=== PATIENT | female | born 1945 | race Caucasian/White ===

== ENCOUNTER → 2018-02-06 09:02 | Outpatient (CLI) | payer MEDICARE, MEDICAID, SELFPAY ==
--- NOTE | 2018-02-06 09:05 | XR_ITS ---
XR DEXA axial skeleton HISTORY: ITS.REASON: OSTEOPAROSIS ORDERING PHYSICIAN: Lona Mc PATIENT AGE: 72 years COMPARISON: None FINDINGS: The BMD measured at the Total Left femoral neck is 0.551 g/cm squared with a T score of -3.6. This is considered Osteoporotic according to the World Health Organization criteria. Fracture risk is High. Treatment is advised. IMPRESSION: Osteoporosis with high fracture risk. Treatment is advised. Suggest follow-up exam January 2019.
== END ==
PROVIDERS: PCP Nurse Practitioner Family; Visit Provider Nurse Practitioner Family
DX: M81.0 Age-related osteoporosis without current pathological fracture (principal)
CPT/HCPCS: 77080

== ENCOUNTER → 2021-03-16 09:14 | Outpatient (CLI) | payer MEDICARE, MEDICAID, SELFPAY ==
--- NOTE | 2021-03-16 09:19 | XR_ITS ---
PROCEDURE: XR DEXA AXIAL SKELETON CLINICAL HISTORY: OSTEOPOROSIS COMPARISON: CR DEXAAX XR DEXA axial skeleton from 02/06/2018 FINDINGS: The right hip BMD is 0.509 with a T-score of -3.6. The left hip BMD is 0.514 with a T-score of -3.5. The lumbar spine BMD is 0.773 with a T-score of -2.5. Previously the lowest density was in the left femur with a T-score of -3.6 IMPRESSION: This patient is considered osteoporotic according to the World Health Organization criteria. Fracture risk is high. Treatment is advised. Based on these results a follow-up exam is recommended in 1 year. Dictated by: Colton Fernandez MD 03/16/2021 14:05 Colton Fernandez MD in [place] 03/16/2021 14:05
== END ==
PROVIDERS: PCP Nurse Practitioner Family; Visit Provider Nurse Practitioner Family
DX: M81.0 Age-related osteoporosis without current pathological fracture (principal)
CPT/HCPCS: 77080

== ENCOUNTER → 2022-04-06 11:28 | Outpatient (CLI) | payer MEDICARE, MEDICAID, SELFPAY | PROVIDERS: PCP Student in an Organized Health Care Education/Training Program; Visit Provider Student in an Organized Health Care Education/Training Program | DX: N39.0 Urinary tract infection, site not specified (principal); B96.1 Klebsiella pneumoniae [K. pneumoniae] as the cause of diseases classified elsewhere | CPT/HCPCS: 87086; 87088; 87186 ==

== ENCOUNTER 2022-04-13 11:18 | Observation (INO) | payer MEDICARE, MEDICAID, SELFPAY ==
[2022-04-13] VITALS (12 sets, daily range): BP systolic 125–176; BP diastolic 54–98; PULSE 86–101; RESP 18–26; TEMP 36.8–37.1; O2SAT 87–100; BMI 16.2; BMI 16.0
--- NOTE | 2022-04-13 11:43 | XR_ITS ---
FINAL REPORT CLINICAL HISTORY: cough FINDINGS: CHEST TWO-VIEW Extensive bilateral airspace opacity most suspicious for pneumonia. Underlying emphysema. Trace bilateral pleural effusions. The mediastinum as a normal appearance. The cardiac silhouette is unremarkable. IMPRESSION: Extensive airspace opacity most suspicious for bilateral pneumonia. Reviewed, Interpreted and Dictated by Malena Pang MD Transcribed by Killian Ramirez Authenticated and . [facility]
--- NOTE | 2022-04-13 11:51 | PC.NURSE ---
pt ambulatory to radiology with creative technologist
--- NOTE | 2022-04-13 11:58 | PC.NURSE ---
pt back from radiology via w/c
[2022-04-13 12:04] LABS: Basophils # 0.1 K/mm3 (0-0.2); Basophils % 0.6 % (0.1-2.0); Eosinophils # 0.1 K/mm3 (0.0-0.4); Eosinophils % 0.7 % (0.1-12.0); Hematocrit 40.4 % (37.0-47.0); Hemoglobin 13.7 g/dL (12.2-16.2); Lymphocytes # 1.3 K/mm3 (0.7-4.5); Mean Corpuscular HGB Conc 33.8 g/dL (31.8-35.4); Mean Corpuscular Hemoglobin 31.6 pg (27.0-31.2); Mean Corpuscular Volume 93.3 fl (81-99); Mean Platelet Volume 8.2 fl (7.4-10.4); Monocytes # 0.7 K/mm3 (0.1-1.0); Monocytes % 4.7 % (1.7-9.3); Neutrophils # 12.5 K/mm3 (1.8-7.8); Platelet Count 501 K/mm3 (142-424); Red Blood Count 4.33 M/mm3 (4.20-5.40); Red Cell Distribution Width 12.8 % (11.5-17.5); White Blood Count 14.7 K/mm3 (4.8-10.8)
--- NOTE | 2022-04-13 12:09 | HMH.EDGENADL ---
Discharge Plan Disposition Patient Disposition: Admitted As Inpatient Condition: Fair Clinical Impressions Clinical Impression: Bilateral pneumonia, Hyponatremia Discharge ED Provider: Seamus Ahumada General Adult HPI General Chief complaint: Recheck/Abnormal Lab/Rx Stated complaint: possible infection, sent by Brandi Mc Time Seen by Provider: 04/13/22 11:25 Mode of Arrival: Ambulatory Source of Information: Patient Limitations: No Limitations Description of Symptoms (Recalled from ER Triage Doc. by RN): pt to ed via pov. pt states she was sent by pcp (brandi mc) for either a high or low wbc count and she states she was told she had some sort of infection. pt states she seen her pcp for generalized weakness and acough x2 weeks. pt states prior to that visit she was being treated for a uti dx earlier this month. spoke with pcp who states pt had labs drawn yesterday and her wbc came back at 17 with some electrolyte imbalances they wanted her to seek treatment for. History of Present Illness HPI narrative: Patient is a 76-year-old female with a past medical history of smoking, hypertension, COPD who presents with concern for abnormal lab. She states that she went to her PCPs office recently and had labs drawn. She says that she was told to come to the ED today because they were concerned that her white blood cell count was either high or low. She does not remember which one it was. We did call her PCP here and they report that her white blood cell count was 17. She says that during that time she said no fever or chills. She says that she has been having a productive cough with green sputum which is abnormal for her. She does not wear oxygen at home. She denies any abdominal pain. Does endorse some shortness of breath but this is baseline for her. Denies any urinary symptoms at this time. Related Data Home Medications Medication Instructions Recorded Confirmed buspirone 10 mg tablet 10 mg PO BID Anxiety 09/21/17 04/13/22 omeprazole 20 mg capsule,delayed 20 mg PO DAILY GERD 09/21/17 04/13/22 release tiotropium bromide 18 mcg capsule 1 puff inhalation DAILY Breathing 09/21/17 04/13/22 with inhalation device (Spiriva problems with HandiHaler) albuterol sulfate 2.5 mg/3 mL 2.5 mg inhalation Q4HP PRN Wheezing 04/13/22 04/13/22 (0.083 %) solution for nebulization alendronate 70 mg tablet 70 mg PO WEEKLY Osteoporosis 04/13/22 04/13/22 cefdinir 300 mg capsule 300 mg PO BID Infection 04/13/22 04/13/22 dextromethorphan-guaifenesin 30 1 tab PO Q12H Cough 04/13/22 04/13/22 mg-600 mg tablet extended [id number] hr lisinopril 20 1 tab PO DAILY Hypertension 04/13/22 04/13/22 mg-hydrochlorothiazide 25 mg tablet Allergies Allergy/AdvReac Type Severity Reaction Status Date / Time No Known Allergies Allergy Verified 04/06/22 11:07 [facility] Disclaimer: The information contained in this section may have been updated after the patient was seen, as this information can be updated by other users. Social History Smoking Status: Current every day smoker tobacco type: cigarettes alcohol intake: never current occupational status: retired Travel in the last 8 weeks: None household members: family housing: house ROS Obtained: Yes All systems reviewed & no additional complaints except as documented A 14 point review of system was obtained and otherwise negative except per HPI Physical Exam General General appearance: alert and in no apparent distress Head Head exam: atraumatic, normocephalic and normal inspection Eye Eye exam: Present normal appearance, PERRL and EOMI ENT ENT exam: Present normal exam, normal oropharynx, mucous membranes moist and normal external ear exam Neck Neck exam: Present normal inspection, full ROM and trachea midline; Absent meningismus or lymphadenopathy Chest Chest inspection: Present normal inspecti
[2022-04-13 12:11] LABS: Lactic Acid 0.8 mmol/L (0.7-2.1)
[2022-04-13 12:15] LABS: MANUAL DIFFERENTIAL MANUAL DIFFERENTIAL (MANUAL DIFF)
[2022-04-13 12:28] LABS: Alanine Aminotransferase 25 U/L (12-78); Albumin Level 3.6 g/dl (3.5-5.0); Albumin/Globulin Ratio 0.8 (1.1-1.8); Alkaline Phosphatase 138 U/L (38-126); Anion Gap 13.8 mEq/L (5-15); Aspartate Amino Transferase 47 U/L (14-36); Bilirubin,Total 0.8 mg/dl (0.2-1.3); Blood Urea Nitrogen 4 mg/dl (7-17); Calcium 8.7 mg/dl (8.4-10.2); Carbon Dioxide 32 mmol/L (22.0-30.0); Chloride 76 mmol/L (98-107); Creatinine Clearance Estimated 34 mL/min (50-200); Estimated Glomerular Filt Rate 121 ml/min (>60); GFR (African American) 146 ML/MIN (>60); Globulin 4.3 g/dL (1.3-3.2); Glucose 97 mg/dl (74-100); Potassium 3.8 mmoL/L (3.5-5.1); Sodium 118 mmol/L (136-145); Total Protein,Serum 7.9 g/dl (6.3-8.2)
[2022-04-13 12:29] LABS: Procalcitonin 0.075 ng/mL (0.0-2.0)
[2022-04-13 12:33] LABS: C-Reactive Protein 81.3 mg/L (0-4)
[2022-04-13 12:35] LABS: Microscopic, Urine URINE MICROSCOPIC (MICROSCOPIC)
[2022-04-13 12:39] LABS: Appearance,Urine CLEAR (Clear); Bilirubin,Urine Negative (Negative); Blood, Urine Negative (Negative); Color,Urine YELLOW (Yellow); Glucose,Urine (UA) Negative (Negative); Ketones,Urine 1+ (Negative); Leukocyte Esterase,Urine Negative (Negative); Nitrate,Urine Negative (Negative); Protein,Urine Negative (Negative)
[2022-04-13 12:39] LABS: NT Pro Brain Natriuretic Pep. 686 pg/mL (0-125)
[2022-04-13 12:58] LABS: Bacteria,Urine Trace /lpf
[2022-04-13 13:03] LABS: Lymphocytes % 13 % (10-50); Monocytes % 8 % (2-9); Neutrophils % 79 % (42-76); Platelet Estimate Slight Increase; RBC Morphology Normal; Total Cells Counted 100
[2022-04-13 13:23] LABS: Coronavirus 19, PCR Not Detected (NotDetected); Influenza A, PCR Not Detected (NotDetected); Influenza B, PCR Not Detected (NotDetected)
--- NOTE | 2022-04-13 13:34 | PC.NURSE ---
[id number] DR GOYAL SPEAKING WITH DR RIVERA FOR ADMISSION
--- NOTE | 2022-04-13 13:36 | PC.NURSE ---
DR GOYAL AT BEDSIDE TO DISCUSS ADMISSION WITH PT
--- NOTE | 2022-04-13 13:36 | PC.NURSE ---
CARE MANAGEMENT NOTIFIED OF ADMISSION
--- NOTE | 2022-04-13 13:41 | HMH.PHAINT1 ---
Pharmacy Intervention Comments: MEDICATION RECONCILIATION COMPLETED ON PATIENT USING EXTERNAL FILL HISTORY FROM PHARMACY. -JOE ALFRED, FARHAND
--- NOTE | 2022-04-13 14:22 | EXP.HP ---
History of Present Illness *Admission Date: 04/13/22 *Reason for visit:: Cough, poor appetite, abnormal labs with PCP. *History of present illness: Ms. Llamas is a pleasant 76-year-old female who presented to the ER at the request of her primary care physician due to abnormal labs obtained yesterday. She states that she has been sick for the past week or more with mildly productive cough. Had fever last week T-max 102. Saw her primary care doctor yesterday and was started on cefdinir (has taken 2 doses). Feels marginally better this morning but was called by her PCP after labs returned showing low sodium and elevated white count. On arrival to the ER, patient is ill-appearing but not toxic. Vitals with tachycardia and intermittent hypoxia. Started on 2 L nasal cannula. Work-up initiated including chest x-ray, CBC, CMP. Sodium of 118, white cell count of 14,000. Chest imaging showing bilateral airspace disease/infiltrates. Medicine consulted for admission for hyponatremia and pneumonia. Patient started on azithromycin and ceftriaxone. Requiring 2 L nasal cannula oxygen by the time she arrived to the floor. On my evaluation, she has her sister and grandson at bedside. They assist with providing history. Patient denies any confusion, chest pain, nausea, vomiting, diarrhea. No falls. Does complain of being weak and having lack of appetite for the past week. Still making urine but less than usual. Is feeling somewhat better since having initiation of IV fluids and supplemental oxygen. [facility] Disclaimer: The information contained in this section may have been updated after the patient was seen, as this information can be updated by other users. Medical History Anxiety Cataract GERD (gastroesophageal reflux disease) Osteoporosis Surgical History H/O right wrist surgery Family History Hyperlipidemia Heart attack Hypertension Social History Smoking Status: Current every day smoker tobacco type: cigarettes alcohol intake: never current occupational status: retired Travel in the last 8 weeks: None household members: family housing: house Review of Systems Review of Systems Review of systems (narrative): 14 point review of systems performed, pertinent positives and negatives as per [facility] Meds Home Medications and Allergies Home Medications Medication Instructions Recorded Confirmed Type buspirone 10 mg tablet 10 mg PO BID Anxiety 09/21/17 04/13/22 History omeprazole 20 mg capsule,delayed 20 mg PO DAILY GERD 09/21/17 04/13/22 History release tiotropium bromide 18 mcg capsule 1 puff inhalation DAILY Breathing 09/21/17 04/13/22 History with inhalation device (Spiriva problems with HandiHaler) albuterol sulfate 2.5 mg/3 mL 2.5 mg inhalation Q4HP PRN Wheezing 04/13/22 04/13/22 History (0.083 %) solution for nebulization alendronate 70 mg tablet 70 mg PO WEEKLY Osteoporosis 04/13/22 04/13/22 History cefdinir 300 mg capsule 300 mg PO BID Infection 04/13/22 04/13/22 History dextromethorphan-guaifenesin 30 1 tab PO Q12H Cough 04/13/22 04/13/22 History mg-600 mg tablet extended [id number] hr lisinopril 20 1 tab PO DAILY Hypertension 04/13/22 04/13/22 History mg-hydrochlorothiazide 25 mg tablet New Prescriptions to Start Prescriptions: Allergies Allergy/AdvReac Type Severity Reaction Status Date / Time No Known Allergies Allergy Verified 04/06/22 11:07 Exam Data for Last 24 hours Vital signs and Labs for Last 24 Hours: Temp Pulse Resp BP Pulse Ox 98.8 F 89 20 153/80 H 91 L 04/13/22 11:34 04/13/22 13:00 04/13/22 11:34 04/13/22 13:00 04/13/22 13:00 Laboratory Results - last 24 hr 04/13/22 11:25: WBC 14.7 H, RBC 4.33, Hgb 13.7, Hct 40.4, MCV 93.3, MCH 31.6
--- NOTE | 2022-04-13 14:33 | PC.NURSE ---
called report to anum montez
--- NOTE | 2022-04-13 14:48 | PC.NURSE ---
Pt arrived to the floor at this time
[2022-04-13 16:27] LABS: Creatinine,Urine Random 22 mg/dL (Not Estab.)
[2022-04-13 19:28] LABS: Chloride 84 mmol/L (98-107); Sodium 121 mmol/L (136-145)
[2022-04-13 19:29] LABS: Potassium 3.7 mmoL/L (3.5-5.1)
[2022-04-13 19:31] LABS: Blood Urea Nitrogen 4 mg/dl (7-17); Creatinine Clearance Estimated 33 mL/min (50-200); Estimated Glomerular Filt Rate 98 ml/min (>60); GFR (African American) 118 ML/MIN (>60)
[2022-04-13 19:32] LABS: Anion Gap 8.7 mEq/L (5-15); Calcium 7.6 mg/dl (8.4-10.2); Carbon Dioxide 32 mmol/L (22.0-30.0); Glucose 200 mg/dl (74-100)
[2022-04-14] VITALS (10 sets, daily range): BP systolic 121–144; BP diastolic 58–84; PULSE 70–104; RESP 17–22; TEMP 36.6–37.1; O2SAT 87–98; BMI 16.2
[2022-04-14 00:19] LABS: Chloride 86 mmol/L (98-107); Potassium 3.7 mmoL/L (3.5-5.1); Sodium 124 mmol/L (136-145)
[2022-04-14 00:22] LABS: Anion Gap 8.7 mEq/L (5-15); Blood Urea Nitrogen 3 mg/dl (7-17); Calcium 7.5 mg/dl (8.4-10.2); Carbon Dioxide 33 mmol/L (22.0-30.0); Creatinine Clearance Estimated 33 mL/min (50-200); Estimated Glomerular Filt Rate 121 ml/min (>60); GFR (African American) 146 ML/MIN (>60); Glucose 156 mg/dl (74-100)
--- NOTE | 2022-04-14 01:59 | PC.NURSE ---
Pt laying in bed resting at this time, Lungs have been Diminished, resp even and non labored. Pt has had a non productive cough. Was given cough medication one time. Pt has been encouraged to deep breath.Pt has been educated on medications and Plan of care, encouraged to report any needs. Bed locked in low position, side rails up x 2, call light in reach.
[2022-04-14 04:24] LABS: Basophils # 0.1 K/mm3 (0-0.2); Basophils % 0.5 % (0.1-2.0); Eosinophils # 0.1 K/mm3 (0.0-0.4); Eosinophils % 0.5 % (0.1-12.0); Hematocrit 34.8 % (37.0-47.0); Lymphocytes # 0.6 K/mm3 (0.7-4.5); Lymphocytes % 4.8 % (10-50); Mean Corpuscular HGB Conc 34.6 g/dL (31.8-35.4); Mean Corpuscular Hemoglobin 32.4 pg (27.0-31.2); Mean Corpuscular Volume 93.6 fl (81-99); Mean Platelet Volume 7.7 fl (7.4-10.4); Monocytes # 0.1 K/mm3 (0.1-1.0); Monocytes % 0.8 % (1.7-9.3); Neutrophils # 11.7 K/mm3 (1.8-7.8); Neutrophils % 93.4 % (37.0-80.0); Platelet Count 447 K/mm3 (142-424); Red Blood Count 3.72 M/mm3 (4.20-5.40); Red Cell Distribution Width 12.8 % (11.5-17.5); White Blood Count 12.6 K/mm3 (4.8-10.8)
[2022-04-14 04:28] LABS: Chloride 87 mmol/L (98-107)
[2022-04-14 04:29] LABS: Sodium 125 mmol/L (136-145)
[2022-04-14 04:31] LABS: Alanine Aminotransferase 19 U/L (12-78); Aspartate Amino Transferase 35 U/L (14-36); Bilirubin,Total 0.3 mg/dl (0.2-1.3); Blood Urea Nitrogen 3 mg/dl (7-17); Creatinine Clearance Estimated 34 mL/min (50-200); Estimated Glomerular Filt Rate 121 ml/min (>60); GFR (African American) 146 ML/MIN (>60)
[2022-04-14 04:32] LABS: Albumin Level 2.8 g/dl (3.5-5.0); Albumin/Globulin Ratio 0.8 (1.1-1.8); Alkaline Phosphatase 100 U/L (38-126); Calcium 7.6 mg/dl (8.4-10.2); Carbon Dioxide 35 mmol/L (22.0-30.0); Globulin 3.6 g/dL (1.3-3.2); Glucose 132 mg/dl (74-100); Magnesium 1.5 mg/dl (1.6-2.3); Total Protein,Serum 6.4 g/dl (6.3-8.2)
[2022-04-14 04:41] LABS: Hemoglobin 12.2 g/dL (12.2-16.2); MANUAL DIFFERENTIAL MANUAL DIFFERENTIAL (MANUAL DIFF)
[2022-04-14 05:15] LABS: Lymphocytes % 6 % (10-50); Monocytes % 1 % (2-9); Neutrophils % 93 % (42-76); Platelet Estimate Slight Increase; RBC Morphology Normal; Total Cells Counted 100
--- NOTE | 2022-04-14 07:06 | EXP.ACUTE.PN ---
Subjective *Date: 04/14/22 *Time: 12:17 Interval history: Ms. Llamas states she feels a little bit better today. Tolerating good p.o. intake. Improved appetite. Stable on 2 L nasal cannula oxygen. Blood pressure stable. Family at bedside and updated of plan. Denies any confusion, chest pain, nausea, vomiting. Medical Exam Vital signs and Labs for Last 24 Hours: Vital Signs Temp Pulse Pulse Resp BP BP Pulse Ox 04/14/22 06:12 74 04/14/22 06:12 70 04/14/22 06:12 94 L 04/14/22 04:00 97.8 F 93 H 20 144/84 H 98 04/13/22 23:53 98.6 F 95 H 18 125/54 L 100 04/13/22 23:09 86 04/13/22 23:09 86 04/13/22 20:00 98.4 F 98 H 26 H 129/63 92 L 04/13/22 18:26 99 H 04/13/22 18:26 99 H 04/13/22 18:26 94 L 04/13/22 15:05 94 L 04/13/22 15:02 98.2 F 94 H 20 151/80 H 87 L 04/13/22 14:48 98.8 F 94 H 20 151/80 H 04/13/22 13:00 89 153/80 H 91 L 04/13/22 12:30 90 168/90 H 92 L 04/13/22 12:28 95 H 176/89 H 91 L 04/13/22 12:00 94 H 166/95 H 96 04/13/22 11:34 98.8 F 101 H 20 172/98 H 93 L Intake and Output 04/13/22 04/13/22 04/14/22 15:59 23:59 07:59 Intake Total 240 / 240 968 / 968 Output Total 0 / 400 400 / 400 0 / 0 Balance 0 / -160 -160 / -160 968 / 968 Intake: Intake, Oral Amount 240 / 240 Intake, Total IV Amount 968 / 968 0.9 % Sodium Chloride 1,000 ml 968 / 968 @ 50 mls/hr IV .Q20H [facility] Rx#: [id number] Output: Output, Urine Amount 0 / 400 400 / 400 0 / 0 Other: Number of Voids 1 1 Number of Unmeasured Voids 1 1 1 Weight 42.383 kg 43.318 kg Patient Weight 04/14/22 23:59 Weight 43.318 kg Laboratory Results - last 24 hr 04/13/22 11:25: WBC 14.7 H, RBC 4.33, Hgb 13.7, Hct 40.4, MCV 93.3, MCH 31.6 H, MCHC 33.8, RDW 12.8, Plt Count 501 H, MPV 8.2, Neut % (Auto) 85.0 H, Lymph % (Auto) 9.0 L, [place] % (Auto) 4.7, Eos % (Auto) 0.7, Baso % (Auto) 0.6, Neut # (Auto) 12.5 H, Lymph # (Auto) 1.3, [place] # (Auto) 0.7, Eos # (Auto) 0.1, Baso # (Auto) 0.1, Total Counted 100, Neutrophils % (Manual) 79 H, Lymphocytes % (Manual) 13, Monocytes % (Manual) 8, Platelet Estimate Slight increase, RBC Morphology Normal 04/13/22 11:25: Sodium 118 L, Potassium 3.8, Chloride 76 L, Carbon Dioxide 32 H, Anion Gap 13.8, BUN 4 L, Creatinine 0.50 L, Estimated Creat Clear 34, Estimated GFR 121, Est GFR ( Amer) 146, Glucose 97, Calcium 8.7, Total Bilirubin 0.8, AST 47 H, ALT 25, Alkaline Phosphatase 138 H, C-Reactive Protein 81.3 H, NT-Pro-B Natriuret Pep 686 H, Total Protein 7.9, Albumin 3.6, Globulin 4.3 H, Albumin/Globulin Ratio 0.8 L 04/13/22 11:25: Lactate 0.8 04/13/22 11:25: Procalcitonin 0.075 04/13/22 12:17: Urine Color Yellow, Urine Appearance Clear, Urine pH 7.0, Ur Specific [place] 1.010, Urine Protein Negative, Urine Glucose (UA) Negative, Urine Ketones 1+, Urine Blood Negative, Urine Nitrate Negative, Urine Bilirubin Negative, Urine Urobilinogen 1.0, Ur Leukocyte Esterase Negative, Urine RBC None, Urine WBC None, Ur Squamous Epith Cells 3-5, Urine Bacteria Trace 04/13/22 12:17: Urine Creatinine 22 04/13/22 13:18: SARS-CoV-2 (PCR) Not detected, Influenza A Untype (PCR) Not detected, Influenza Type B (PCR) Not detected 04/13/22 19:06: Sodium 121 L, Potassium 3.7, Chloride 84 L, Carbon Dioxide 32 H, Anion Gap 8.7, BUN 4 L, Creatinine 0.60, Estimated Creat Clear 33, Estimated GFR 98, Est GFR ( Amer) 118, Glucose 200 H D, Calcium 7.6 L 04/14/22 00:08: Sodium 124 L, Potassium 3.7, Chloride 86 L, Carbon Dioxide 33 H, Anion Gap 8.7, BUN 3 L, Creatinine 0.50 L, Estimated Creat Clear 33, Estimated GFR 121, Est GFR ( Amer) 146 D, Glucose 156 H D, Calcium 7.5 L 04/14/22 04:15: WBC 12.6 H, RBC 3.72 L, Hgb 12.2 D, Hct 34.8 L, MCV 93.6, MCH 32.4 H, MCHC 34.6, RDW 12.8, Plt Count 447 H, MPV 7.7, Neut % (Auto) 93.4 H, Lymph % (Auto) 4.8 L, [place] % (Auto) 0.8 L, Eos % (Auto) 0.5, Baso
--- NOTE | 2022-04-14 12:24 | EXP.DC.SUM ---
General Admission date:: 04/13/22 Discharge date: 04/16/22 HPI HPI HPI: Ms. Llamas is a pleasant 76-year-old female who presented to the ER at the request of her primary care physician due to abnormal labs obtained yesterday. She states that she has been sick for the past week or more with mildly productive cough. Had fever last week T-max 102. Saw her primary care doctor yesterday and was started on cefdinir (has taken 2 doses). Feels marginally better this morning but was called by her PCP after labs returned showing low sodium and elevated white count. On arrival to the ER, patient is ill-appearing but not toxic. Vitals with tachycardia and intermittent hypoxia. Started on 2 L nasal cannula. Work-up initiated including chest x-ray, CBC, CMP. Sodium of 118, white cell count of 14,000. Chest imaging showing bilateral airspace disease/infiltrates. Medicine consulted for admission for hyponatremia and pneumonia. Patient started on azithromycin and ceftriaxone. Requiring 2 L nasal cannula oxygen by the time she arrived to the floor. On my evaluation, she has her sister and grandson at bedside. They assist with providing history. Patient denies any confusion, chest pain, nausea, vomiting, diarrhea. No falls. Does complain of being weak and having lack of appetite for the past week. Still making urine but less than usual. Is feeling somewhat better since having initiation of IV fluids and supplemental oxygen. Hospital Course Hospital Course Hospital Course: Ms. Llamas is a 76-year-old female with extensive smoking history who presents with 1 week of productive cough, decreased appetite, fatigue.? Found to have new oxygen requirement, imaging with bilateral pneumonia, and significant hyponatremia.? Admitted to medicine for further management.? Problems addressed as follows: Acute hypoxemic respiratory failure Bilateral pneumonia COPD -Patient admitted for pneumonia with positive findings on chest imaging, elevated white cell count, and new oxygen requirement. Tolerated oxygen with weaning to 1 L on day of discharge. Sent home with supplemental oxygen to continue at home until symptoms completely resolve from pneumonia and able to wean off over the next few weeks. Treated with Spiriva and DuoNebs during hospitalization. Started on azithromycin and ceftriaxone for community-acquired pneumonia. Transitioned to cefdinir at discharge to complete empiric course, completed azithromycin course during hospitalization. Additionally will complete 2 more days of steroids for 5 days total of steroids for COPD component. Patient overall has done well and is feeling significantly better per her report. Clinically exam has improved. Because of worsening dyspnea with volume resuscitation for hyponatremia below, was diuresed x1 with Lasix. Had impressive response. Is +1 L for duration of hospitalization after diuresis. Hyponatremia -Patient symptomatic with weakness, improved with fluids and treatment of pneumonia. Sodium improved from 118 on admission to 127 on day of discharge. Had initial improvement with normal saline but plateaued thereafter necessitating treatment with 8 hours of 3% hypertonic saline at 25 cc an hour. Given clinical improvement, had shared decision-making conversation with patient and family. At this time I feel that her hyponatremia is multifactorial from her dehydration and a marginal component of SIADH from her underlying lung infection. She is drinking adequate fluids, tolerating good p.o. intake. Encourage drinking fluids with electrolytes such as Gatorade or Pedialyte. We will also initiate salt tablet once daily with repeat labs in 2 days after discharge. I will personally follow these up and if sodium still not within normal range, will increase salt tablet to twice daily until she follows with her PCP. No concern for seizure risk at this time. Patient states she feels back to her normal self. At this point I feel she is
--- NOTE | 2022-04-14 13:46 | PC.NURSE ---
Addendum entered by Danielle Tong RN 04/14/22 16:51: pt has done well this shift. no c/o n/v/p or diarrhea. pt stated this morning she feels much better and had a good nights rest. pt has been up to chair majority of day. o2 2l with sats around 93%. family currently at bedside. cb within reach no concerns voiced at this time. Original Note: on RA pts o2 dropped to 85% when ambulating. while at rest o2 at 87%
[2022-04-14 18:27] LABS: Chloride 89 mmol/L (98-107); Sodium 126 mmol/L (136-145)
[2022-04-14 18:28] LABS: Potassium 4.2 mmoL/L (3.5-5.1)
[2022-04-14 18:30] LABS: Anion Gap 13.2 mEq/L (5-15); Blood Urea Nitrogen 7 mg/dl (7-17); Carbon Dioxide 28 mmol/L (22.0-30.0); Creatinine Clearance Estimated 34 mL/min (50-200); Estimated Glomerular Filt Rate 98 ml/min (>60); GFR (African American) 118 ML/MIN (>60)
[2022-04-14 18:31] LABS: Glucose 224 mg/dl (74-100)
[2022-04-15] VITALS (11 sets, daily range): BP systolic 127–164; BP diastolic 64–84; PULSE 92–118; RESP 17–20; TEMP 36.5–36.9; O2SAT 88–97; BMI 16.2
--- NOTE | 2022-04-15 05:52 | PC.NURSE ---
Pt has rested well through the night. A&Ox4. 2L NC. Pts plan is to be going home on O2. Receiving IV fluids. No complaints of pain through the night. VSS.
[2022-04-15 06:37] LABS: Basophils % 0.1 % (0.1-2.0); Eosinophils # 0.2 K/mm3 (0.0-0.4); Eosinophils % 1.1 % (0.1-12.0); Hematocrit 31.9 % (37.0-47.0); Hemoglobin 10.5 g/dL (12.2-16.2); Lymphocytes # 1.3 K/mm3 (0.7-4.5); Lymphocytes % 6.9 % (10-50); Mean Corpuscular HGB Conc 32.9 g/dL (31.8-35.4); Mean Corpuscular Hemoglobin 32.1 pg (27.0-31.2); Mean Corpuscular Volume 97.8 fl (81-99); Mean Platelet Volume 8.2 fl (7.4-10.4); Monocytes # 0.7 K/mm3 (0.1-1.0); Monocytes % 3.6 % (1.7-9.3); Neutrophils % 88.2 % (37.0-80.0); Platelet Count 482 K/mm3 (142-424); Red Blood Count 3.27 M/mm3 (4.20-5.40); Red Cell Distribution Width 12.9 % (11.5-17.5); White Blood Count 19.3 K/mm3 (4.8-10.8)
[2022-04-15 06:48] LABS: MANUAL DIFFERENTIAL MANUAL DIFFERENTIAL (MANUAL DIFF)
[2022-04-15 06:58] LABS: Anion Gap 2.9 mEq/L (5-15); Blood Urea Nitrogen 7 mg/dl (7-17); Calcium 7.2 mg/dl (8.4-10.2); Carbon Dioxide 32 mmol/L (22.0-30.0); Chloride 94 mmol/L (98-107); Creatinine Clearance Estimated 34 mL/min (50-200); Estimated Glomerular Filt Rate 156 ml/min (>60); GFR (African American) 189 ML/MIN (>60); Glucose 100 mg/dl (74-100); Magnesium 1.9 mg/dl (1.6-2.3); Potassium 3.9 mmoL/L (3.5-5.1); Sodium 125 mmol/L (136-145)
--- NOTE | 2022-04-15 08:08 | PC.NURSE ---
I'S & O'S INCLUDE PREVIOUS SHIFT
[2022-04-15 08:30] LABS: Eosinophils % 1 % (0-3); Lymphocytes % 10 % (10-50); Monocytes % 4 % (2-9); Neutrophils % 85 % (42-76); Total Cells Counted 100
[2022-04-15 08:31] LABS: Platelet Estimate Slight Increase; RBC Morphology Normal
[2022-04-15 10:20] LABS: Sodium, Urine 43 mmol/L (Not Estab.)
[2022-04-15 15:36] LABS: Chloride 93 mmol/L (98-107); Sodium 126 mmol/L (136-145)
[2022-04-15 15:39] LABS: Blood Urea Nitrogen 7 mg/dl (7-17); Carbon Dioxide 28 mmol/L (22.0-30.0); Creatinine Clearance Estimated 34 mL/min (50-200); Estimated Glomerular Filt Rate 121 ml/min (>60); GFR (African American) 146 ML/MIN (>60)
[2022-04-15 15:45] LABS: Calcium 7.7 mg/dl (8.4-10.2); Glucose 224 mg/dl (74-100)
--- NOTE | 2022-04-15 16:54 | EXP.ACUTE.PN ---
Subjective *Date: 04/15/22 *Time: 17:28 Interval history: Patient remained dynamically stable. Able to wean to 1 L oxygen today. Initially anticipated possible discharge if sodium improved however sodium has plateaued at 126. Tolerating p.o. intake, denies any nausea, chest pain, vomiting, diarrhea. Ambulating to bathroom independently. No confusion. Weakness improved. Mild tachypnea, given fluid balance of +4 L, will diurese x1 this afternoon. Medical Exam Vital signs and Labs for Last 24 Hours: Vital Signs Temp Pulse Pulse Resp BP Pulse Ox 04/15/22 14:53 97.9 F 110 H 20 141/73 H 92 L 04/15/22 11:20 95 H 04/15/22 11:20 93 H 04/15/22 11:20 93 L 04/15/22 11:18 98.2 F 95 H 17 127/67 93 L 04/15/22 08:27 88 L 04/15/22 07:19 98.4 F 105 H 19 148/84 H 90 L 04/15/22 06:33 92 H 04/15/22 06:33 96 H 04/15/22 06:33 96 04/15/22 03:44 98.4 F 94 H 20 131/64 93 L 04/14/22 23:44 98.3 F 94 H 20 121/58 L 95 04/14/22 19:57 98.5 F 104 H 22 131/66 96 04/14/22 18:50 91 H 04/14/22 18:50 96 H 04/14/22 18:50 98 Intake and Output 04/15/22 04/15/22 04/15/22 07:59 15:59 23:59 Intake Total 240 / 2622 238 / 2622 Output Total 0 / 0 0 / 0 Balance 240 / 2622 238 / 2622 Intake: Intake, Oral Amount 240 / 600 360 / 600 Intake, Total IV Amount 2021 0.9 % Sodium Chloride 1,000 ml 167 / 1672 @ 100 mls/hr IV .Q10H [facility] Rx#: [id number] Azithromycin 500 mg In 0.9 % 250 / 250 Sodium Chloride 250 ml @ 250 mls/hr IV Q24H [facility] Rx#:[id number] Ceftriaxone Sodium 2 gm In 0.9 100 / 100 % Sodium Chloride 100 ml @ 200 mls/hr IV Q24H [facility] Rx#:[id number] Output: Output, Urine Amount 0 / 0 0 / 0 Other: Number of Unmeasured Voids 1 1 Weight 43.3 kg Patient Weight 04/15/22 23:59 Weight 43.3 kg Laboratory Results - last 24 hr 04/13/22 12:17: Urine Sodium 43 04/14/22 18:12: Sodium 126 L, Potassium 4.2, Chloride 89 L, Carbon Dioxide 28, Anion Gap 13.2, BUN 7 D, Creatinine 0.60, Estimated Creat Clear 34, Estimated GFR 98, Est GFR ( Amer) 118, Glucose 224 H D, Calcium 8.0 L 04/15/22 06:21: WBC 19.3 H D, RBC 3.27 L, Hgb 10.5 L, Hct 31.9 L, MCV 97.8, MCH 32.1 H, MCHC 32.9, RDW 12.9, Plt Count 482 H, MPV 8.2, Neut % (Auto) 88.2 H, Lymph % (Auto) 6.9 L, [place] % (Auto) 3.6, Eos % (Auto) 1.1, Baso % (Auto) 0.1, Neut # (Auto) 17.0 H, Lymph # (Auto) 1.3, [place] # (Auto) 0.7, Eos # (Auto) 0.2, Baso # (Auto) 0.0, Total Counted 100, Neutrophils % (Manual) 85 H, Lymphocytes % (Manual) 10, Monocytes % (Manual) 4, Eosinophils % (Manual) 1, Platelet Estimate Slight increase, RBC Morphology Normal 04/15/22 06:21: Sodium 125 L, Potassium 3.9, Chloride 94 L, Carbon Dioxide 32 H, Anion Gap 2.9 L, BUN 7, Creatinine 0.40 L D, Estimated Creat Clear 34, Estimated GFR 156, Est GFR ( Amer) 189 D, Glucose 100 D, Calcium 7.2 L, Magnesium 1.9 D 04/15/22 15:09: Sodium 126 L, Potassium 4.0, Chloride 93 L, Carbon Dioxide 28, Anion Gap 9.0, BUN 7, Creatinine 0.50 L D, Estimated Creat Clear 34, Estimated GFR 121, Est GFR ( Amer) 146 D, Glucose 224 H D, Calcium 7.7 L I & O for Labs for Last 24 Hours: Intake & Output 04/12/22 04/13/22 04/14/22 04/15/22 23:59 23:59 23:59 23:59 Intake Total 240 / 240 2850 / 2850 2622 / 2622 Output Total 400 / 400 1000 / 1000 0 / 0 Balance -160 / -160 1850 / 1850 2622 / 2622 Weight 42.383 kg 43.31 kg 43.3 kg Microbiology Reports for the Last 24 Hours: Microbiology 04/13/22 11:25 Blood Blood Culture - Preliminary NO GROWTH AFTER 48 HOURS 04/13/22 11:25 Blood Blood Culture - Preliminary NO GROWTH AFTER 48 HOURS 04/13/22 18:52 Sputum - Expectorated Sputum Gram Stain - Final 04/13/22 18:52 Sputum - Expectorated Sputum Sputum Culture - Preliminary Constitutional: Present n
--- NOTE | 2022-04-15 17:16 | PC.NURSE ---
Pt is alert and oriented x4. She's been weaned to 1L NC with O2 sats measuring >90%. She was 88% on RA at rest. She was up to the chair for a approx 2 hours this am and tolerated well. She's ambulated to the bathroom with standby assist. She's been drinking gatorade and pepsi t/o the shift. Appetite has been OK. No requests or complaints at this time. Bed is locked and in the lowest position, call light is within reach.
[2022-04-16] VITALS (7 sets, daily range): BP systolic 134–154; BP diastolic 68–81; PULSE 93–110; RESP 18–20; TEMP 36.6–37; O2SAT 87–95; BMI 17.9
--- NOTE | 2022-04-16 05:30 | PC.NURSE ---
Pt is alert and oriented x4. She's been weaned to 1L NC with O2 sats measuring >90%. She was 88% on RA at rest. She has gotten up several times tonight to use the restroom. Her goal is for her sodium to be at least 130 to be discharged home.
[2022-04-16 06:09] LABS: Basophils # 0.1 K/mm3 (0-0.2); Basophils % 0.4 % (0.1-2.0); Eosinophils # 0.1 K/mm3 (0.0-0.4); Eosinophils % 0.4 % (0.1-12.0); Hematocrit 35.4 % (37.0-47.0); Hemoglobin 11.4 g/dL (12.2-16.2); Lymphocytes # 1.8 K/mm3 (0.7-4.5); Lymphocytes % 11.8 % (10-50); Mean Corpuscular HGB Conc 32.1 g/dL (31.8-35.4); Mean Corpuscular Volume 96.6 fl (81-99); Mean Platelet Volume 7.5 fl (7.4-10.4); Monocytes # 0.8 K/mm3 (0.1-1.0); Monocytes % 5.4 % (1.7-9.3); Neutrophils # 12.2 K/mm3 (1.8-7.8); Neutrophils % 82.1 % (37.0-80.0); Platelet Count 494 K/mm3 (142-424); Red Blood Count 3.67 M/mm3 (4.20-5.40); Red Cell Distribution Width 12.8 % (11.5-17.5); White Blood Count 14.9 K/mm3 (4.8-10.8)
[2022-04-16 06:12] LABS: Anion Gap 5.9 mEq/L (5-15); Blood Urea Nitrogen 7 mg/dl (7-17); Calcium 7.6 mg/dl (8.4-10.2); Carbon Dioxide 36 mmol/L (22.0-30.0); Chloride 85 mmol/L (98-107); Creatinine Clearance Estimated 37 mL/min (50-200); Estimated Glomerular Filt Rate 156 ml/min (>60); GFR (African American) 189 ML/MIN (>60); Glucose 80 mg/dl (74-100); Potassium 3.9 mmoL/L (3.5-5.1); Sodium 123 mmol/L (136-145)
--- NOTE | 2022-04-16 08:14 | EXP.PHA.PN ---
Subjective *Date: 04/16/22 *Time: 08:15 Medical Exam Vital signs and Labs for Last 24 Hours: Vital Signs Temp Pulse Pulse Resp BP Pulse Ox 04/16/22 08:00 98.4 F 107 H 18 144/76 H 95 04/16/22 06:22 97 H 04/16/22 06:22 98 H 04/16/22 06:22 91 L 04/16/22 03:59 97.8 F 98 H 20 134/68 93 L 04/15/22 23:57 97.7 F 96 H 20 147/68 H 92 L 04/15/22 20:00 98 F 118 H 20 164/81 H 94 L 04/15/22 19:45 97 04/15/22 18:35 100 H 04/15/22 18:35 105 H 04/15/22 18:35 93 L 04/15/22 14:53 97.9 F 110 H 20 141/73 H 92 L 04/15/22 11:20 95 H 04/15/22 11:20 93 H 04/15/22 11:20 93 L 04/15/22 11:18 98.2 F 95 H 17 127/67 93 L 04/15/22 08:27 88 L Intake and Output 04/15/22 04/16/22 04/16/22 23:59 07:59 15:59 Intake Total 360 / 2982 120 / 120 Output Total 1750 / 1750 200 / 200 Balance -1390 / 1232 -200 / -80 120 / -80 Intake: Intake, Oral Amount 360 / 960 120 / 120 Output: Output, Urine Amount 1750 / 1750 200 / 200 Other: Number of Unmeasured Voids 1 Weight 47.763 kg Patient Weight 04/16/22 23:59 Weight 47.763 kg Laboratory Results - last 24 hr 04/13/22 12:17: Urine Sodium 43 04/15/22 06:21: Total Counted 100, Neutrophils % (Manual) 85 H, Lymphocytes % (Manual) 10, Monocytes % (Manual) 4, Eosinophils % (Manual) 1, Platelet Estimate Slight increase, RBC Morphology Normal 04/15/22 15:09: Sodium 126 L, Potassium 4.0, Chloride 93 L, Carbon Dioxide 28, Anion Gap 9.0, BUN 7, Creatinine 0.50 L D, Estimated Creat Clear 34, Estimated GFR 121, Est GFR ( Amer) 146 D, Glucose 224 H D, Calcium 7.7 L 04/16/22 05:49: WBC 14.9 H, RBC 3.67 L, Hgb 11.4 L, Hct 35.4 L, MCV 96.6, MCH 31.0, MCHC 32.1, RDW 12.8, Plt Count 494 H, MPV 7.5, Neut % (Auto) 82.1 H, Lymph % (Auto) 11.8, Catron % (Auto) 5.4, Eos % (Auto) 0.4, Baso % (Auto) 0.4, Neut # (Auto) 12.2 H, Lymph # (Auto) 1.8, Catron # (Auto) 0.8, Eos # (Auto) 0.1, Baso # (Auto) 0.1 04/16/22 05:49: Sodium 123 L, Potassium 3.9, Chloride 85 L, Carbon Dioxide 36 H, Anion Gap 5.9, BUN 7, Creatinine 0.40 L, Estimated Creat Clear 37, Estimated GFR 156, Est GFR ( Amer) 189 D, Glucose 80 D, Calcium 7.6 L I & O for Labs for Last 24 Hours: Intake & Output 04/13/22 04/14/22 04/15/22 04/16/22 23:59 23:59 23:59 23:59 Intake Total 240 / 240 2850 / 2850 2982 / 2982 120 / 120 Output Total 400 / 400 1000 / 1000 1750 / 1750 200 / 200 Balance -160 / -160 1850 / 1850 1232 / 1232 -80 / -80 Weight 42.383 kg 43.31 kg 43.3 kg 47.763 kg Microbiology Reports for the Last 24 Hours: Microbiology 04/13/22 11:25 Blood Blood Culture - Preliminary NO GROWTH AFTER 48 HOURS 04/13/22 11:25 Blood Blood Culture - Preliminary NO GROWTH AFTER 48 HOURS 04/13/22 18:52 Sputum - Expectorated Sputum Gram Stain - Final 04/13/22 18:52 Sputum - Expectorated Sputum Sputum Culture - Preliminary The patient's infection will respond to the chosen ABx?: Yes (SENS TO CEFTRIAXONE) Is the patient receiving the right drug, dose, and route?: Yes Could a more targeted ABx be ordered?: No
--- NOTE | 2022-04-16 11:21 | DIET.NUTRFU ---
Reviewed during rounds today, no BM noted, nursing and provider aware. According to patient it is not unusual to go day without BM. Na is still low at 123 yesterday was 125. Provider started 3% NaCl hypotonic with labs ordered again at 1:00. Goal is to get her Na up to 128-133 before discharge. Otherwise she is ready. She continues on regular diet with 50% intake for most meals, supplements are in place for additional calories and protein.
[2022-04-16 14:11] LABS: Chloride 86 mmol/L (98-107); Sodium 127 mmol/L (136-145)
[2022-04-16 14:12] LABS: Potassium 4.6 mmoL/L (3.5-5.1)
[2022-04-16 14:14] LABS: Blood Urea Nitrogen 6 mg/dl (7-17); Creatinine Clearance Estimated 37 mL/min (50-200); Estimated Glomerular Filt Rate 121 ml/min (>60); GFR (African American) 146 ML/MIN (>60)
[2022-04-16 14:15] LABS: Anion Gap 8.6 mEq/L (5-15); Carbon Dioxide 37 mmol/L (22.0-30.0); Glucose 155 mg/dl (74-100)
[2022-04-16 17:45] LABS: Chloride 86 mmol/L (98-107); Potassium 4.6 mmoL/L (3.5-5.1); Sodium 126 mmol/L (136-145)
[2022-04-16 17:48] LABS: Anion Gap 9.6 mEq/L (5-15); Blood Urea Nitrogen 7 mg/dl (7-17); Carbon Dioxide 35 mmol/L (22.0-30.0); Creatinine Clearance Estimated 37 mL/min (50-200); Estimated Glomerular Filt Rate 156 ml/min (>60); GFR (African American) 189 ML/MIN (>60); Glucose 198 mg/dl (74-100)
--- NOTE | 2022-04-19 14:11 | CARE MANAGER ---
Spoke with patient for post-discharge phone interview, no issues noted.
== END 2022-04-16 18:39 | disposition home or self-care (01) | DRG 193 ==
LOC: ER 11:32 → 2ND 13:56
PROVIDERS: Nurse Practitioner Acute Care; Admitting Provider Internal Medicine Adolescent Medicine; Emergency Provider Student in an Organized Health Care Education/Training Program; PCP Nurse Practitioner Family; Visit Provider Internal Medicine Adolescent Medicine
DX: J18.9 Pneumonia, unspecified organism (principal); J96.01 Acute respiratory failure with hypoxia; E87.1 Hypo-osmolality and hyponatremia; E46 Unspecified protein-calorie malnutrition; J44.0 Chronic obstructive pulmonary disease with (acute) lower respiratory infection; E83.42 Hypomagnesemia; F41.9 Anxiety disorder, unspecified; M81.0 Age-related osteoporosis without current pathological fracture; I10 Essential (primary) hypertension; Z71.6 Tobacco abuse counseling; F17.210 Nicotine dependence, cigarettes, uncomplicated; R06.9 Unspecified abnormalities of breathing; Z20.822 Contact with and (suspected) exposure to COVID-19
CPT/HCPCS: G0378; 36415; 71046; 80048; 80053; 81001; 82570; 83605; 83735; 83880; 84145; 84300; 85007; 85025; 86140; 87040; 87070; 87205; 94640; 94760; 94761; 99285; C9803; J0456; J0696; J3475; U0003; U0005

== ENCOUNTER → 2022-04-18 11:02 | Outpatient (CLI) | payer MEDICARE, MEDICAID, SELFPAY ==
[2022-04-18 11:25] LABS: Basophils % 0.2 % (0.1-2.0); Eosinophils # 0.2 K/mm3 (0.0-0.4); Eosinophils % 1.4 % (0.1-12.0); Hematocrit 39.9 % (37.0-47.0); Lymphocytes # 0.6 K/mm3 (0.7-4.5); Lymphocytes % 4.4 % (10-50); Mean Corpuscular HGB Conc 32.6 g/dL (31.8-35.4); Mean Corpuscular Hemoglobin 31.9 pg (27.0-31.2); Mean Corpuscular Volume 97.8 fl (81-99); Mean Platelet Volume 8.9 fl (7.4-10.4); Monocytes # 0.3 K/mm3 (0.1-1.0); Monocytes % 2.4 % (1.7-9.3); Neutrophils # 11.6 K/mm3 (1.8-7.8); Neutrophils % 91.7 % (37.0-80.0); Platelet Count 509 K/mm3 (142-424); Red Blood Count 4.07 M/mm3 (4.20-5.40); Red Cell Distribution Width 12.8 % (11.5-17.5); White Blood Count 12.6 K/mm3 (4.8-10.8)
[2022-04-18 11:27] LABS: MANUAL DIFFERENTIAL MANUAL DIFFERENTIAL (MANUAL DIFF)
[2022-04-18 11:30] LABS: Chloride 87 mmol/L (98-107); Sodium 127 mmol/L (136-145)
[2022-04-18 11:31] LABS: Potassium 5.4 mmoL/L (3.5-5.1)
[2022-04-18 11:33] LABS: Alanine Aminotransferase 41 U/L (12-78); Albumin Level 3.4 g/dl (3.5-5.0); Albumin/Globulin Ratio 0.9 (1.1-1.8); Alkaline Phosphatase 97 U/L (38-126); Anion Gap 8.4 mEq/L (5-15); Aspartate Amino Transferase 62 U/L (14-36); Bilirubin,Total 0.5 mg/dl (0.2-1.3); Blood Urea Nitrogen 10 mg/dl (7-17); Calcium 8.6 mg/dl (8.4-10.2); Carbon Dioxide 37 mmol/L (22.0-30.0); Estimated Glomerular Filt Rate 121 ml/min (>60); GFR (African American) 146 ML/MIN (>60); Globulin 3.9 g/dL (1.3-3.2); Glucose 128 mg/dl (74-100); Total Protein,Serum 7.3 g/dl (6.3-8.2)
[2022-04-18 11:34] LABS: Magnesium 1.9 mg/dl (1.6-2.3)
[2022-04-18 11:36] LABS: Lymphocytes % 4 % (10-50); Monocytes % 3 % (2-9); Neutrophils % 93 % (42-76); Platelet Estimate Slight Increase; RBC Morphology Normal; Total Cells Counted 100
[2022-04-18 11:51] LABS: T4 (Thyroxine) 9.4 ug/dl (5.53-11.0)
[2022-04-18 12:05] LABS: Thyroid Stimulating Hormone 1.56 uIU/mL (0.465-4.68)
--- NOTE | 2022-04-18 14:21 | EXP.EVENT.NO ---
Reviewed patient's labs. Sodium essentially stable at 127 (126 on discharge). White cell count improving. Patient feeling better per conversation when I called with her results today. 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 Patient states understanding.
== END ==
PROVIDERS: PCP Nurse Practitioner Family; Visit Provider Internal Medicine Adolescent Medicine
DX: E87.1 Hypo-osmolality and hyponatremia (principal)
CPT/HCPCS: 36415; 80053; 83735; 84436; 84443; 85007; 85025

== ENCOUNTER 2022-07-31 01:22 | Inpatient (IN) | payer MEDICARE, MEDICAID, SELFPAY ==
[2022-07-31] VITALS (22 sets, daily range): BP systolic 107–153; BP diastolic 55–79; PULSE 75–96; RESP 16–20; TEMP 36.3–37.3; O2SAT 89–98; BMI 16.2; BMI 15.5
--- NOTE | 2022-07-31 01:26 | XR_ITS ---
PROCEDURE INFORMATION: Exam: XR Chest Exam date and time: 07/31/2022 1:53 AM Age: 76 years old Clinical indication: Injury or trauma; Fall TECHNIQUE: Imaging protocol: Radiologic exam of the chest. Views: 1 view. COMPARISON: CR XR CHEST 2V 04/13/2022 11:44 AM FINDINGS: Lungs: No consolidation, mass, or pulmonary edema. Pleural spaces: No obvious pneumothorax or pleural effusion. Heart/Mediastinum: Stable mild cardiomegaly. Bones/joints: No acute fracture. Partially seen are postoperative changes from prior right proximal humeral ORIF. IMPRESSION: No acute findings.
--- NOTE | 2022-07-31 01:26 | CT_ITS ---
PROCEDURE INFORMATION: Exam: CT Cervical Spine Without Contrast Exam date and time: 07/31/2022 1:53 AM Age: 76 years old Clinical indication: Injury or trauma; Fall TECHNIQUE: Imaging protocol: Computed tomography of the cervical spine without contrast. Radiation optimization: All CT scans at this facility use at least one of these dose optimization techniques: automated exposure control; mA and/or kV adjustment per patient size (includes targeted exams where dose is matched to clinical indication); or iterative reconstruction. REPORTING DATA: Count of CT and Cardiac NM exams in prior 12 months: This patient has received 0 known CTs and 0 known cardiac nuclear medicine studies in the 12 months prior to the current study. COMPARISON: [facility] CT cervical spine wo con 09/21/2017 2:27 PM FINDINGS: Bones/joints: Postsurgical changes in the mandible on the right. No acute fracture. Facets are normally aligned. Increase in the normal cervical lordosis. Paranasal sinuses: Air-fluid level in the left maxillary sinus. Lungs: Centrilobular emphysematous changes in the lung apices. Soft tissues: No acute findings. IMPRESSION: 1. No acute findings in the cervical spine. 2. Air-fluid level in left maxillary sinus. 3. Emphysema.
--- NOTE | 2022-07-31 01:26 | CT_ITS ---
PROCEDURE INFORMATION: Exam: CT Head Without Contrast Exam date and time: 07/31/2022 1:51 AM Age: 76 years old Clinical indication: Injury or trauma; Fall TECHNIQUE: Imaging protocol: Computed tomography of the head without contrast. Radiation optimization: All CT scans at this facility use at least one of these dose optimization techniques: automated exposure control; mA and/or kV adjustment per patient size (includes targeted exams where dose is matched to clinical indication); or iterative reconstruction. REPORTING DATA: Count of CT and Cardiac NM exams in prior 12 months: This patient has received 0 known CTs and 0 known cardiac nuclear medicine studies in the 12 months prior to the current study. COMPARISON: [facility] CT head/brain wo con 09/21/2017 1:38 PM FINDINGS: Brain: No mass effect or midline shift. No intracranial hemorrhage. No intracranial edema. No evidence of acute territorial ischemia. Remote lacunar infarcts in the bilateral basal ganglia. There is marked diffuse heterogeneity of the white matter attenuation, consistent with severe chronic white matter microvascular ischemic changes. Cerebral ventricles: No ventriculomegaly. Paranasal sinuses: Air-fluid level in the left maxillary sinus. Mastoid air cells: No significant mastoid effusion. Bones/joints: No acute fracture. Postsurgical changes in the right side of the mandible. Soft tissues: No acute findings. IMPRESSION: Motion artifact does moderately limit the sensitivity of this examination. No acute intracranial findings. Air-fluid level in the left maxillary sinus. Other chronic changes as described.
--- NOTE | 2022-07-31 01:26 | XR_ITS ---
PROCEDURE INFORMATION: Exam: XR Right Femur Exam date and time: 07/31/2022 1:53 AM Age: 76 years old Clinical indication: Injury or trauma; Fall TECHNIQUE: Imaging protocol: Radiologic exam of the right femur. Views: 2 views. COMPARISON: 1. CT HIP RT WO CON 07/31/2022 1:56 AM 2. CR XR HIP RT 2-3V W/PELVIS 07/31/2022 2:46 AM FINDINGS: Bones/joints: Acute, comminuted intertrochanteric fracture of right proximal femur. No evidence of dislocation. Distal femur appears intact. Soft tissues: Unremarkable. IMPRESSION: Acute, comminuted intertrochanteric fracture of right proximal femur.
--- NOTE | 2022-07-31 01:26 | XR_ITS ---
PROCEDURE INFORMATION: Exam: XR Pelvis Exam date and time: 07/31/2022 1:53 AM Age: 76 years old Clinical indication: Injury or trauma; Fall TECHNIQUE: Imaging protocol: Radiologic exam of the pelvis. Views: 1 or 2 view. COMPARISON: No relevant prior studies available. FINDINGS: Bones/joints: Acute comminuted right intertrochanteric femoral fracture with varus angulation. No other fracture or dislocation identified. Soft tissues: Unremarkable. IMPRESSION: Acute comminuted right intertrochanteric femoral fracture with varus angulation.
--- NOTE | 2022-07-31 01:26 | XR_ITS ---
PROCEDURE INFORMATION: Exam: XR Right Tibia and Fibula Exam date and time: 07/31/2022 1:53 AM Age: 76 years old Clinical indication: Injury or trauma; Fall TECHNIQUE: Imaging protocol: Radiologic exam of the right tibia and fibula. Views: 2 views. COMPARISON: No relevant prior studies available. FINDINGS: Limitations: Proximal end of the right tibia is clipped from the image on the lateral view. Distal ends of the tibia and fibula are clipped from the image on the AP view, as are the lateral tibial plateau and proximal fibula. Bones/joints: No acute fracture or dislocation identified. Soft tissues: Normal. IMPRESSION: 1. Limited exam as noted above. 2. No acute fracture or dislocation identified.
--- NOTE | 2022-07-31 01:44 | CT_ITS ---
PROCEDURE INFORMATION: Exam: CT Right Lower Extremity Without Contrast, Hip Exam date and time: 07/31/2022 1:56 AM Age: 76 years old Clinical indication: Injury or trauma; Fall TECHNIQUE: Imaging protocol: CT of the right lower extremity without contrast was performed. Exam focused on the hip. Radiation optimization: All CT scans at this facility use at least one of these dose optimization techniques: automated exposure control; mA and/or kV adjustment per patient size (includes targeted exams where dose is matched to clinical indication); or iterative reconstruction. REPORTING DATA: Count of CT and Cardiac NM exams in prior 12 months: This patient has received 0 known CTs and 0 known cardiac nuclear medicine studies in the 12 months prior to the current study. COMPARISON: CR XR FEMUR RT 2V 07/31/2022 1:53 AM FINDINGS: Bones/joints: Acute comminuted intertrochanteric right proximal femoral fracture with varus angulation. No other fracture identified. No dislocation of the right hip. No lytic lesion or evidence of an underlying osseous lesion. Soft tissues: Mild enlargement and heterogeneity of the distal right iliopsoas muscle, likely intramuscular hematoma. IMPRESSION: 1. Acute comminuted intertrochanteric right proximal femoral fracture with varus angulation. 2. Mild enlargement and heterogeneity of the distal right iliopsoas muscle, likely intramuscular hematoma.
--- NOTE | 2022-07-31 02:10 | ECG_ITS ---
APPROVED REPORT Exam: Resting ECG HR:88 bpm ECG Measurements Heart Rate 88 AXES WI 158 P 82 QRSd 157 QRS 39 QT 434 T 74 QTc 480 Conclusion SINUS RHYTHM INDETERMINATE AXIS RIGHT BUNDLE BRANCH BLOCK [120+ ms QRS DURATION, UPRIGHT V1, 40+ ms S IN I/aVL/V4/V5/V6] ABNORMAL ECG UNCONFIRMED REPORT Electronically signed by : Judd Gibson MD 08/01/2022 08:06:23
--- NOTE | 2022-07-31 02:18 | PC.NURSE ---
Pt had bowel movement. Pt cleaned up and catheter placed per Rosenda Tsai RN.
[2022-07-31 02:19] LABS: Coronavirus 19, PCR Not Detected (NotDetected); Influenza A, PCR Not Detected (NotDetected); Influenza B, PCR Not Detected (NotDetected)
--- NOTE | 2022-07-31 02:23 | PC.NURSE ---
Pt son at
--- NOTE | 2022-07-31 02:27 | HMH.EDFALL ---
Discharge Plan Disposition Patient Disposition: Admitted As Inpatient Chief Complaint: Fall Prescriptions Prescriptions: No Action albuterol sulfate 2.5 mg /3 mL (0.083 %) solution for nebulization 2.5 mg inhalation Q4HP PRN (Reason: Wheezing) Label Comments: INHALE THE CONTENTS OF 1 VIAL VIA NEBULIZER EVERY 4 TO 6 HOURS NEEDED FOR WHEEZING alendronate 70 mg tablet 70 mg PO WEEKLY Label Comments: TAKE 1 TABLET BY MOUTH ONCE WEEKLY ON THE SAME DAY EACH WEEK buspirone 10 MG tablet 10 mg PO BID Label Comments: take 1 tablet by mouth twice a day omeprazole 20 MG capsule,delayed release(DR/EC) 20 mg PO DAILY Label Comments: TAKE 1 CAPSULE BY MOUTH EVERY MORNING BEFORE BREAKFAST. PATIENT T...(REFER TO PRESCRIPTION NOTES). Spiriva with HandiHaler 1 PUFF capsule, w/inhalation device 1 puff inhalation DAILY chlorthalidone 25 mg tablet 25 mg PO DAILY Label Comments: TAKE 1 TABLET BY MOUTH ONCE DAILY lisinopril 20 mg tablet 40 mg PO DAILY sodium chloride 1,000 mg tablet,soluble 1,000 mg PO DAILY Referrals Follow up/Referrals: Aarti French [Referring] - See instructions Clinical Impressions Clinical Impression: Closed hip fracture, COPD (chronic obstructive pulmonary disease), Hyponatremia Discharge ED Provider: Gerhard (ED)Torres Fall HPI General Chief Complaint: Fall Stated Complaint: fall Time Seen by Provider: 07/31/22 02:27 Mode of Arrival: EMS Source of Information: Patient, EMS and Medical Record Limitations: No Limitations Description of Symptoms (Recalled from ER Triage Doc. by RN): pt states was getting out of bed and fell. pt c/o lt leg pain History of Present Illness HPI Narrative: fell at home getting oob and injured rt hip MD complaint: fall Onset (ago): hour(s) Fall from: out of bed Fall witnessed: no Place fall occurred: home Loss of consciousness: none Prolonged down time: no Symptoms prior to fall: none Context: tripped/slipped Location of injury - extremities: Right: thigh Severity: moderate Associated symptoms (after fall): denies Related Data Home Medications Medication Instructions Recorded Confirmed buspirone 10 mg tablet 10 mg PO BID Anxiety 09/21/17 07/31/22 omeprazole 20 mg capsule,delayed 20 mg PO DAILY GERD 09/21/17 07/31/22 release tiotropium bromide 18 mcg capsule 1 puff inhalation DAILY Breathing 09/21/17 07/31/22 with inhalation device (Spiriva problems with HandiHaler) albuterol sulfate 2.5 mg/3 mL 2.5 mg inhalation Q4HP PRN Wheezing 04/13/22 07/31/22 (0.083 %) solution for nebulization alendronate 70 mg tablet 70 mg PO WEEKLY Osteoporosis 04/13/22 07/31/22 chlorthalidone 25 mg tablet 25 mg PO DAILY High blood pressure 07/31/22 07/31/22 lisinopril 20 mg tablet 40 mg PO DAILY High blood pressure 07/31/22 07/31/22 sodium chloride 1,000 mg soluble 1,000 mg PO DAILY Supplement 07/31/22 07/31/22 tablet Allergies Allergy/AdvReac Type Severity Reaction Status Date / Time No Known Allergies Allergy Verified 04/06/22 11:07 [facility] Disclaimer: The information contained in this section may have been updated after the patient was seen, as this information can be updated by other users. Medical History Anxiety Cataract GERD (gastroesophageal reflux disease) Osteoporosis Surgical History H/O right wrist surgery Family History Hyperlipidemia Heart attack Hypertension Social History Smoking Status: Current every day smoker tobacco type: cigarettes alcohol intake: never current occupational status: retired Travel in the last 8 weeks: None household members: family housing: house ROS Obtained: Yes All systems reviewed & no additional complaints except
[2022-07-31 02:29] LABS: Basophils % 0.3 % (0.1-2.0); Eosinophils # 0.2 K/mm3 (0.0-0.4); Eosinophils % 1.3 % (0.1-12.0); Lymphocytes # 1.1 K/mm3 (0.7-4.5); Mean Corpuscular HGB Conc 33.3 g/dL (31.8-35.4); Mean Corpuscular Hemoglobin 31.9 pg (27.0-31.2); Mean Corpuscular Volume 95.9 fl (81-99); Mean Platelet Volume 8.3 fl (7.4-10.4); Monocytes # 0.7 K/mm3 (0.1-1.0); Monocytes % 5.3 % (1.7-9.3); Neutrophils # 11.2 K/mm3 (1.8-7.8); Neutrophils % 85.1 % (37.0-80.0); Platelet Count 242 K/mm3 (142-424); Red Blood Count 3.76 M/mm3 (4.20-5.40); Red Cell Distribution Width 12.9 % (11.5-17.5); White Blood Count 13.1 K/mm3 (4.8-10.8)
--- NOTE | 2022-07-31 02:29 | XR_ITS ---
PROCEDURE INFORMATION: Exam: XR Right Hip Exam date and time: 07/31/2022 2:46 AM Age: 76 years old Clinical indication: Injury or trauma; Fall TECHNIQUE: Imaging protocol: Radiologic exam of the right hip. Views: 2 or 3 views hip with pelvis when performed. COMPARISON: CT HIP RT WO CON 07/31/2022 1:56 AM FINDINGS: Bones/joints: Acute, comminuted intertrochanteric right proximal femur fracture with varus angulation. No evidence of hip dislocation. Soft tissues: Unremarkable. IMPRESSION: Acute, comminuted intertrochanteric right proximal femur fracture with varus angulation.
--- NOTE | 2022-07-31 02:30 | PC.NURSE ---
Pt provided with warm blanket and pillow
--- NOTE | 2022-07-31 02:31 | PC.NURSE ---
RAD at BS for hip XRAY
[2022-07-31 02:35] LABS: Appearance,Urine SL CLOUDY (Clear); Bilirubin,Urine Negative (Negative); Blood, Urine Negative (Negative); Color,Urine YELLOW (Yellow); Glucose,Urine (UA) Negative (Negative); Ketones,Urine Negative (Negative); Leukocyte Esterase,Urine Negative (Negative); Microscopic, Urine URINE MICROSCOPIC (MICROSCOPIC); Nitrate,Urine Negative (Negative); PH,Urine 7.5 (5.0-8.5); Protein,Urine TRACE (Negative)
[2022-07-31 02:36] LABS: Amorphous Sediment,Urine Trace /lpf; Bacteria,Urine 2+ /lpf; Squamous Epithelial Cell,Urine Occasional #/hpf (0-5); WBC,Urine Occasional #/hpf (0-3)
[2022-07-31 02:37] LABS: MANUAL DIFFERENTIAL MANUAL DIFFERENTIAL (MANUAL DIFF)
[2022-07-31 02:44] LABS: Chloride 81 mmol/L (98-107); Potassium 3.3 mmoL/L (3.5-5.1); Sodium 125 mmol/L (136-145)
[2022-07-31 02:47] LABS: Alanine Aminotransferase 25 U/L (12-78); Albumin Level 3.7 g/dl (3.5-5.0); Albumin/Globulin Ratio 1.2 (1.1-1.8); Alkaline Phosphatase 77 U/L (38-126); Anion Gap 12.3 mEq/L (5-15); Aspartate Amino Transferase 42 U/L (14-36); Bilirubin,Total 0.3 mg/dl (0.2-1.3); Blood Urea Nitrogen 15 mg/dl (7-17); Carbon Dioxide 35 mmol/L (22.0-30.0); Creatinine Clearance Estimated 34 mL/min (50-200); Estimated Glomerular Filt Rate 98 ml/min (>60); GFR (African American) 118 ML/MIN (>60); Globulin 3.2 g/dL (1.3-3.2); Total Protein,Serum 6.9 g/dl (6.3-8.2)
[2022-07-31 02:48] LABS: Calcium 8.7 mg/dl (8.4-10.2); Glucose 121 mg/dl (74-100)
[2022-07-31 02:54] LABS: Lymphocytes % 11 % (10-50); Monocytes % 1 % (2-9); Neutrophils % 88 % (42-76); Platelet Estimate Normal; Total Cells Counted 100
[2022-07-31 02:55] LABS: RBC Morphology Normal
--- NOTE | 2022-07-31 03:53 | PC.NURSE ---
ed hancock is chatting with [employer] in regards to read times.
--- NOTE | 2022-07-31 04:11 | PC.NURSE ---
Paging Dr. Hannah, on-call for othopedics
--- NOTE | 2022-07-31 04:12 | PC.NURSE ---
Dr. Hennessy s/w Dr. Hannah
--- NOTE | 2022-07-31 04:14 | PC.NURSE ---
Dr Hannah agrees to accept pt as a consult. Dr Hennessy s/w hospitalist for admission.
--- NOTE | 2022-07-31 04:17 | PC.NURSE ---
House notified for bed assignment
--- NOTE | 2022-07-31 04:21 | PC.NURSE ---
PATIENT ADMITTED TO [address] JENKINS WITH DX OF RIGHT HIP FX.
--- NOTE | 2022-07-31 04:43 | PC.NURSE ---
Additional contact heber Summers, [phone]
--- NOTE | 2022-07-31 05:03 | PC.NURSE ---
Admission to 2nd floor will be delayed d/t MD Abebe will be down to see her @ 6am . building custodial supervisor is aware with delay
--- NOTE | 2022-07-31 06:15 | PC.NURSE ---
spoke with hospitalist to notified still awaiting admission orders
--- NOTE | 2022-07-31 06:35 | PC.NURSE ---
Pt's son called for an update and to check if we had a surgery time . Updated him on pt's POC and no surgical time as of this time but that would be up to the the orthopedic provider. He reports he will be here to visit with pt shortly.
--- NOTE | 2022-07-31 06:36 | EXP.HP ---
History of Present Illness *Admission Date: 07/31/22 *Reason for visit:: Right hip fracture *History of present illness: This is a 76-year-old female who presents to [facility] emergency department with concerns of right hip pain. Her past medical history significant for osteoporosis, COPD, ongoing tobacco dependence, hypertension and hyponatremia on thiazide diuretic therapy. She reports that she got up to use the bathroom last night and tripped and fell. She immediately experienced right hip pain. It is characterized as sharp and piercing. It is constant and exacerbated by movement. She reports the pain is rated as greater than 9 on a 1-10 pain scale. She had difficulty standing and mobilizing. She presented to the ED for evaluation. In the ED imaging identified a right hip fracture. Orthopedic surgery (Dr. Hannah) was consulted out of the ED. [facility] Medical History Anxiety Cataract COPD (chronic obstructive pulmonary disease) GERD (gastroesophageal reflux disease) Hypertension Osteoporosis Stroke Tobacco dependence in remission Surgical History (Updated 07/31/22 @ 07:51 by Karyna Gonzales RN) H/O right wrist surgery History of mandibular surgery Family History Hyperlipidemia Heart attack Hypertension Social History Smoking Status: Current every day smoker tobacco type: cigarettes alcohol intake: never current occupational status: retired Travel in the last 8 weeks: None household members: family housing: house marital status: number of children: 4 Review of Systems Review of Systems Review of systems:: pertinent systems reviewed and negative unless documented below Constitutional Constitutional: Reports weakness *Cardiovascular Cardiovascular: Denies chest pain, Denies chest pain at rest, Denies dyspnea and Denies palpitations *Respiratory Respiratory: Denies dyspnea *Musculoskeletal Musculoskeletal: Reports as per HPI *Neurologic Neurologic: Reports weakness Endocrine Endocrine: Denies palpitations Meds Home Medications and Allergies Home Medications Medication Instructions Recorded Confirmed Type buspirone 10 mg tablet 10 mg PO BID Anxiety 09/21/17 07/31/22 History omeprazole 20 mg capsule,delayed 20 mg PO DAILY Acid reflux 09/21/17 07/31/22 History release tiotropium bromide 18 mcg capsule 1 puff inhalation DAILY Breathing 09/21/17 07/31/22 History with inhalation device (Spiriva problems with HandiHaler) albuterol sulfate 2.5 mg/3 mL 2.5 mg inhalation Q4HP PRN Wheezing 04/13/22 07/31/22 History (0.083 %) solution for nebulization alendronate 70 mg tablet 70 mg PO WEEKLY Osteoporosis 04/13/22 07/31/22 History chlorthalidone 25 mg tablet 25 mg PO DAILY Fluid 07/31/22 07/31/22 History lisinopril 40 mg tablet 40 mg PO DAILY Hypertension 07/31/22 07/31/22 History sodium chloride 1,000 mg soluble 1,000 mg PO DAILY Supplement 07/31/22 07/31/22 History tablet New Prescriptions to Start Prescriptions: Allergies Allergy/AdvReac Type Severity Reaction Status Date / Time No Known Allergies Allergy Verified 04/06/22 11:07 Exam Data for Last 24 hours Vital signs and Labs for Last 24 Hours: Temp Pulse Resp BP Pulse Ox 97.4 F L 78 16 108/59 L 96 07/31/22 01:22 07/31/22 04:30 07/31/22 01:22 07/31/22 04:30 07/31/22 04:30 Laboratory Results - last 24 hr 07/31/22 02:13: Urine Color Yellow, Urine Appearance Sl cloudy, Urine pH 7.5, Ur Specific [place] 1.020, Urine Protein Trace, Urine Glucose (UA) Negative, Urine Ketones Negative, Urine Blood Negative, Urine Nitrate Negative, Urine Bilirubin Negative, Urine Urobilinogen 1.0, Ur Leukocyte Esterase Negative, Urine RBC None, Urine WBC Occasional, Ur Squamous Epith Cells Occasional, Amorphous Sediment Trace, Urine Bacteria 2+ 07/19
--- NOTE | 2022-07-31 06:56 | PC.NURSE ---
PT. ARRIVED TO FLOOR AT THIS TIME.
--- NOTE | 2022-07-31 08:01 | PC.NURSE ---
pt admitted to the floor under hospitalist care with consult for ortho. pt reports she was attempting to go to get back from the bathroom when she became dizzy, diaphoretic and fell. She states she blacked out and this is not the first time this has happened. She is alert and oriented. appropriate and a good historian for the most part. She reports generalized weakness and weight loss after a spell of PNA. 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 reports taking all medication yesterday morning except her weekly med which she takes on Sundays. pts pulses are strong and palpable in R leg. reports increased pain with movement. denies any nausea but pt did have one episode of diarrhea this am. scattered bruising noted but bottom is c/d/i
[2022-07-31 08:06] LABS: INR 0.95 (0.9-1.1); Prothrombin Time 10.3 seconds (10.1-12.5)
--- NOTE | 2022-07-31 08:51 | HMH.PHAINT1 ---
Pharmacy Intervention Comments: MEDICATION RECONCILIATION COMPLETED ON PATIENT USING EXTERNAL FILL HISTORY FROM PHARMACY. -JOE ALFRED, FARHAND
[2022-07-31 11:25] LABS: Adenovirus F 40/41, stool Not Detected (NotDetected); Astrovirus Not Detected (NotDetected); Campylobacter Not Detected (NotDetected); Clostridium Difficile A/B, PCR Not Detected (NotDetected); Cryptosporidium Not Detected (NotDetected); Cyclospora Cayetanesis Not Detected (NotDetected); Entamoeba histolytica Not Detected (NotDetected); Enteroaggregative E coli Not Detected (NotDetected); Enteropathogenic E coli Not Detected (NotDetected); Enterotoxigenic E coli Not Detected (NotDetected); Giardia lamblia Not Detected (NotDetected); Norovirus Not Detected (NotDetected); Plesimonas Shigalloides, PCR Not Detected (NotDetected); Rotavirus A Not Detected (NotDetected); Salmonella, PCR Not Detected (NotDetected); Sapovirus Not Detected (NotDetected); Shiga-like toxin E coli Not Detected (NotDetected); Shigella Enterovasive E coli Not Detected (NotDetected); Vibrio Cholerae Not Detected (NotDetected); Vibrio, PCR Not Detected (NotDetected); Yersinia Entercolitica, PCR Not Detected (NotDetected)
--- NOTE | 2022-07-31 11:31 | PC.NURSE ---
pt noted to have multiple loose stools. diarrhea panel sent
--- NOTE | 2022-07-31 14:56 | EXP.ORTH.CON ---
History of Present Illness *Admission Date: 07/31/22 *History of present illness: This is a 76-year-old female who presents to [facility] emergency department with concerns of right hip pain. Her past medical history significant for osteoporosis, COPD, ongoing tobacco dependence, hypertension and hyponatremia on thiazide diuretic therapy. She reports that she got up to use the bathroom last night and tripped and fell. She immediately experienced right hip pain. It is characterized as sharp and piercing. It is constant and exacerbated by movement. She reports the pain is rated as greater than 9 on a 1-10 pain scale. She had difficulty standing and mobilizing. She presented to the ED for evaluation. In the ED imaging identified a right hip fracture. Orthopedic surgery consulted for treatment. [facility] Disclaimer: The information contained in this section may have been updated after the patient was seen, as this information can be updated by other users. Medical History Anxiety Cataract COPD (chronic obstructive pulmonary disease) GERD (gastroesophageal reflux disease) Hypertension Osteoporosis Stroke Tobacco dependence in remission Surgical History H/O right wrist surgery History of mandibular surgery Family History Other Heart attack Hyperlipidemia Hypertension Social History Smoking Status: Current every day smoker tobacco type: cigarettes alcohol intake: never current occupational status: retired Travel in the last 8 weeks: None household members: family housing: house marital status: number of children: 4 Review of Systems Constitutional Constitutional: Reports weakness *Musculoskeletal Musculoskeletal: Reports as per HPI and Reports limited range of motion *Neurologic Neurologic: Reports weakness Meds Home Medications and Allergies Home Medications Medication Instructions Recorded Confirmed Type buspirone 10 mg tablet 10 mg PO BID Anxiety 09/21/17 07/31/22 History omeprazole 20 mg capsule,delayed 20 mg PO DAILY Acid reflux 09/21/17 07/31/22 History release tiotropium bromide 18 mcg capsule 1 puff inhalation DAILY Breathing 09/21/17 07/31/22 History with inhalation device (Spiriva problems with HandiHaler) albuterol sulfate 2.5 mg/3 mL 2.5 mg inhalation Q4HP PRN Wheezing 04/13/22 07/31/22 History (0.083 %) solution for nebulization alendronate 70 mg tablet 70 mg PO WEEKLY Osteoporosis 04/13/22 07/31/22 History chlorthalidone 25 mg tablet 25 mg PO DAILY Fluid 07/31/22 07/31/22 History lisinopril 40 mg tablet 40 mg PO DAILY Hypertension 07/31/22 07/31/22 History sodium chloride 1,000 mg soluble 1,000 mg PO DAILY Supplement 07/31/22 07/31/22 History tablet New Prescriptions to Start Prescriptions: Allergies Allergy/AdvReac Type Severity Reaction Status Date / Time No Known Allergies Allergy Verified 04/06/22 11:07 Ortho Exam (Inpt) Vital signs and Labs for Last 24 Hours: Temp Pulse Resp BP Pulse Ox 98.6 F 96 H 18 153/62 H 96 07/31/22 12:00 07/31/22 12:00 07/31/22 12:00 07/31/22 12:00 07/31/22 12:00 Laboratory Results - last 24 hr 07/31/22 02:13: Urine Color Yellow, Urine Appearance Sl cloudy, Urine pH 7.5, Ur Specific [place] 1.020, Urine Protein Trace, Urine Glucose (UA) Negative, Urine Ketones Negative, Urine Blood Negative, Urine Nitrate Negative, Urine Bilirubin Negative, Urine Urobilinogen 1.0, Ur Leukocyte Esterase Negative, Urine RBC None, Urine WBC Occasional, Ur Squamous Epith Cells Occasional, Amorphous Sediment Trace, Urine Bacteria 2+ 07/31/22 02:15: SARS-CoV-2 (PCR) Not detected, Influenza A Untype (PCR) Not detected, Influenza Type B (PCR) Not detected 07/31/22 02:23: WBC 13.1 H, RBC 3.
--- NOTE | 2022-07-31 16:44 | PC.NURSE ---
DIARRHEA RESULTS REVIEWED NOTHING DETECTED. INCENTIVE SPIROMETER SUPPLIED R/T INCREASE IN ORAL TEMP AND USE O2 SUPPORT. PT HAS NOT C/O PAIN SINCE THIS RN ASSUMED CARE. COMFORT PROMOTED. NO NEEDS VOICED.
[2022-08-01] VITALS (26 sets, daily range): BP systolic 129–157; BP diastolic 57–82; PULSE 70–100; RESP 16–20; TEMP 36.1–43; O2SAT 92–97; BMI 16.0
--- NOTE | 2022-08-01 05:08 | PC.NURSE ---
PATIENT IS A/O X 4. PRE-OP CHECK LIST REVIEWED. HAS HAD A QUIET NIGHT. MEDICATED ONCE THIS SHIFT FOR RIGHT LEG PAIN. HAS DENTURES IN HER MOUTH AND WILL REMOVE WHEN TIME. WOULD LIKE TO KEEP RING ON AND TAPED IN PLACE IF POSSIBLE.
[2022-08-01 07:20] LABS: Basophils % 0.3 % (0.1-2.0); Eosinophils % 0.3 % (0.1-12.0); Hematocrit 32.8 % (37.0-47.0); Lymphocytes # 0.9 K/mm3 (0.7-4.5); Lymphocytes % 11.5 % (10-50); Mean Corpuscular HGB Conc 33.6 g/dL (31.8-35.4); Mean Corpuscular Hemoglobin 32.2 pg (27.0-31.2); Mean Platelet Volume 9.2 fl (7.4-10.4); Monocytes # 0.6 K/mm3 (0.1-1.0); Monocytes % 7.1 % (1.7-9.3); Neutrophils # 6.3 K/mm3 (1.8-7.8); Neutrophils % 80.8 % (37.0-80.0); Platelet Count 202 K/mm3 (142-424); Red Blood Count 3.42 M/mm3 (4.20-5.40); White Blood Count 7.8 K/mm3 (4.8-10.8)
[2022-08-01 07:22] LABS: Anion Gap 12.9 mEq/L (5-15); Blood Urea Nitrogen 7 mg/dl (7-17); Carbon Dioxide 33 mmol/L (22.0-30.0); Chloride 83 mmol/L (98-107); Creatinine Clearance Estimated 33 mL/min (50-200); Estimated Glomerular Filt Rate 121 ml/min (>60); GFR (African American) 146 ML/MIN (>60); Glucose 98 mg/dl (74-100); Sodium 126 mmol/L (136-145)
[2022-08-01 07:42] LABS: Potassium 2.9 mmoL/L (3.5-5.1)
--- NOTE | 2022-08-01 07:45 | PC.NURSE ---
pt off floor with surgery
--- NOTE | 2022-08-01 07:59 | P.PN_ITS ---
[facility] Disclaimer: The information contained in this section may have been updated after the patient was seen, as this information can be updated by other users. Medical History Anxiety Cataract COPD (chronic obstructive pulmonary disease) GERD (gastroesophageal reflux disease) Hypertension Osteoporosis Stroke Tobacco dependence in remission Surgical History H/O right wrist surgery History of mandibular surgery Family History Other Heart attack Hyperlipidemia Hypertension Social History Smoking Status: Current every day smoker tobacco type: cigarettes alcohol intake: never substance use type: denies use current occupational status: retired Travel in the last 8 weeks: None household members: family housing: house marital status: number of children: 4 [facility] Anesthesia Checklist Patient Identification Patient Identification: Arm Band Structural Data Admitted From: Home Planned Operative Procedure/s: Right Hip TFN Nailing Consent for Planned Operative Procedure(s) Verified: Yes Verified Documents: Surgical Consent and History and Physical NPO Status Verified Time NPO: 00:00 Additional verifications Anesthesia Reactions: No Airway Assessment C-Spine Mobility Assessed: Yes TMJ Mobility Assessed: Yes Dentition: Edentulous Neurological Assessment Level of Consciousness: Awake and Alert Anesthesia Plan Anesthesia Risk discussed: Yes Anesthesia Plan: Verified ASA Class: III Anesthesia Type: General Preoperative Comments Pre-Operative Comments: Preoperatively, K+ is 2.9, Na 126. Discussed these findings with Dr. Hugo and Dr. Hannah along with pt. Discussed risks of delaying case to correct imbalances vs treating and continuing with surgery. Plan is to give 40 mEq of Potassium PO preoperatively and pt will recieve IV Potassium runs postoperatively. All parties in agreeance.
[2022-08-01 08:27] LABS: Sodium, Urine 100 mmol/L (Not Estab.)
--- NOTE | 2022-08-01 09:43 | XR_ITS ---
PROCEDURE INFORMATION: Exam: XR Right Hip Exam date and time: 08/01/2022 9:30 AM Age: 76 years old Clinical indication: Injury or trauma; Fall; Fracture of pelvis & hip; Not specified; Neck of femur; Closed fracture; Injury details: Right his surgery images. Fluoro time 1.41; Additional info: RT hip in or TECHNIQUE: Imaging protocol: Radiologic exam of the right hip. Views: 2 or 3 views hip with pelvis when performed. COMPARISON: CR XR HIP RT 2-3V W/PELVIS 07/31/2022 2:46 AM FINDINGS: Bones/joints: Four intraoperative fluoroscopic images were submitted as were obtained during the surgical fixation of the previously described comminuted displaced intertrochanteric fracture. Soft tissues: Limited IMPRESSION: Four intraoperative fluoroscopic images were submitted as were obtained during the surgical fixation of the previously described comminuted displaced intertrochanteric fracture.
--- NOTE | 2022-08-01 10:05 | EXP.OP.NOTE ---
Date of procedure: 08/01/22 Pre-op Diagnosis:: Right intertrochanteric hip fracture Post-op Diagnosis:: Same Procedure performed:: Cephalomedullary nailing right proximal femur Surgeon:: William Hannah DO Financial Compliance Manager(s):: None DROP SHIPMENT CLERK:: Andrade Tran Anesthesia: GETJames Estimated blood loss (mL): 100 Operative findings:: Intertrochanteric hip fracture with high femoral neck angle Operative note:: Patient was identified preoperatively. Right hip marked with yes and my initials. Transported operative suite. Placed upon the fracture table. General anesthesia administered airway secured. Right hip was then prepped and draped in normal sterile fashion after traction from the fracture table was utilized to reduce the intertrochanteric hip fracture. Once prepped and draped final operative timeout performed to identify proper patient procedure and extremity. Everyone involved the case agreed. There were no counter indications beginning. She did receive preoperative antibiotics. Marking pen was used to make an planned incision 2 fingerbreadths above the tip of the greater trochanter. Skin knife was used incise through skin and the IT band. Palpation of the greater trochanter was performed and a guidewire tip was placed at the tip of the greater trochanter. Guidewire was then placed down across the fracture which was seen on the AP and lateral views on the C arm. Once guidewire was placed. The 130 degree short TFN Synthes cephalomedullary nail was selected and placed over the guidewire. X-ray was utilized to find proper placement for the depth of the nail. She had a very high femoral neck angle. Once the depth of the nail was confirmed to be in adequate position the triple guide was placed onto the nail marvin and the guidewire was placed through the femoral head neck. This is seen on the AP and lateral views. It was measured to a size 97. 95 and 100 links were available. 95 Link selected. Lateral cortex reamer was placed to breach the lateral cortex and the helical blade was impacted into place. The blade was then locked from the top of the nail. Tensions then brought distally where the distal static screw was placed in the bottom of the TFN through the guide. Pictures were taken AP and lateral views on x-ray and found to be in good alignment. Traction was decreased on the leg copious irrigation wound performed deep layers closed with 0 Vicryl subcutaneous with 2-0 Vicryl surgical clips in the skin for closure sterile dressing placed. Patient waken anesthesia taken recovery stable condition. Condition: stable Disposition: PACU Complications:: None apparent
--- NOTE | 2022-08-01 10:09 | EXP.ANES.I ---
[facility] Anesthesia Record Part I Anesthesia Record I Intake, IV Amount: 900 Estimated blood loss (mL): 50 Urine output (mL): 150 Blood Products used (#): none Blood Pressure: 148/68 SaO2: 96 Pulse Rate: 88 Respiratory Rate: 16 Temperature: 98.3 F Patient is:: Drowsy and Stable Stable to PACU at:: 10:05
--- NOTE | 2022-08-01 10:49 | SUR.PHASEI ---
ONE GRAM OF ANCEF ORDERED BY . ALVARO FINANCIAL SERVICES ASSOCIATE HUNG ANCEF AT 0813. RN MADE AWARE. RN MADE AWARE OF POTASSIUM AND SODIUM LAB LEVELS. MD AND FINANCIAL SERVICES ASSOCIATE MADE AWARE.
--- NOTE | 2022-08-01 11:45 | EXP.PN ---
Subjective *Date: 08/01/22 *Time: 11:45 Interval history: Date of service August 01, 2022 The patient is postop day right hip orthopedic procedure. She reports adequate pain control. Nursing staff report that she remains afebrile with stable vital signs and saturating appropriately on supplemental oxygen via nasal cannula. Her morning labs identify stability. Exam Data for Last 24 hours Vital signs and Labs for Last 24 Hours: Temp Pulse Resp BP Pulse Ox 98.0 F 92 H 20 137/82 92 L 08/01/22 10:35 08/01/22 10:35 08/01/22 10:35 08/01/22 10:35 08/01/22 10:35 Laboratory Results - last 24 hr 07/31/22 02:13: Urine Sodium 100 07/31/22 11:18: Stl Aeromonas (PCR) Not detected, Stl C. cayetanensis PCR Not detected, Stool Rotavirus (PCR) Not detected, Stl Adenov F 40/41 PCR Not detected, Stool Astrovirus (PCR) Not detected, Stool Campylobacter PCR Not detected, Stl C.difficile Tox PCR Not detected, Stool Cryptosporidium PCR Not detected, Stl E.coli Shiga Tox PCR Not detected, Stool E coli O157 PCR Not detected, Stl Enterotoxigenic E PCR Not detected, Stool EPEC (PCR) Not detected, Stool EAEC (PCR) Not detected, Stl E. histolytica PCR Not detected, Stool Giardia Lamblia PCR Not detected, Stool Salmonella PCR Not detected, Stool Sapovirus (PCR) Not detected, Stl P. shigelloides PCR Not detected, Stl Shigella/EIEC PCR Not detected, St Y.enterocolitica PCR Not detected, Stool Vibrio (PCR) Not detected, Stl Vibrio cholerae PCR Not detected, Stl Norovirus GI/GII PCR Not detected 08/01/22 06:42: WBC 7.8 D, RBC 3.42 L, Hgb 11.0 L, Hct 32.8 L, MCV 96.0, MCH 32.2 H, MCHC 33.6, RDW 13.0, Plt Count 202, MPV 9.2, Neut % (Auto) 80.8 H, Lymph % (Auto) 11.5, [place] % (Auto) 7.1, Eos % (Auto) 0.3, Baso % (Auto) 0.3, Neut # (Auto) 6.3, Lymph # (Auto) 0.9, [place] # (Auto) 0.6, Eos # (Auto) 0.0, Baso # (Auto) 0.0 08/01/22 06:42: Sodium 126 L, Potassium 2.9 L*, Chloride 83 L, Carbon Dioxide 33 H, Anion Gap 12.9, BUN 7 D, Creatinine 0.50 L, Estimated Creat Clear 33, Estimated GFR 121, Est GFR ( Amer) 146 D, Glucose 98, Calcium 8.0 L I & O for Last 24 hours: Intake & Output 07/29/22 07/30/22 07/31/22 08/01/22 23:59 23:59 23:59 23:59 Intake Total 600 / 720 1517 / 1517 Output Total 1100 / 1400 1600 / 1600 Balance -500 / -680 -83 / -83 Weight 41.078 kg 42.411 kg Microbiology Reports for the Last 24 Hours: Microbiology 07/31/22 02:13 Urine,Clean Catch Urine Culture - Preliminary NO GROWTH AFTER 24 HOURS Constitutional Constitutional: no acute distress, thin, chronically ill appearing and cooperative *Routine HEENT Exam Head: Present normocephalic Eye: Present EOMI and PERRL ENT: Present mucous membranes moist *Routine Neck Exam Neck: Present supple; Absent lymphadenopathy *Routine Respiratory Exam Respiratory: Present rhonchi, normal respiratory effort and symmetric chest movement *Routine Cardiovascular Exam Cardiovascular: Present RRR *Routine Abdominal Exam Abdominal: Present soft and normoactive bowel sounds; Absent tenderness *Routine Extremities Exam Extremities: Absent cyanosis, clubbing or edema Comments: Right hip with surgical dressing *Routine Skin Exam Skin: Present warm; Absent rash *Routine Neurological Exam Neurological: Present alert, oriented X3, vision grossly intact, hearing grossly intact and normal speech; Absent sensory deficit or motor deficit Routine Psychiatric Exam Psychiatric: Present normal affect, normal thought process, cooperative, good insight and good judgment Assessment and Plan *Assessment and plan (1) Closed right hip fracture: Status: Acute Category: Medical Code(s): S72.001A - Fracture of unspecified part of neck of right femur, initial encounter for closed fracture (2) Acute hypoxemic respiratory failure: Status: Acute Category: Medical Code(s): J96.01 - Acute respiratory failure with hypoxia (3) Hypertension:
[2022-08-02] VITALS (11 sets, daily range): BP systolic 119–148; BP diastolic 56–82; PULSE 70–107; RESP 16–20; TEMP 36.6–37.2; O2SAT 91–96; BMI 16.0; BMI 15.5
[2022-08-02 06:39] LABS: Basophils % 0.1 % (0.1-2.0); Eosinophils % 0.3 % (0.1-12.0); Hemoglobin 10.3 g/dL (12.2-16.2); Lymphocytes # 1.2 K/mm3 (0.7-4.5); Lymphocytes % 13.5 % (10-50); Mean Corpuscular HGB Conc 34.2 g/dL (31.8-35.4); Mean Corpuscular Hemoglobin 32.8 pg (27.0-31.2); Mean Corpuscular Volume 95.8 fl (81-99); Mean Platelet Volume 9.2 fl (7.4-10.4); Monocytes # 0.7 K/mm3 (0.1-1.0); Monocytes % 7.6 % (1.7-9.3); Neutrophils % 78.4 % (37.0-80.0); Platelet Count 192 K/mm3 (142-424); Red Blood Count 3.13 M/mm3 (4.20-5.40); White Blood Count 8.9 K/mm3 (4.8-10.8)
[2022-08-02 06:48] LABS: Anion Gap 8.5 mEq/L (5-15); Blood Urea Nitrogen 6 mg/dl (7-17); Calcium 7.7 mg/dl (8.4-10.2); Carbon Dioxide 35 mmol/L (22.0-30.0); Chloride 89 mmol/L (98-107); Creatinine Clearance Estimated 33 mL/min (50-200); Estimated Glomerular Filt Rate 156 ml/min (>60); GFR (African American) 189 ML/MIN (>60); Glucose 93 mg/dl (74-100); Potassium 3.5 mmoL/L (3.5-5.1); Sodium 129 mmol/L (136-145)
[2022-08-02 07:32] LABS: Magnesium 1.5 mg/dl (1.6-2.3)
--- NOTE | 2022-08-02 07:53 | EXP.ANES.II ---
[facility] Anesthesia Record Part II Anesthesia Record Part II Discharge Time: 10:35 Destination: Medical Surgical Department PACU nurse assessment reviewed?: Yes Patient Condition:: Good Anesthesia Complications:: None Swallowing reflex intact?: Yes Cyanosis?: No Blood Pressure: 137/82 Pulse Rate: 92 Temperature: 98 F Mental Status: Alert & Oriented Pain level:: 0 Nausea and/or vomitting:: None Intake, IV Amount: 0
--- NOTE | 2022-08-02 08:19 | SW/DCPLANNER ---
Addendum entered by Anh Champion 08/03/22 08:27: Patient will discharge to [facility] level of care today. Addendum entered by Anh Champion 08/02/22 14:32: Kennedy sargent/ [facility] stated that precert will be started on this patient today. Addendum entered by Anh Champion 08/02/22 09:59: Patient/family has expressed an interest in [facility]. PT/OT recommended SNF level of care at time of discharge. I will follow up with [facility] and [facility] at family request. Original Note: I spoke with patient and her family this AM regarding discharge plans. PT/OT will evaluate patient today. Patient stated that if she needs placement she would prefer to go to a [facility]. I will continue to follow up with patient and her family once PT/OT evaluates. Discharge date is unknown at this time.
--- NOTE | 2022-08-02 10:06 | P.PN_ITS ---
Subjective *Date: 08/02/22 *Time: 10:06 Interval history: Patient doing well this morning. Up to the chair. Pain in the hip controlled with medications. Ortho Exam (Inpt) Vital signs and Labs for Last 24 Hours: Temp Pulse Resp BP Pulse Ox 98 F 92 H 18 137/82 92 L 08/02/22 07:54 08/02/22 07:54 08/02/22 07:41 08/02/22 07:54 08/02/22 07:41 Laboratory Results - last 24 hr 08/02/22 05:54: WBC 8.9, RBC 3.13 L, Hgb 10.3 L, Hct 30.0 L, MCV 95.8, MCH 32.8 H, MCHC 34.2, RDW 13.0, Plt Count 192, MPV 9.2, Neut % (Auto) 78.4, Lymph % (Auto) 13.5, [place] % (Auto) 7.6, Eos % (Auto) 0.3, Baso % (Auto) 0.1, Neut # (Auto) 7.0, Lymph # (Auto) 1.2, [place] # (Auto) 0.7, Eos # (Auto) 0.0, Baso # (Auto) 0.0 08/02/22 05:54: Sodium 129 L, Potassium 3.5 D, Chloride 89 L, Carbon Dioxide 35 H, Anion Gap 8.5, BUN 6 L, Creatinine 0.40 L, Estimated Creat Clear 33, Estimated GFR 156, Est GFR ( Amer) 189 D, Glucose 93, Calcium 7.7 L 08/02/22 05:54: Magnesium 1.5 L I & O for Labs for Last 24 Hours: Intake & Output 07/30/22 07/31/22 08/01/22 08/02/22 23:59 23:59 23:59 23:59 Intake Total 600 / 720 3737 / 3737 360 / 360 Output Total 1100 / 1400 1600 / 1600 1100 / 1100 Balance -500 / -680 2137 / 2137 -740 / -740 Weight 90 lb 9 oz 93 lb 8 oz 91 lb 4.342 oz Microbiology Reports for the Last 24 Hours: Microbiology 07/31/22 02:13 Urine,Clean Catch Urine Culture - Final NO GROWTH AFTER 48 HOURS Additional findings:: Right hip: Dressing intact. No drainage. Assessment and Plan *Assessment and plan (1) Closed intertrochanteric fracture of right hip: Problem Comment: Status post cephalomedullary nail Status: Acute Category: Medical Code(s): S72.141A - Displaced intertrochanteric fracture of right femur, initial encounter for closed fracture Plan Patient is doing well this morning. Potassium is improved. Appropriate candidate for rehab. Stable for discharge to rehab once placement obtained.
--- NOTE | 2022-08-02 10:06 | HMH.OTEV ---
OT Inpatient Evaluation Rehab OT IP Evaluation Start: 08/02/22 07:48 Freq: ONCE Status: Active Protocol: Document 08/02/22 09:[facility] (Rec: 08/02/22 10:[address] [facility] [id number]) Rehab OT IP Assessment Subjective History Pt oriented x 3 on arrival. Pt agreeable to engage in therapy evaluation. Pt was admitted on 07/31/22 after a fall resultin gin a right hip fx. Pt required a Cephalomedullary nailing right proximal femur on 08/01/22. Prior to being in the hospital , pt lived at home with her , grandson, and grandson's girlfriend. Pt reports she was independent with all ADLs such as dressing , bathing, and showering. Pt claims she was able to complete IADL tasks as well such as cooking, cleaning, and laundry. Usually family would complete grocery shopping for her. She did not require any type of AE during functional transfer. Pt has a past medical history of: Anxiety Cataract COPD (chronic obstructive pulmonary disease) GERD (gastroesophageal reflux disease) Hypertension Osteoporosis Stroke Tobacco dependence in remission Subjective I know it's going to hurt. Objective Patient Orientation Person,Place,Birthday Upper Extremity Gross ROM WFL Bed Mobility bed mobility-scooting,bed mobility - supine/sit,bed mobility - rolling Assist Level Minimal x 1 (25% assist) Transfer Training Sit/Stand Transfer Assist Level Minimal x 1 (25% assist) Chair Transfer Ability Minimal x 1 (25% assist) Chair Transfer Technique Sit to/from Ambulatory Chair Transfer Assistive Devices Rolling Walker Rehab OT IP prob,goals,plan Problems Date of Evaluation:
--- NOTE | 2022-08-02 10:23 | HMH.PTEV ---
Physical Therapy Evaluation Rehab PT IP Evaluation Start: 08/01/22 10:09 Freq: ONCE Status: Active Protocol: Document 08/02/22 10:18 PHORNE (Rec: 08/02/22 10:23 PHORNE [id number]) Subjective/History History History 76 yowf adm to [facility] after ground level fall at home with resulting R hip fx, now S/P R femur IMN. She reports she is generally independent with all mobility at baseline without AD, she lives with family, and has a ramp to enter the home. Subjective Subjective She reports pain in the R hip as expected post-op. Rehab PT IP Eval Objective Appearance Patient Behavior Appropriate Patient Orientation Person,Place,Time Difficulty following instructions none Speech Pattern Clear Ambulation Patient Able to Ambulate Yes Ambulation Observation IP General Gait Pattern Observation Antalgic Gait Ambulation Distance (feet) 10 Ambulation Assistive Device Rolling Walker Ambulation Ability Contact Guard/Hand Hold Balance Ability to Arise Able, uses arms to help Sitting Balance Steady, safe Standing Balance Steady, wide stance Dynamic Sitting Balance Ability Good Dynamic Standing Balance Ability Fair Transfers Bed Transfer Ability Minimal x 1 (25% assist) Chair Transfer Ability Contact Guard/Hand Hold Sit to Stand Bed Transfer Ability Contact Guard/Hand Hold Sit to Stand Chair Transfer Ability Contact Guard/Hand Hold ROM All Extremities PT ROM Status WFL MMT All Extremities PT MMT WFL Abnormal MMT Grade R LE grossly 3/5 Rehab PT IP prob,goals,plan Problems Date of Evaluation: 08/02/22 PT IP Problems Bed Mobility,Transfers,Gait Rehab Potential Rehab Potential Good Equipment Needs Assistive Devices Rolling / Wheeled Walker Plan PT Intervention Plan Bed Mobility,Transfers,Gait, Therapeutic Exercise PT Plan Frequency BID Duration LOS Discharge Goals Bed Transfer Ability Contact Guard/Hand Hold Sit to Stand Chair Transfer Ability Supervision/Stand by Ambulation Assistive Device Rolling Walker Ambulation Distance (feet) 20 Discharge Plan PT Discharge Plan Pt is currently most appropriate for rehab placement once medically stable for d/c. If sh
--- NOTE | 2022-08-02 16:18 | EXP.ACUTE.PN ---
Subjective *Date: 08/02/22 *Time: 18:11 Interval history: Did well overnight. Stable on 1 L oxygen overnight. Only wears O2 at night at home. Denies any chest pain, shortness of breath, nausea, vomiting, diarrhea. Of note, last bowel movement the . Pain stable. Working with therapy over the weekend. Tolerating p.o. intake. Family at bedside Medical Exam Vital signs and Labs for Last 24 Hours: Vital Signs Temp Pulse Pulse Resp BP BP Pulse Ox 08/02/22 16:00 98.1 F 95 H 16 134/66 92 L 08/02/22 12:07 72 08/02/22 12:07 72 08/02/22 12:00 98.9 F 91 H 20 119/56 L 91 L 08/02/22 07:41 98.8 F 107 H 18 128/58 L 92 L 08/02/22 06:25 90 08/02/22 06:25 89 08/02/22 06:25 96 08/02/22 04:00 97.9 F 95 H 16 148/76 H 93 L 08/02/22 00:00 98 F 70 16 130/64 94 L 08/01/22 23:20 84 08/01/22 23:20 84 08/01/22 20:00 98.1 F 70 16 132/60 96 08/01/22 19:01 81 08/01/22 19:01 83 08/01/22 17:15 98.8 F 94 H 18 136/66 96 08/02/22 07:54 98 F 92 H 137/82 Intake and Output 08/02/22 08/02/22 08/02/22 07:59 15:59 23:59 Intake Total 240 / 600 240 / 600 120 / 600 Output Total 1100 / 1600 500 / 1600 Balance -860 / -1000 240 / -1000 -380 / -1000 Intake: Intake, Oral Amount 240 / 600 240 / 600 120 / 600 Intake, Total IV Amount 0 / 0 Output: Output, Urine Amount 1100 / 1600 500 / 1600 Other: Number of Unmeasured Voids 1 0 Weight 42.411 kg 41.4 kg Patient Weight 08/02/22 23:59 Weight 41.4 kg Laboratory Results - last 24 hr 08/01/22 06:42: Cortisol 17.4 08/02/22 05:54: WBC 8.9, RBC 3.13 L, Hgb 10.3 L, Hct 30.0 L, MCV 95.8, MCH 32.8 H, MCHC 34.2, RDW 13.0, Plt Count 192, MPV 9.2, Neut % (Auto) 78.4, Lymph % (Auto) 13.5, Wise % (Auto) 7.6, Eos % (Auto) 0.3, Baso % (Auto) 0.1, Neut # (Auto) 7.0, Lymph # (Auto) 1.2, Wise # (Auto) 0.7, Eos # (Auto) 0.0, Baso # (Auto) 0.0 08/02/22 05:54: Sodium 129 L, Potassium 3.5 D, Chloride 89 L, Carbon Dioxide 35 H, Anion Gap 8.5, BUN 6 L, Creatinine 0.40 L, Estimated Creat Clear 33, Estimated GFR 156, Est GFR ( Amer) 189 D, Glucose 93, Calcium 7.7 L 08/02/22 05:54: Magnesium 1.5 L I & O for Labs for Last 24 Hours: Intake & Output 07/30/22 07/31/22 08/01/22 08/02/22 23:59 23:59 23:59 23:59 Intake Total 600 / 720 3737 / 3737 600 / 600 Output Total 1100 / 1400 1600 / 1600 1600 / 1600 Balance -500 / -680 2137 / 2137 -1000 / -1000 Weight 41.078 kg 42.411 kg 41.4 kg Microbiology Reports for the Last 24 Hours: Microbiology 07/31/22 02:13 Urine,Clean Catch Urine Culture - Final NO GROWTH AFTER 48 HOURS Constitutional: Present no acute distress, thin and chronically ill appearing Head: Present atraumatic and normocephalic ENT: Present normal exam Comment:: Bitemporal wasting Neck: Present normal inspection Respiratory: Present normal respiratory effort; Absent rhonchi, wheezes or crackles Cardiac: Present Reg Rate and Rhythm GI: Present soft; Absent distention or tenderness Extremities: Present normal inspection; Absent tenderness Comment:: Bandage clean dry and intact over right hip. Skin: Present intact; Absent cyanosis or erythema Neuro: Present alert, awake, oriented x 3 and moves all extremities Assessment and Plan *Assessment and plan (1) Closed right hip fracture: Status: Acute Category: Medical Code(s): S72.001A - Fracture of unspecified part of neck of right femur, initial encounter for closed fracture (2) Acute hypoxemic respiratory failure: Status: Acute Category: Medical Code(s): J96.01 - Acute respiratory failure with hypoxia (3) Hypertension: Status: Acute Category: Medical Code(s): I10 - Essential (primary) hypertension (4) Protein calorie malnutrition: Status: Acute Category: Medical Code(s): E46 - Un
--- NOTE | 2022-08-02 18:18 | EXP.DC.SUM ---
General Admission date:: 07/31/22 Discharge date: 08/03/22 HPI HPI HPI: This is a 76-year-old female who presents to [facility] emergency department with concerns of right hip pain. Her past medical history significant for osteoporosis, COPD, ongoing tobacco dependence, hypertension and hyponatremia on thiazide diuretic therapy. She reports that she got up to use the bathroom last night and tripped and fell. She immediately experienced right hip pain. It is characterized as sharp and piercing. It is constant and exacerbated by movement. She reports the pain is rated as greater than 9 on a 1-10 pain scale. She had difficulty standing and mobilizing. She presented to the ED for evaluation. In the ED imaging identified a right hip fracture. Orthopedic surgery consulted for treatment. Hospital Course Hospital Course Hospital Course: This is a 76-year-old female that presented to [facility] ED with concerns of right hip pain after fall and identified with closed right hip fracture.? Patient stable for transfer to nursing facility, awaiting acceptance by rehab.? Problems addressed are as follows: Closed right hip fracture Osteoporosis Orthopedic consulted, appreciate their assistance in care.? Status post surgery 08/01 with cephalomedullary nailing. Tolerated procedure well. Continue with hydrocodone 5 mg as needed for pain. Controlled well during hospitalization. Continue bowel regimen with docusate senna daily. Continue aspirin 81 mg twice daily for DVT prophylaxis. Follow-up with orthopedics in Nocturnal Hypoxia COPD Tobacco dependence ongoing?(>45 yrs 1 PPD) Continue supplemental oxygen as needed, wears 1 to 2 L at home at night. Continue inhalers as per bribed. Initiated on nicotine replacement therapy. Continue nursing facility, 21 mg patch daily Hypertension Routine blood pressure monitoring. Currently controlled on decreased regimen. Hyponatremia Likely secondary to home thiazide diuretic use. Sodium improved with fluid resuscitation. Continue daily sodium supplementation per home regimen. Repeat labs in 1 to 2 weeks to monitor sodium level. Protein calorie malnutrition (severe)/BMI 16 Pulmonary emphysema with cachexia on exam (pink puffer). Regular diet with supplements Medically stable for discharge to nursing facility for continued rehab. Patient's goal is to get home in the coming weeks. Exam Data for Last 24 hours Vital signs and Labs for Last 24 Hours: Temp Pulse Resp BP Pulse Ox 98.1 F 101 H 16 134/66 92 L 08/02/22 16:00 08/02/22 17:46 08/02/22 16:00 08/02/22 16:00 08/02/22 16:00 Laboratory Results - last 24 hr 08/01/22 06:42: Cortisol 17.4 08/02/22 05:54: WBC 8.9, RBC 3.13 L, Hgb 10.3 L, Hct 30.0 L, MCV 95.8, MCH 32.8 H, MCHC 34.2, RDW 13.0, Plt Count 192, MPV 9.2, Neut % (Auto) 78.4, Lymph % (Auto) 13.5, Laurel % (Auto) 7.6, Eos % (Auto) 0.3, Baso % (Auto) 0.1, Neut # (Auto) 7.0, Lymph # (Auto) 1.2, Laurel # (Auto) 0.7, Eos # (Auto) 0.0, Baso # (Auto) 0.0 08/02/22 05:54: Sodium 129 L, Potassium 3.5 D, Chloride 89 L, Carbon Dioxide 35 H, Anion Gap 8.5, BUN 6 L, Creatinine 0.40 L, Estimated Creat Clear 33, Estimated GFR 156, Est GFR ( Amer) 189 D, Glucose 93, Calcium 7.7 L 08/02/22 05:54: Magnesium 1.5 L I & O for Last 24 hours: Intake & Output 07/30/22 07/31/22 08/01/22 08/02/22 23:59 23:59 23:59 23:59 Intake Total 600 / 720 3737 / 3737 720 / 720 Output Total 1100 / 1400 1600 / 1600 1600 / 1600 Balance -500 / -680 2137 / 2137 -880 / -880 Weight 41.078 kg 42.411 kg 41.4 kg Microbiology Reports for the Last 24 Hours: Microbiology 07/31/22 02:13 Urine,Clean Catch Urine Culture - Final NO GROWTH AFTER 48 HOURS Constitutional Constitutional: no acute distress, thin, chronically ill appearing and cooperative *Routine HEENT Exam Head: Present normocephalic Eye: Present EOMI and PERRL ENT: Present muco
[2022-08-03] VITALS: BP 141/65; PULSE 93; RESP 18; TEMP 37.1
[2022-08-03 04:00] VITALS: BP 154/80; PULSE 78; RESP 18; TEMP 36.7; O2SAT 95; BMI 16.7
[2022-08-03 06:00] VITALS: PULSE 84; O2SAT 92
[2022-08-03 06:00] LABS: Basophils % 0.3 % (0.1-2.0); Eosinophils # 0.1 K/mm3 (0.0-0.4); Eosinophils % 1.1 % (0.1-12.0); Hematocrit 30.4 % (37.0-47.0); Hemoglobin 10.3 g/dL (12.2-16.2); Lymphocytes # 1.3 K/mm3 (0.7-4.5); Lymphocytes % 12.9 % (10-50); Mean Corpuscular HGB Conc 33.9 g/dL (31.8-35.4); Mean Corpuscular Hemoglobin 32.9 pg (27.0-31.2); Mean Corpuscular Volume 96.9 fl (81-99); Mean Platelet Volume 8.8 fl (7.4-10.4); Monocytes # 0.5 K/mm3 (0.1-1.0); Monocytes % 5.5 % (1.7-9.3); Neutrophils # 7.8 K/mm3 (1.8-7.8); Neutrophils % 80.2 % (37.0-80.0); Platelet Count 202 K/mm3 (142-424); Red Blood Count 3.13 M/mm3 (4.20-5.40); White Blood Count 9.7 K/mm3 (4.8-10.8)
[2022-08-03 06:10] LABS: Anion Gap 8.6 mEq/L (5-15); Blood Urea Nitrogen 8 mg/dl (7-17); Calcium 7.8 mg/dl (8.4-10.2); Carbon Dioxide 37 mmol/L (22.0-30.0); Chloride 88 mmol/L (98-107); Creatinine Clearance Estimated 35 mL/min (50-200); Estimated Glomerular Filt Rate 156 ml/min (>60); GFR (African American) 189 ML/MIN (>60); Glucose 98 mg/dl (74-100); Magnesium 1.7 mg/dl (1.6-2.3); Potassium 3.6 mmoL/L (3.5-5.1); Sodium 130 mmol/L (136-145)
[2022-08-03 07:58] VITALS: O2SAT 1
[2022-08-03 08:00] VITALS: BP 97/62; PULSE 110; RESP 16; TEMP 36.6; O2SAT 1; O2SAT 92
--- NOTE | 2022-08-03 09:39 | PC.NURSE ---
Called report to [facility], spoke to RUDDY Ibrahim. Ambulance scheduled.
--- NOTE | 2022-08-04 12:57 | CARE MANAGER ---
Spoke with nurse at [facility]. patient is doing well and they deny any questions or concerns. RUDDY Boswell
[2022-08-06 16:14] LABS: Osmolality, Urine 511 mOsmol/kg (.)
== END 2022-08-03 10:30 | DRG 480 ==
LOC: ER 04:19 → 2ND 04:34
PROVIDERS: Internal Medicine Adolescent Medicine; Orthopaedic Surgery; Admitting Provider Family Medicine; Emergency Provider Emergency Medicine; PCP Nurse Practitioner Family; Visit Provider Family Medicine
PROC: 0QS636Z Reposition Right Upper Femur with Intramedullary Internal Fixation Device, Percutaneous Approach (ICD-10-PCS; CPT 27245; principal; 2022-08-01 08:00)
DX: S72.141A Displaced intertrochanteric fracture of right femur, initial encounter for closed fracture (principal); E43 Unspecified severe protein-calorie malnutrition; J96.01 Acute respiratory failure with hypoxia; E87.1 Hypo-osmolality and hyponatremia; Z68.1 Body mass index [BMI] 19.9 or less, adult; I10 Essential (primary) hypertension; J43.9 Emphysema, unspecified; F41.9 Anxiety disorder, unspecified; F17.210 Nicotine dependence, cigarettes, uncomplicated; W01.0XXA Fall on same level from slipping, tripping and stumbling without subsequent striking against object, initial encounter; Z79.899 Other long term (current) drug therapy
CPT/HCPCS: 27245; 36415; 51702; 70450; 71045; 72125; 72170; 73502; 73552; 73590; 73700; 76000; 80048; 80053; 81001; 82533; 83735; 83930; 83935; 84300; 85007; 85025; 85610; 87086; 87507; 87636; 93005; 94640; 94760; 97162; 97166; 97530; 99285; C1713; C1769; C1776; C9803; J2405; J3475; U0003; U0005

== ENCOUNTER → 2022-08-17 07:16 | Outpatient (CLI) | payer MEDICARE, SELFPAY | PROVIDERS: PCP Nurse Practitioner Family; Visit Provider Orthopaedic Surgery | DX: S72.91XA Unspecified fracture of right femur, initial encounter for closed fracture (principal) ==

== ENCOUNTER → 2022-08-17 07:42 | Outpatient (CLI) | payer MEDICARE, SELFPAY ==
--- NOTE | 2022-08-17 07:45 | CT_ITS ---
FINAL REPORT CLINICAL HISTORY: rt hip fx COMPARISON: July 31, 2022 FINDINGS: CT RIGHT HIP WITHOUT CONTRAST Technique: Axial images through the right hip were performed by computed tomography. Sagittal and coronal reconstruction images were performed. This study was performed with techniques to keep radiation doses as low as reasonably achievable (ALARA). Individualized dose reduction techniques using automated exposure control or adjustment of mA and/or kV according to the patient's size were employed. There is an intramedullary padmini and compression screw present. The compression screw extends through the superior femoral neck and terminates in the anterior acetabulum rather than the femoral head. There is a comminuted fracture of the anterior acetabulum. There is a fracture through the femoral neck. There are multiple bony fragments at the margin of the fracture. The femoral diaphysis is more posteriorly located relative to the femoral neck than on the pre instrumentation images. There are overlying skin madeline. IMPRESSION: Interval postoperative change with a compression screw extending into the anterior acetabulum. Change in alignment in the fracture fragments as described. Reviewed, Interpreted and Dictated by Rubén Adam MD Transcribed by Killian Ramirez Authenticated and [facility]
== END ==
PROVIDERS: PCP Orthopaedic Surgery; Visit Provider Orthopaedic Surgery
DX: S72.141A Displaced intertrochanteric fracture of right femur, initial encounter for closed fracture (principal); M25.551 Pain in right hip
CPT/HCPCS: 73700

== ENCOUNTER 2022-08-23 19:15 | Inpatient (IN) | payer MEDICARE, SELFPAY ==
[2022-08-23] VITALS (21 sets, daily range): BP systolic 87–141; BP diastolic 38–69; PULSE 75–89; RESP 14–18; TEMP 36.3–43; O2SAT 93–99; BMI 14.4
--- NOTE | 2022-08-23 | XR_ITS ---
FINAL REPORT CLINICAL HISTORY: HIP IN OR FT 0.1 min FINDINGS: FLUORO TIME PROCEDURE: Fluoroscopy in the operating room. FINDINGS: Fluoroscopy time was provided by the radiology department for the clinical service. One film was obtained for right hip surgery. Fluoroscopy exposure time: 0.1 minutes IMPRESSION: See above Reviewed, Interpreted and Dictated by Malena Pang MD Transcribed by Lisy Kauffman Authenticated and [facility]
[2022-08-23 13:20] LABS: Coronavirus 19, PCR Not Detected (NotDetected); Influenza A, PCR Not Detected (NotDetected); Influenza B, PCR Not Detected (NotDetected)
--- NOTE | 2022-08-23 14:06 | EXP.ANES.CKL ---
[facility] Disclaimer: The information contained in this section may have been updated after the patient was seen, as this information can be updated by other users. Medical History Anxiety Cataract Cerebral infarction Closed hip fracture Closed right hip fracture COPD (chronic obstructive pulmonary disease) COPD (chronic obstructive pulmonary disease) Emphysema of lung [place] GERD (gastroesophageal reflux disease) Hypertension Malnutrition Osteoporosis Tobacco dependence in remission Surgical History H/O right wrist surgery History of mandibular surgery Family History Other Heart attack Hyperlipidemia Hypertension Social History (Updated 08/23/22 @ 11:36 by Preeti Rosenbaum RN) Smoking Status: Current every day smoker tobacco type: cigarettes alcohol intake: never substance use type: denies use current occupational status: retired Travel in the last 8 weeks: None household members: family housing: house marital status: number of children: 4 [facility] Anesthesia Checklist Patient Identification Patient Identification: Arm Band Structural Data Admitted From: Home Planned Operative Procedure/s: Right Hip Hardware Removal, Hemiarthroplasty Consent for Planned Operative Procedure(s) Verified: Yes Verified Documents: Surgical Consent and History and Physical NPO Status Verified Time NPO: 00:00 Additional verifications Anesthesia Reactions: No Hx Blood Transfusions: No Airway Assessment C-Spine Mobility Assessed: Yes TMJ Mobility Assessed: Yes Dentition: Dentures-good fit (removed) Neurological Assessment Level of Consciousness: Awake and Alert Anesthesia Plan Anesthesia Risk discussed: Yes Anesthesia Plan: Verified ASA Class: IV Anesthesia Type: MAC w/Spinal Preoperative Comments Pre-Operative Comments: Discussed at length the anesthesia plan with pt and family. Discussed SAB and risks/benefits along with conversion to GA if procedure outlasts spinal. Discussed high risk of procedure for pt d/t comorbidities, specifically her lung disease. Pt and family both verbalized understanding.
--- NOTE | 2022-08-23 16:15 | SUR.OPER ---
Family updated at this time
--- NOTE | 2022-08-23 17:51 | EXP.OP.NOTE ---
Date of procedure: 08/23/22 Pre-op Diagnosis:: Failed fixation right cephalomedullary nailing for intertrochanteric hip fracture Post-op Diagnosis:: Same Procedure performed:: 1. Removal of implants deep cephalomedullary nail right proximal femur #2 conversion to distal fit hemiarthroplasty right hip Surgeon:: William Hannah DO POLYMERIZATION HELPER:: Andrade Tran Anesthesia: spinal Estimated blood loss (mL): 200 Operative findings:: Cut out of the helical blade for the cephalomedullary TFN Operative note:: Patient was identified preoperatively. Right hip was marked with yes and my initials. Transferred operative suite given spinal anesthesia. Then placed in a lateral position on the table with the hip holders in place. All bony prominences well-padded. Axillary roll placed. Right hip was then prepped and draped in normal sterile fashion. Once prepped and draped final operative timeout performed to identify proper patient procedure and extremity. Everyone involved the case agreed. No counter occasion beginning. Did receive preoperative antibiotics. Marking pen was used to make plan incision of the lateral aspect of the hip incorporating the previous incision for the cephalomedullary nail. Skin knife is used to incise through skin down to the IT band. IT band was cut in line with the femur. Then I dissected proximally and distally to identify the entry hole for the helical blade and the top of the nail. The locking mechanism for the helical blade was removed. Helical blade was then removed. Attention was brought distally where the distal screw was removed. And then placed the extraction device on the nail and remove the cephalomedullary nail without difficulty. She had a comminuted intertrochanteric fracture which involved a large trip greater trochanter piece lesser trochanter piece of soft tissue attachments were still in place and were care was taken to maintain this. Attention was then brought to the femoral head which was still within the acetabulum. It was taken out in a piecemeal fashion with the entire articular surface was removed and sized to a size 45. Copious irrigation of the cup was performed evaluation of the cup was performed. The greater trochanter fracture was maintained with a soft tissue envelope. Attention was then brought to the canal. Opening Ham reamer was used. Followed by the distal reamers that were marked from the Otf modular femoral revision set. The distal reamer reamed very well with maikel at a size 15. Size 15 modular stem 150 mm was selected and impacted into place at the level of the proposed greater trochanter at 50. Once this was complete the trial version size a 50 mm proximal body was selected and placed placed over the distal implant. 45 head bipolar -6 length was selected. The trial was then reduced and the hip was placed through range of motion and found to be stable slightly shortened. Therefore a -3 femoral head was selected and placed and gave good stability of the hip. Once trialing was complete the final implant size 50 size a proximal body was selected and placed in the proper version and setscrew was placed after its impaction of the taper. Once this was selected the final implant size 45-3 head was selected and impacted into place the hip was reduced taken through range of motion and found to be very stable Attention was then brought to reconstruction of the lesser and greater trochanter fragments. Cables were placed around the shaft to incorporate the lesser trochanter and the greater trochanter to reduce it in proper place 2 cables were placed that reduce the bone in good repair. Once this complete the hip was then taken through range of motion flexion extension internal/external rotation found to be very stable. C arm was brought into identify the final implants to be in good alignment. Copious irrigation of wound performed. Capsule closed with 0 Vicryl. The abductors were repaired wi
--- NOTE | 2022-08-23 17:55 | EXP.ANES.I ---
[facility] Anesthesia Record Part I Anesthesia Record I Intake, IV Amount: 1,600 Estimated blood loss (mL): 100 Urine output (mL): 250 Blood Products used (#): none Blood Pressure: 91/46 SaO2: 99 Pulse Rate: 89 Respiratory Rate: 16 Temperature: 97.8 F Patient is:: Drowsy and Stable Stable to PACU at:: 17:50
--- NOTE | 2022-08-23 19:29 | PC.NURSE ---
PT ARRIVED TO FLOOR AT THIS TIME
[2022-08-23 19:39] LABS: Microscopic,Cath URINE MICROSCOPIC (MICROSCOPIC)
[2022-08-23 20:09] LABS: Appearance,Urine/Cath SL CLOUDY (Clear); Bilirubin,Cath Negative (Negative); Blood, Urine/Cath Negative (Negative); Color,Urine/Cath YELLOW (Yellow); Glucose,Urine/Cath (UA) Negative (Negative); Ketones,Urine/Cath Negative (Negative); Leukocyte Esterase,Cath 1+ (Negative); Nitrate,Cath POSITIVE (Negative); PH,Urine/Cath 7.5 (5.0-8.5); Protein,Urine/Cath Negative (Negative)
[2022-08-23 20:19] LABS: Bacteria,Urine/Cath 4+ /lpf; WBC,Urine/Cath Occasional #/hpf (0-3)
--- NOTE | 2022-08-23 20:23 | EXP.HP ---
History of Present Illness *Admission Date: 08/23/22 *Reason for visit:: Undergo revision of right hip *History of present illness: Ms. Llamas is a 76-year-old female with a past medical history of COPD, home oxygen dependent, protein calorie malnutrition, chronic hyponatremia, BMI 14, Anxiety Disorder, GERD, HTN. She presents to [facility] to undergo a right cephalomedullary nailing for a failed fixation of the right hip. She was seen following her procedure, she denies any pain or any symptoms. Pre-operatively her COVID and Flu were negative. She had a urine culture 48 hours prior to the procedure that showed no growth. [facility] Disclaimer: The information contained in this section may have been updated after the patient was seen, as this information can be updated by other users. Medical History Anxiety Cataract Cerebral infarction Closed hip fracture Closed right hip fracture COPD (chronic obstructive pulmonary disease) COPD (chronic obstructive pulmonary disease) Emphysema of lung [place] GERD (gastroesophageal reflux disease) Hypertension Malnutrition Osteoporosis Tobacco dependence in remission Surgical History H/O right wrist surgery History of mandibular surgery Family History Other Heart attack Hyperlipidemia Hypertension Social History Smoking Status: Current every day smoker tobacco type: cigarettes alcohol intake: never substance use type: denies use current occupational status: retired Travel in the last 8 weeks: None household members: family housing: house marital status: number of children: 4 Review of Systems Review of Systems Review of systems:: pertinent systems reviewed and negative unless documented below Constitutional Constitutional: Reports system reviewed and no additional complaints, except as documented Eyes Eyes: Reports system reviewed and no additional complaints, except as documented ENT Ears, Nose, Mouth, and Throat: Reports system reviewed and no additional complaints, except as documented *Cardiovascular Cardiovascular: Reports system reviewed and no additional complaints, except as documented *Respiratory Respiratory: Reports system reviewed and no additional complaints, except as documented *Gastrointestinal Gastrointestinal: Reports system reviewed and no additional complaints, except as documented *Genitourinary Genitourinary: Reports system reviewed and no additional complaints, except as documented *Musculoskeletal Musculoskeletal: Reports system reviewed and no additional complaints, except as documented Integumentary/Breasts Skin/Breast: Reports system reviewed and no additional complaints, except as documented *Neurologic Neurologic: Reports system reviewed and no additional complaints, except as documented Psychiatric Psychiatric: Reports system reviewed and no additional complaints, except as documented Endocrine Endocrine: Reports system reviewed and no additional complaints, except as documented Hematologic/Lymphatic Hematologic/Lymphatic: Reports system reviewed and no additional complaints, except as documented Allergic/Immunologic Allergic/Immunologic: Reports system reviewed and no additional complaints, except as documented Meds Home Medications and Allergies Home Medications Medication Instructions Recorded Confirmed Type buspirone 10 mg tablet 10 mg PO BID Anxiety 09/21/17 08/20/22 History omeprazole 20 mg capsule,delayed 20 mg PO AM Acid reflux 09/21/17 08/24/22 History release tiotropium bromide 18 mcg capsule 1 puff inhalation DAILY Breathing 09/21/17 08/20/22 History with inhalation device (Spiriva problems with HandiHaler) albuterol sulfate 2.5 mg/3 mL 2.5 mg inhalation Q4-6H PRN 0
[2022-08-23 20:41] LABS: Chloride 88 mmol/L (98-107); Sodium 124 mmol/L (136-145)
[2022-08-23 20:44] LABS: Alanine Aminotransferase 24 U/L (12-78); Alkaline Phosphatase 123 U/L (38-126); Aspartate Amino Transferase 40 U/L (14-36); Bilirubin,Total 0.6 mg/dl (0.2-1.3); Blood Urea Nitrogen 17 mg/dl (7-17); Creatinine Clearance Estimated 30 mL/min (50-200); Estimated Glomerular Filt Rate 98 ml/min (>60); GFR (African American) 118 ML/MIN (>60)
[2022-08-23 20:45] LABS: Albumin Level 2.9 g/dl (3.5-5.0); Calcium 8.2 mg/dl (8.4-10.2); Carbon Dioxide 30 mmol/L (22.0-30.0); Globulin 2.9 g/dL (1.3-3.2); Glucose 149 mg/dl (74-100); Total Protein,Serum 5.8 g/dl (6.3-8.2)
[2022-08-23 20:48] LABS: Basophils % 0.3 % (0.1-2.0); Eosinophils # 0.2 K/mm3 (0.0-0.4); Eosinophils % 1.1 % (0.1-12.0); Hematocrit 30.2 % (37.0-47.0); Hemoglobin 9.9 g/dL (12.2-16.2); Lymphocytes # 0.8 K/mm3 (0.7-4.5); Lymphocytes % 4.5 % (10-50); Mean Corpuscular HGB Conc 32.7 g/dL (31.8-35.4); Mean Corpuscular Hemoglobin 31.8 pg (27.0-31.2); Mean Corpuscular Volume 97.2 fl (81-99); Mean Platelet Volume 7.2 fl (7.4-10.4); Monocytes # 0.7 K/mm3 (0.1-1.0); Monocytes % 4.3 % (1.7-9.3); Neutrophils # 15.3 K/mm3 (1.8-7.8); Neutrophils % 89.8 % (37.0-80.0); Platelet Count 367 K/mm3 (142-424); Red Blood Count 3.11 M/mm3 (4.20-5.40); Red Cell Distribution Width 12.9 % (11.5-17.5)
[2022-08-23 20:53] LABS: MANUAL DIFFERENTIAL MANUAL DIFFERENTIAL (MANUAL DIFF)
[2022-08-23 22:31] LABS: Lymphocytes % 5 % (10-50); Monocytes % 1 % (2-9); Neutrophils % 94 % (42-76); Platelet Estimate Normal; RBC Morphology Normal; Total Cells Counted 100
[2022-08-24] VITALS (11 sets, daily range): BP systolic 92–130; BP diastolic 46–64; PULSE 80–99; RESP 16–18; TEMP 36.6–37.2; O2SAT 92–97; BMI 14.3
[2022-08-24 06:22] LABS: Basophils # 0.1 K/mm3 (0-0.2); Basophils % 0.6 % (0.1-2.0); Eosinophils # 0.1 K/mm3 (0.0-0.4); Eosinophils % 1.6 % (0.1-12.0); Hematocrit 27.3 % (37.0-47.0); Lymphocytes % 11.6 % (10-50); Mean Corpuscular HGB Conc 33.1 g/dL (31.8-35.4); Mean Corpuscular Volume 96.7 fl (81-99); Mean Platelet Volume 7.9 fl (7.4-10.4); Monocytes # 0.7 K/mm3 (0.1-1.0); Monocytes % 7.9 % (1.7-9.3); Neutrophils # 6.8 K/mm3 (1.8-7.8); Neutrophils % 78.4 % (37.0-80.0); Platelet Count 299 K/mm3 (142-424); Red Blood Count 2.82 M/mm3 (4.20-5.40); Red Cell Distribution Width 12.8 % (11.5-17.5); White Blood Count 8.7 K/mm3 (4.8-10.8)
[2022-08-24 06:24] LABS: Chloride 88 mmol/L (98-107); Potassium 4.4 mmoL/L (3.5-5.1); Sodium 125 mmol/L (136-145)
[2022-08-24 06:27] LABS: Anion Gap 10.4 mEq/L (5-15); Blood Urea Nitrogen 22 mg/dl (7-17); Calcium 8.2 mg/dl (8.4-10.2); Carbon Dioxide 31 mmol/L (22.0-30.0); Creatinine Clearance Estimated 30 mL/min (50-200); Estimated Glomerular Filt Rate 82 ml/min (>60); GFR (African American) 99 ML/MIN (>60); Glucose 92 mg/dl (74-100)
--- NOTE | 2022-08-24 06:54 | PC.NURSE ---
Pt AOx4. Pt educated on how to use IS, pt best 1000cc. Pt dsg to right hip is CDI. Pt has c/o pain in right hip 3x t/o shift requiring PO PRN meds. Saenz in place draining clear yellow urine. Tolerating 2 L nc well with sats >90. Call light within reach.
--- NOTE | 2022-08-24 07:29 | HMH.PHAINT1 ---
Pharmacy Intervention Comments: Home medication list verified through external fill history from outside pharmacy and recent discharge med list.
--- NOTE | 2022-08-24 07:31 | DIET.NUTRFU ---
RD consulted to eval for PCM, patient does trigger for severe protein calorie malnutrition. She was just here 08/02 for hip sx, since that admit she has lost 8.8#, indicating lack of intake. Her BMI is 14, her mobility has changed based/secondary to increased pain. Ortho has reviewed a secondary procedure to help with pain. Last admit had started ensure with meals TID, will restart and recommend continuing fpc. Labs reviewed 125L Na, albumin is low at 2.9L. Will review POC with provider
--- NOTE | 2022-08-24 08:01 | SW/DCPLANNER ---
Addendum entered by Anh Champion 08/25/22 08:03: Ross sargent/ [place] patient has been approved via insurance to return SNF level of care today. I have updated MD. Addendum entered by Anh Champion 08/24/22 10:53: Alma [facility]argent/ [facility] is starting precert on this patient for possible discharge tomorrow. Original Note: Patient currently resides at [facility] level of care. I will continue to follow up with Alma at [facility] until patient is medically stable for discharge. Discharge date is unknown at this time.
--- NOTE | 2022-08-24 09:56 | HMH.OTEV ---
OT Inpatient Evaluation Rehab OT IP Evaluation Start: 08/24/22 08:02 Freq: ONCE Status: Active Protocol: Document 08/24/22 09:50 RMARSHALL (Rec: 08/24/22 09:55 RMARSHALL [id number]) Rehab OT IP Assessment Subjective History Pt oriented x 3 on arrival. Pt agreeable to engage in therapy evaluation. Pt was admitted on 08/23/22 to undergo revision of right hip. The following procedures were performed: 1. Removal of implants deep cephalomedullary nail right proximal femur 2 conversion to distal fit hemiarthroplasty right hip Prior to second surgery, pt was at [facility] for short term rehab. Pt was using a rolling walker during functional transfers. Pt required assistance with all ADLs and was depedent upon staff for completion of IADLS . pt has a past medical history of: Anxiety Cataract Cerebral infarction Closed hip fracture Closed right hip fracture COPD (chronic obstructive pulmonary disease) COPD (chronic obstructive pulmonary disease) Emphysema of lung [place] GERD (gastroesophageal reflux disease) Hypertension Malnutrition Osteoporosis Tobacco dependence in remission Subjective I will just need some help. Objective Patient Orientation Person,Place,Name Upper Extremity Gross ROM WNL Bed Mobility bed mobility-scooting,bed mobility - supine/sit Assist Level Moderate x 2 (50% assist) Transfer Training Sit/Stand Transfer Assist Level Minimal x 1 (25% assist) Chair Transfer Ability Contact Guard/Hand Hold,
--- NOTE | 2022-08-24 10:07 | EXP.ANES.II ---
[facility] Anesthesia Record Part II Anesthesia Record Part II Discharge Time: 19:10 Destination: Medical Surgical Department PACU nurse assessment reviewed?: Yes Patient Condition:: Good Anesthesia Complications:: None Swallowing reflex intact?: Yes Cyanosis?: No Blood Pressure: 106/58 Pulse Rate: 80 Temperature: 97.8 F Mental Status: Alert & Oriented Pain level:: 0 Nausea and/or vomitting:: None Intake, IV Amount: 0
--- NOTE | 2022-08-24 10:12 | HMH.PTEV ---
Physical Therapy Evaluation Rehab PT IP Evaluation Start: 08/23/22 18:05 Freq: ONCE Status: Active Protocol: Document 08/24/22 10:06 PHORKATHY (Rec: 08/24/22 10:11 PHORNE Desktop) Subjective/History History History 76 yowf adm to [facility] with failure of R hip fx to heal despite IMN, now S/P hardware removal with R hip BETHEA. She reports she was at [facility] for rehab prior to adm and plans to return there. She was able to ambulate short distances with assistance prior to adm and requires assist with all ADLs. Subjective Subjective She reports pain is well controlled at this time, agrees to mobility training. Rehab PT IP Eval Objective Appearance Patient Behavior Appropriate Patient Orientation Person,Place,Time Difficulty following instructions none Speech Pattern Clear Ambulation Patient Able to Ambulate Yes Ambulation Observation IP General Gait Pattern Observation Antalgic Gait,Shuffling Step, Decrease Weight Bear (R), Decrease Stride Lngth (R), Decrease Stride Lngth (L) Ambulation Distance (feet) 3 Ambulation Assistive Device Rolling Walker Ambulation Ability Minimal x 1 (25% assist) Balance Ability to Arise Able, uses arms to help Sitting Balance Steady, safe Standing Balance Unsteady Dynamic Sitting Balance Ability Good Dynamic Standing Balance Ability Fair Transfers Bed Transfer Ability Minimal x 1 (25% assist) Chair Transfer Ability Minimal x 1 (25% assist) Sit to Stand Bed Transfer Ability Minimal x 1 (25% assist) Sit to Stand Chair Transfer Ability Minimal x 1 (25% assist) ROM All Extremities PT ROM Status WFL MMT All Extremities PT MMT WFL Abnormal MMT Grade except R LE grossly 2/5 Rehab PT IP prob,goals,plan Problems Date of Evaluation: 08/24/22 PT IP Problems Bed Mobility,Transfers,Gait Rehab Potential Rehab Potential Good Plan PT Intervention Plan Bed Mobility,Transfers,Gait, Therapeutic Exercise PT Plan Frequency BID Duration LOS Discharge Goals Bed Transfer Ability Contact Guard/Hand Hold Sit to Stand Chair Transfer Ability Contact Guard/Hand Hold Ambulation Assistive Device
[2022-08-24 11:11] LABS: POC Glucose,Bedside 126 (70-110)
--- NOTE | 2022-08-24 12:14 | EXP.ORTH.PN ---
Subjective *Date: 08/24/22 *Time: 12:14 Interval history: Patient sitting up in the chair. Still sore from the surgery. But overall improved. Ortho Exam (Inpt) Vital signs and Labs for Last 24 Hours: Temp Pulse Resp BP Pulse Ox 98.9 F 86 16 92/64 L 96 08/24/22 10:43 08/24/22 10:43 08/24/22 10:43 08/24/22 10:43 08/24/22 10:43 Laboratory Results - last 24 hr 08/23/22 13:20: SARS-CoV-2 (PCR) Not detected, Influenza A Untype (PCR) Not detected, Influenza Type B (PCR) Not detected 08/23/22 14:00: Urine Color Yellow, Urine Appearance Sl cloudy, Urine pH 7.5, Ur Specific [place] 1.010, Urine Protein Negative, Urine Glucose (UA) Negative, Urine Ketones Negative, Urine Blood Negative, Urine Nitrate Positive, Urine Bilirubin Negative, Urine Urobilinogen 1.0, Ur Leukocyte Esterase 1+ A, Urine RBC None, Urine WBC Occasional, Ur Squamous Epith Cells None, Urine Bacteria 4+ A 08/23/22 20:30: WBC 17.0 H, RBC 3.11 L, Hgb 9.9 L, Hct 30.2 L, MCV 97.2, MCH 31.8 H, MCHC 32.7, RDW 12.9, Plt Count 367, MPV 7.2 L, Neut % (Auto) 89.8 H, Lymph % (Auto) 4.5 L, [place] % (Auto) 4.3, Eos % (Auto) 1.1, Baso % (Auto) 0.3, Neut # (Auto) 15.3 H, Lymph # (Auto) 0.8, [place] # (Auto) 0.7, Eos # (Auto) 0.2, Baso # (Auto) 0.0, Total Counted 100, Neutrophils % (Manual) 94 H, Lymphocytes % (Manual) 5 L, Monocytes % (Manual) 1 L, Platelet Estimate Normal, RBC Morphology Normal 08/23/22 20:30: Sodium 124 L, Potassium 4.0, Chloride 88 L, Carbon Dioxide 30, Anion Gap 10.0, BUN 17, Creatinine 0.60, Estimated Creat Clear 30, Estimated GFR 98, Est GFR ( Amer) 118, Glucose 149 H, Calcium 8.2 L, Total Bilirubin 0.6, AST 40 H, ALT 24, Alkaline Phosphatase 123, Total Protein 5.8 L, Albumin 2.9 L, Globulin 2.9, Albumin/Globulin Ratio 1.0 L 08/24/22 06:00: WBC 8.7 D, RBC 2.82 L, Hgb 9.0 L, Hct 27.3 L, MCV 96.7, MCH 32.0 H, MCHC 33.1, RDW 12.8, Plt Count 299, MPV 7.9, Neut % (Auto) 78.4, Lymph % (Auto) 11.6, [place] % (Auto) 7.9, Eos % (Auto) 1.6, Baso % (Auto) 0.6, Neut # (Auto) 6.8, Lymph # (Auto) 1.0, [place] # (Auto) 0.7, Eos # (Auto) 0.1, Baso # (Auto) 0.1 08/24/22 06:00: Sodium 125 L, Potassium 4.4, Chloride 88 L, Carbon Dioxide 31 H, Anion Gap 10.4, BUN 22 H D, Creatinine 0.70, Estimated Creat Clear 30, Estimated GFR 82, Est GFR ( Amer) 99, Glucose 92 D, Calcium 8.2 L 08/24/22 10:39: POC Glucose 126 H I & O for Labs for Last 24 Hours: Intake & Output 08/21/22 08/22/22 08/23/22 08/24/22 23:59 23:59 23:59 23:59 Intake Total 1600 / 1650 170 / 170 Output Total 0 / 0 400 / 400 Balance 1600 / 1650 -230 / -230 Weight 84 lb 83 lb 12.41 oz Additional findings:: Right hip: Dressings intact. No drainage. Assessment and Plan *Assessment and plan (1) Closed intertrochanteric fracture of right hip: Problem Comment: Status post cephalomedullary nail with hardware failure and cut out Status: Acute Category: Medical Code(s): S72.141A - Displaced intertrochanteric fracture of right femur, initial encounter for closed fracture Plan Patient is postoperative day #1 with removal of hardware and conversion to hemiarthroplasty right hip. She is up in the chair doing reasonly well. She has acute blood loss anemia secondary to surgery. Evaluation from PT reviewed. She is appropriate candidate for return to rehabilitation.
--- NOTE | 2022-08-24 15:19 | PC.NURSE ---
Pt. is aox 4, f/c in place, 02-2L NC with sats 90's, dressing to right hip c/d/i, she has gotten pain meds several times today, up in chair at the moment.
--- NOTE | 2022-08-24 20:00 | EXP.ACUTE.PN ---
Subjective *Date: 08/24/22 *Time: 15:00 Interval history: Patient remained stable today. Pain doing much better than before surgery. Tolerating baseline nasal cannula oxygen. Denies any chest pain or shortness of breath. Poor p.o. intake but does not feel very hungry. Seen by nutrition, meeting protein calorie malnutrition. Stable on 2 L. No bowel movement since surgery. Medical Exam Vital signs and Labs for Last 24 Hours: Vital Signs Temp Pulse Resp BP Pulse Ox 08/24/22 14:55 98.6 F 82 16 111/49 L 97 08/24/22 10:43 98.9 F 86 16 92/64 L 96 08/24/22 08:00 97 08/24/22 07:12 97.8 F 99 H 16 130/58 L 93 L 08/24/22 04:00 97.8 F 89 16 103/47 L 94 L 08/24/22 02:15 88 18 106/52 L 93 L 08/24/22 01:15 92 H 16 115/59 L 92 L 08/24/22 00:15 87 16 107/51 L 92 L 08/23/22 23:15 98.2 F 86 15 106/52 L 94 L 08/23/22 22:15 77 18 122/64 96 08/23/22 21:45 82 15 114/64 97 08/23/22 21:15 81 14 120/63 96 08/23/22 20:45 77 15 122/62 97 08/23/22 20:15 77 16 120/60 97 Intake and Output 08/24/22 08/24/22 08/24/22 07:59 15:59 23:59 Intake Total 170 / 460 170 / 460 120 / 460 Output Total 400 / 700 300 / 700 0 / 700 Balance -230 / -240 -130 / -240 120 / -240 Intake: Intake, Oral Amount 120 / 360 120 / 360 120 / 360 Intake, Total IV Amount 50 / 100 50 / 100 Cefazolin Sodium 1 gm In 0.9 % 50 / 100 50 / 100 Sodium Chloride 50 ml @ 100 mls /hr IV Q6H [facility] Rx#:[id number] Output: Output, Urine Amount 400 / 400 0 / 400 0 / 400 Output, Urine Amount (Catheter) 300 / 300 Saenz 300 / 300 Other: Number of Unmeasured Voids 0 0 0 Weight 38 kg Patient Weight 08/24/22 23:59 Weight 38 kg Laboratory Results - last 24 hr 08/23/22 14:00: Urine Color Yellow, Urine Appearance Sl cloudy, Urine pH 7.5, Ur Specific [place] 1.010, Urine Protein Negative, Urine Glucose (UA) Negative, Urine Ketones Negative, Urine Blood Negative, Urine Nitrate Positive, Urine Bilirubin Negative, Urine Urobilinogen 1.0, Ur Leukocyte Esterase 1+ A, Urine RBC None, Urine WBC Occasional, Ur Squamous Epith Cells None, Urine Bacteria 4+ A 08/23/22 20:30: WBC 17.0 H, RBC 3.11 L, Hgb 9.9 L, Hct 30.2 L, MCV 97.2, MCH 31.8 H, MCHC 32.7, RDW 12.9, Plt Count 367, MPV 7.2 L, Neut % (Auto) 89.8 H, Lymph % (Auto) 4.5 L, [place] % (Auto) 4.3, Eos % (Auto) 1.1, Baso % (Auto) 0.3, Neut # (Auto) 15.3 H, Lymph # (Auto) 0.8, [place] # (Auto) 0.7, Eos # (Auto) 0.2, Baso # (Auto) 0.0, Total Counted 100, Neutrophils % (Manual) 94 H, Lymphocytes % (Manual) 5 L, Monocytes % (Manual) 1 L, Platelet Estimate Normal, RBC Morphology Normal 08/23/22 20:30: Sodium 124 L, Potassium 4.0, Chloride 88 L, Carbon Dioxide 30, Anion Gap 10.0, BUN 17, Creatinine 0.60, Estimated Creat Clear 30, Estimated GFR 98, Est GFR ( Amer) 118, Glucose 149 H, Calcium 8.2 L, Total Bilirubin 0.6, AST 40 H, ALT 24, Alkaline Phosphatase 123, Total Protein 5.8 L, Albumin 2.9 L, Globulin 2.9, Albumin/Globulin Ratio 1.0 L 08/24/22 06:00: WBC 8.7 D, RBC 2.82 L, Hgb 9.0 L, Hct 27.3 L, MCV 96.7, MCH 32.0 H, MCHC 33.1, RDW 12.8, Plt Count 299, MPV 7.9, Neut % (Auto) 78.4, Lymph % (Auto) 11.6, [place] % (Auto) 7.9, Eos % (Auto) 1.6, Baso % (Auto) 0.6, Neut # (Auto) 6.8, Lymph # (Auto) 1.0, [place] # (Auto) 0.7, Eos # (Auto) 0.1, Baso # (Auto) 0.1 08/24/22 06:00: Sodium 125 L, Potassium 4.4, Chloride 88 L, Carbon Dioxide 31 H, Anion Gap 10.4, BUN 22 H D, Creatinine 0.70, Estimated Creat Clear 30, Estimated GFR 82, Est GFR ( Amer) 99, Glucose 92 D, Calcium 8.2 L 08/24/22 10:39: POC Glucose 126 H I & O for Labs for Last 24 Hours: Intake & Output 08/21/22 08/22/22 08/23/22 08/24/22 23:59 23:59 23:59 23:59 Intake Total 1600 / 1650 460 / 460 Output Total 0 / 0 700 / 700 Balance 1600 / 1650 -240 / -240 Weight 38.102 kg 38 kg Microbiology Reports for the Last 24 Hours: Microbiology 08/23/22 14:00 Urine,Catheterize
[2022-08-25] VITALS: BP 127/53; PULSE 93; RESP 18; TEMP 37.2; O2SAT 95
[2022-08-25 04:00] VITALS: BP 112/52; PULSE 91; RESP 18; TEMP 36.9; O2SAT 97; BMI 16.0
--- NOTE | 2022-08-25 04:38 | PC.NURSE ---
Pt has rested comfortably in bed. Saenz is still in place. Dressing is clean dry and intact. Patient is still on 2L NC.
[2022-08-25 07:18] VITALS: BP 122/62; PULSE 96; RESP 16; TEMP 37; O2SAT 96
[2022-08-25 08:00] VITALS: O2SAT 96
--- NOTE | 2022-08-25 08:19 | EXP.DC.SUM ---
General Admission date:: 08/23/22 Discharge date: 08/25/22 HPI HPI HPI: Ms. Llamas is a 76-year-old female with a past medical history of COPD, home oxygen dependent, protein calorie malnutrition, chronic hyponatremia, BMI 14, Anxiety Disorder, GERD, HTN. She presents to [facility] to undergo a right cephalomedullary nailing for a failed fixation of the right hip. She was seen following her procedure, she denies any pain or any symptoms. Pre-operatively her COVID and Flu were negative. She had a urine culture 48 hours prior to the procedure that showed no growth. Hospital Course Hospital Course Hospital Course: 76-year-old female with COPD, home oxygen dependent, chronic hyponatremia, protein calorie malnutrition and hypertension presents to undergo failed fixation of right cephalomedullary nailing for intertrochanteric hip fracture. Tolerated procedure well. Is remained stable during hospitalization. Repeat x-ray this morning on day of discharge showed stable placement of prosthesis. Patient stable for [facility]. Standard hip precautions recommended per orthopedics. Problems addressed as follows: - Failed fixation of fracture -Hemiarthroplasty Status post revision of previous hip surgery with subsequent fracture performed on 08/23. Patient tolerated the procedure well. Pain has been well controlled. Orthopedics has been following along and feels patient is stable for discharge. Standard hip precautions. Follow-up in 1 to 2 weeks with orthopedics for further management and reevaluation. We will continue with aspirin 81 mg daily for DVT prophylaxis. PT and OT evaluated and assisted with care during hospitalization. UTI -Patient found to have UTI on admission. Culture currently growing gram-negative rods. Started on ceftriaxone empirically. No fever or leukocytosis during admission. She grew Klebsiella back in March, will transition to cefdinir to complete 5 days of antibiotics. We will continue to follow cultures and call if there is any change in speciation or sensitivity. - Hyponatremia Reports chronic, continued home salt tabs - COPD Currently stable on home oxygen at 2L, Continue home Albuterol, Spiriva -Severe protein Calorie Malnutrition BMI 14. Significant loss of muscle with wasting in arms, chest, temples, periorbitally. Nutrition was consulted. Recommended nutritional supplementation. Started on a bowel regimen as well. Continue bowel regimen at discharge. Continue supplementation with meals. Recommend dietitian/nutrition consult once returns back to [facility] facility - Hypertension Continue home Lisinopril Stable for discharge back to [place] for continued rehab, PT, OT. Exam Data for Last 24 hours Vital signs and Labs for Last 24 Hours: Temp Pulse Resp BP Pulse Ox 98.6 F 96 H 16 122/62 96 08/25/22 07:18 08/25/22 07:18 08/25/22 07:18 08/25/22 07:18 08/25/22 07:18 Laboratory Results - last 24 hr 08/24/22 10:39: POC Glucose 126 H I & O for Last 24 hours: Intake & Output 08/22/22 08/23/22 08/24/22 08/25/22 23:59 23:59 23:59 23:59 Intake Total 1600 / 1650 460 / 460 300 / 300 Output Total 0 / 0 700 / 1150 800 / 800 Balance 1600 / 1650 -240 / -690 -500 / -500 Weight 38.102 kg 38 kg 42.411 kg Microbiology Reports for the Last 24 Hours: Microbiology 08/23/22 14:00 Urine,Catheterized Urine Culture - Preliminary Gram Negative Rods Constitutional Constitutional: no acute distress, cachectic, chronically ill appearing and cooperative Comments: Bitemporal wasting, prominent ribs, loss of periorbital fat *Routine HEENT Exam Head: Present atraumatic Eye: Present EOMI and PERRL ENT: Present mucous membranes moist Comments: Bi-temporal weight *Routine Neck Exam Neck: Present supple; Absent lymphadenopathy Routine Chest/Breast/Axilla Exam Chest wall: Absent te
--- NOTE | 2022-08-25 08:53 | PC.NURSE ---
pt has c/o pain in right leg distal from post op site. pt rate it 3 out of 10. right hip dsg C/D/I. gave norco for pain
--- NOTE | 2022-08-25 10:29 | XR_ITS ---
FINAL REPORT CLINICAL HISTORY: s/p hemiarthroplasty right hip FINDINGS: 2 VIEW PELVIS: A single view of the pelvis was obtained. There is postoperative change from a right hip antionette arthroplasty. A cerclage wire is present at the level of the lesser trochanter. There is a poorly defined intertrochanteric femoral fracture without displacement. The femoral cap is intact. Vizualized joint spaces are normally aligned. IMPRESSION: Postop antionette arthroplasty of the right hip Reviewed, Interpreted and Dictated by Malena Pang MD Transcribed by Mirna Velázquez Authenticated and [facility]
[2022-08-25 10:31] VITALS: BP 102/55; PULSE 74; RESP 16; TEMP 36.7; O2SAT 98
--- NOTE | 2022-08-25 14:37 | PC.NURSE ---
report called to derrek at [facility]
--- NOTE | 2022-08-26 13:39 | CARE MANAGER ---
Called and spoke with Theresa @ [place] [facility]. Patient is doing well, no complaints/concerns voiced at time of call.
== END 2022-08-25 15:28 | DRG 469 ==
LOC: 2ND 19:17
PROVIDERS: Nurse Practitioner Family; Orthopaedic Surgery; Admitting Provider Internal Medicine Adolescent Medicine; PCP Nurse Practitioner Family; Visit Provider Internal Medicine Adolescent Medicine
PROC: 0SRR0JZ Replacement of Right Hip Joint, Femoral Surface with Synthetic Substitute, Open Approach (ICD-10-PCS; principal; 2022-08-23 12:30)
DX: T84.89XA Other specified complication of internal orthopedic prosthetic devices, implants and grafts, initial encounter (principal); E43 Unspecified severe protein-calorie malnutrition; E87.1 Hypo-osmolality and hyponatremia; Z68.1 Body mass index [BMI] 19.9 or less, adult; N39.0 Urinary tract infection, site not specified; Y83.1 Surgical operation with implant of artificial internal device as the cause of abnormal reaction of the patient, or of later complication, without mention of misadventure at the time of the procedure; Z86.73 Personal history of transient ischemic attack (TIA), and cerebral infarction without residual deficits; J43.9 Emphysema, unspecified; K21.9 Gastro-esophageal reflux disease without esophagitis; M81.0 Age-related osteoporosis without current pathological fracture; F17.201 Nicotine dependence, unspecified, in remission; Z99.81 Dependence on supplemental oxygen; K59.00 Constipation, unspecified; F41.9 Anxiety disorder, unspecified
CPT/HCPCS: 27120; 36415; 72170; 73502; 76000; 80048; 80053; 81001; 82962; 85007; 85025; 87086; 87088; 87186; 87636; 94640; 94761; 96374; 97110; 97163; 97166; 97530; 97535; C1713; C1776; C9803; J0696; J2405; U0003; U0005

== ENCOUNTER → 2022-10-26 12:32 | Outpatient (CLI) | payer MEDICARE, SELFPAY ==
--- NOTE | 2022-10-26 12:36 | XR_ITS ---
FINAL REPORT CLINICAL HISTORY: rt hip pain FINDINGS: 2 views of the right hip and an AP pelvis were obtained. There is no acute fracture or dislocation. There has been right hip arthroplasty. There is a chronic calcification adjacent to the proximal right femur. IMPRESSION: No acute process. Reviewed, Interpreted and Dictated by Kenneth Mcfarland III, MD Transcribed by Killian Ramirez Authenticated and [facility]
== END ==
PROVIDERS: PCP Nurse Practitioner Family; Visit Provider Orthopaedic Surgery
DX: S72.141A Displaced intertrochanteric fracture of right femur, initial encounter for closed fracture (principal)
CPT/HCPCS: 73502

== ENCOUNTER → 2023-02-22 13:30 | Outpatient (CLI) | payer MEDICARE, SELFPAY ==
--- NOTE | 2023-02-22 13:35 | XR_ITS ---
FINAL REPORT CLINICAL HISTORY: right hip fx COMPARISON: 10/26/2022 FINDINGS: RIGHT HIP Two views of the right hip demonstrate no acute fracture or dislocation. The patient has undergone a prior right hip arthroplasty, as seen on prior films. The hardware appears stable. The visualized bony structures are well aligned. No soft tissue abnormality is seen. IMPRESSION: Right hip arthroplasty, stable in appearance since October. Reviewed, Interpreted and Dictated by Kenneth Mcfarland III, MD Transcribed by Mirna Velázquez Authenticated and [facility]
== END ==
PROVIDERS: PCP Nurse Practitioner Family; Visit Provider Orthopaedic Surgery
DX: S72.001A Fracture of unspecified part of neck of right femur, initial encounter for closed fracture (principal); M25.551 Pain in right hip
CPT/HCPCS: 73502

== ENCOUNTER 2023-08-23 13:34 | Outpatient (CLI) | payer MEDICARE, SELFPAY ==
--- NOTE | 2023-08-23 13:41 | XR_ITS ---
FINAL REPORT CLINICAL HISTORY: Rt Hip Pain FINDINGS: Right hip Four views were obtained. There is no acute fracture or dislocation. Patient is status post right hip arthroplasty. There are chronic calcifications adjacent to the greater trochanter. There is a sclerotic area superior to the right acetabulum of uncertain etiology. IMPRESSION: Sclerotic area superior to the right acetabulum. This could be further evaluated with follow-up radiographs. Reviewed, Interpreted and Dictated by Kenneth Mcfarland III, MD Transcribed by Lindsay La Authenticated and [facility]
== END 2023-08-23 23:59 | disposition home or self-care (01) ==
LOC: RAD 13:35
PROVIDERS: PCP Nurse Practitioner Family; Visit Provider Orthopaedic Surgery
DX: M25.551 Pain in right hip (principal)
CPT/HCPCS: 73502

== ENCOUNTER 2023-12-23 09:29 | Outpatient (CLI) | payer MEDICARE, SELFPAY ==
--- NOTE | 2023-12-23 09:37 | XR_ITS ---
FINAL REPORT CLINICAL HISTORY: LEUKOCYTOSIS COPD COMPARISON: 04/13/2022 FINDINGS: TWO-VIEW CHEST The heart size is normal. The mediastinum is normal. There is a new large opacity in the posterior right base, probably due to consolidation and effusion. There is no pneumothorax. IMPRESSION: New right base opacity, probably due to consolidation and effusion. Infused thoracic CT is recommended to further characterize. Reviewed, Interpreted and Dictated by Rubén Adam MD Transcribed by Lindsay La Authenticated and [facility]
== END 2023-12-23 23:59 | disposition home or self-care (01) ==
LOC: RAD 09:32
PROVIDERS: PCP Nurse Practitioner Family; Visit Provider Nurse Practitioner Family
DX: J44.9 Chronic obstructive pulmonary disease, unspecified (principal); D72.829 Elevated white blood cell count, unspecified
CPT/HCPCS: 71046

== ENCOUNTER 2024-01-11 07:55 | Outpatient (CLI) | payer MEDICARE, SELFPAY ==
--- NOTE | 2024-01-11 08:00 | CT_ITS ---
PROCEDURE INFORMATION: Exam: CT Chest With Contrast; Diagnostic Exam date and time: 01/11/2024 9:18 AM Age: 78 years old Clinical indication: Other: Opacity of lung on imaging study; TECHNIQUE: Imaging protocol: Diagnostic computed tomography of the chest with contrast. Radiation optimization: All CT scans at this facility use at least one of these dose optimization techniques: automated exposure control; mA and/or kV adjustment per patient size (includes targeted exams where dose is matched to clinical indication); or iterative reconstruction. Contrast material: ISOVUE; Contrast volume: 75 ml; Contrast route: IV; COMPARISON: CR XR CHEST 2V 12/23/2023 9:42 AM FINDINGS: Lungs: Large cystic and solid mass in the right lower lobe measures 8.8 x 8.3 cm. (series 2, image 38). This may represent a large cavitary lesion including lung cancer. Consolidation adjacent to the mass may represent pneumonia . Mild panlobular emphysematous changes Pleural spaces: Moderate right pleural effusion. Heart: Unremarkable. No cardiomegaly. No pericardial effusion. Lymph nodes: Unremarkable. No enlarged lymph nodes. Vasculature: Unremarkable. No aortic aneurysm. Gallbladder and biliary ducts: Gallstones in the gallbladder Kidneys: 14 mm mass in the right kidney measures 38 Hounsfield units.. Bones/joints: Unremarkable. No acute fracture. Soft tissues: Unremarkable. IMPRESSION: 1. Large cystic and solid mass in the right lower lobe measures 8.8 x 8.3 cm. (series 2, image 38). This may represent a large cavitary lesion including lung cancer. Recommend further evaluation 2. Consolidation adjacent to the mass may represent pneumonia . 3. Moderate right pleural effusion. 4. 14 mm mass in the right kidney measures 38 Hounsfield units.. Recommend MR without and with contrast or CT without and with contrast. MR is preferred for masses under 1.5 cm. COMMENTS: Consistent with the [employer]'s Incidental Findings Committee white paper (J Am Lalita Radiol 2018): Any incidental renal lesion less than 1 cm or classified as too small to characterize, or any incidental cystic renal lesion characterized as simple-appearing, is likely benign. No follow-up imaging is recommended for these lesions per consensus recommendations based on imaging criteria.
[2024-01-11 08:41] LABS: Blood Urea Nitrogen 13 mg/dl (7-17); Estimated Glomerular Filt Rate 97 ml/min (>60); GFR (African American) 118 ML/MIN (>60)
[2024-01-11] MEDS: IOPAMIDOL-370 (76%);100ML BOTTLE 75 ML IV (09:26)
[2024-01-11] MEDS: SODIUM CHLORIDE 0.9% 10ML SYR (RAD ONLY) 10 ML IV (09:26)
== END 2024-01-11 23:59 | disposition home or self-care (01) ==
LOC: RAD 07:56
PROVIDERS: PCP Nurse Practitioner Family; Visit Provider Nurse Practitioner Family
DX: R91.8 Other nonspecific abnormal finding of lung field (principal)
CPT/HCPCS: 36415; 71260; 82565; 84520; Q9967

== ENCOUNTER 2024-01-15 13:07 | Emergency (ER) | payer MEDICARE, SELFPAY ==
[2024-01-15] VITALS (12 sets, daily range): BP systolic 151–189; BP diastolic 76–108; PULSE 75–102; RESP 13–20; TEMP 36.5–36.9; O2SAT 91–96; BMI 17.2
--- NOTE | 2024-01-15 13:42 | ECG_ITS ---
APPROVED REPORT Exam: Resting ECG HR:76 bpm ECG Measurements Heart Rate 76 AXES VT 162 P 75 QRSd 134 QRS 50 QT 387 T 69 QTc 417 Conclusion SINUS RHYTHM RIGHT BUNDLE BRANCH BLOCK [120+ ms QRS DURATION, UPRIGHT V1, 40+ ms S IN I/aVL/V4/V5/V6] MODERATE VOLTAGE CRITERIA FOR LVH, CONSIDER NORMAL VARIANT [MEETS CRITERIA IN ONE OF: R(aVL), S(V1), R(V5), R(V5/V6)+S(V1)] ABNORMAL ECG Electronically signed by : ALISON PANIAGUA, 01/15/2024 17:01:04
[2024-01-15 13:57] LABS: Alanine Aminotransferase 11 U/L (12-78); Albumin Level 3.3 g/dl (3.5-5.0); Albumin/Globulin Ratio 0.9 (1.1-1.8); Alkaline Phosphatase 88 U/L (38-126); Anion Gap 7.8 mEq/L (5-15); Aspartate Amino Transferase 25 U/L (14-36); Basophils # 0.1 K/mm3 (0-0.2); Basophils % 0.6 % (0.1-2.0); Bilirubin,Total 0.4 mg/dl (0.2-1.3); Blood Urea Nitrogen 11 mg/dl (7-17); Calcium 8.8 mg/dl (8.4-10.2); Carbon Dioxide 32 mmol/L (22.0-30.0); Chloride 100 mmol/L (98-107); Creatinine Clearance Estimated 34 mL/min (50-200); Eosinophils # 0.4 K/mm3 (0.0-0.4); Eosinophils % 3.4 % (0.1-12.0); Estimated Glomerular Filt Rate 120 ml/min (>60); GFR (African American) 145 ML/MIN (>60); Globulin 3.7 g/dL (1.3-3.2); Glucose 118 mg/dl (74-100); Hematocrit 32.2 % (37.0-47.0); Hemoglobin 10.5 g/dL (12.2-16.2); Lymphocytes # 0.9 K/mm3 (0.7-4.5); Lymphocytes % 7.4 % (10-50); Mean Corpuscular HGB Conc 32.6 g/dL (31.8-35.4); Mean Corpuscular Hemoglobin 29.7 pg (27.0-31.2); Mean Corpuscular Volume 90.9 fl (81-99); Mean Platelet Volume 8.9 fl (7.4-10.4); Monocytes # 0.6 K/mm3 (0.1-1.0); Monocytes % 4.6 % (1.7-9.3); Neutrophils # 10.5 K/mm3 (1.8-7.8); Platelet Count 385 K/mm3 (142-424); Potassium 3.8 mmoL/L (3.5-5.1); Red Blood Count 3.54 M/mm3 (4.20-5.40); Red Cell Distribution Width 13.8 % (11.5-17.5); Sodium 136 mmol/L (136-145); White Blood Count 12.5 K/mm3 (4.8-10.8)
--- NOTE | 2024-01-15 14:12 | PC.NURSE ---
Dr. Luu at [facility] for pt eval
[2024-01-15 14:14] LABS: Troponin I < 0.01 ng/ml (0.00-0.034)
--- NOTE | 2024-01-15 14:18 | HMH.EDGENADL ---
Discharge Plan Disposition Patient Disposition: Xfer Short-Term Hosp Chief Complaint: Recheck/Abnormal Lab/Rx Prescriptions Prescriptions: No Action albuterol sulfate 2.5 mg /3 mL (0.083 %) solution for nebulization 2.5 mg inhalation Q4-6H PRN (Reason: Wheezing) Patient Comments: INHALE THE CONTENTS OF 1 VIAL VIA NEBULIZER EVERY 4 TO 6 HOURS NEEDED FOR WHEEZING alendronate 70 mg tablet 70 mg PO WEEKLY Patient Comments: TAKE 1 TABLET BY MOUTH ONCE WEEKLY ON THE SAME DAY EACH WEEK takes on sundays ipratropium-albuterol 0.5 mg-3 mg(2.5 mg base)/3 mL solution for nebulization 3 ml inhalation Q6HP PRN (Reason: Asthma) aspirin 81 mg tablet,delayed release (DR/EC) 81 mg PO BID lisinopril 10 mg tablet 10 mg PO DAILY hydrocodone-acetaminophen 5-325 mg Tablet 1 tab PO Q8HP PRN (Reason: Moderate To Severe Pain) 3 Days Qty: 12 0RF cefdinir 300 mg capsule 300 mg PO BID 3 Days Qty: 6 0RF buspirone 10 MG tablet 10 mg PO BID Patient Comments: take 1 tablet by mouth twice a day omeprazole 20 MG capsule,delayed release(DR/EC) 20 mg PO AM Rx Instructions: Every morning before breakfast Spiriva with HandiHaler 1 PUFF capsule, w/inhalation device 1 puff inhalation DAILY sodium chloride 1,000 mg tablet,soluble 1,000 mg PO DAILY nicotine 21 mg/24 hr Patch 24 Hour 21 mg transdermal DAILYP PRN (Reason: Nicotine Cravings) Qty: 0 0RF sennosides-docusate sodium [Stool Softener-Stimulant Laxat] 8.6-50 mg Tablet 1 tab PO DAILYP PRN (Reason: Constipation) Qty: 0 0RF acetaminophen 500 mg Tablet 500 mg PO Q6HP PRN (Reason: Fever Or Mild Pain) 30 Days Qty: 0 0RF Referrals Follow up/Referrals: Lona Mc [Primary Care Provider] - See instructions Activity Restrictions/Add. Instructions Additional Instructions/Restrictions: Please present immediately to [facility] emergency department for continued evaluation, they are expecting you. Clinical Impressions Clinical Impression: Lung mass, Pneumonia, Kidney mass Print Language Print Language: [place] Discharge ED Provider: Braeden Luu General Adult HPI General Chief complaint: Recheck/Abnormal Lab/Rx Stated complaint: spot on lungs Time Seen by Provider: 01/15/24 13:25 Mode of Arrival: Wheelchair Source of Information: Patient Limitations: No Limitations Description of Symptoms (Recalled from ER Triage Doc. by RN): pt presents to ED with concerns form pcp office. pt had CT scan a few days ago, pt was called and told to come to ED for fruther testing due to possibly mass/spot on her lungs. pt does wear oxygen 2L baseline. History of Present Illness HPI narrative: Patient is a 78-year-old female longstanding smoker with COPD on 2 L nasal cannula at baseline who presents to the emergency department for evaluation of findings on a CT scan. History is obtained by patient at bedside and per chart review. She recently underwent a CT scan and was remarkable for a large cystic and solid mass in the right lower lobe measuring 8.8 x 8.3 cm which may represent a large cavitary lesion including lung cancer with adjacent consolidation which may represent pneumonia as well as panlobular emphysematous changes. There is also a 14 mm mass in the right kidney for which further investigation was warranted. CT findings were relayed to family medicine who contacted her yesterday from [facility] telling her to present to the emergency department immediately for continued evaluation. Patient stated that she did not have a ride and was amenable to going tomorrow for which she presents here today for continued evaluation. With respect to respiratory symptoms she states she has a chronic mild cough at baseline, is on her baseline oxygen requirement, has no increased work of breathing, no chest pain, no cough that is worse than normal. No other acute complaints at this time. Related Data Home Medications ?Medication ?Instructions ?Recorded ?Confirmed buspirone 10 mg tablet 10 mg PO BID Anxiety 09/21/17 08/23/23 omeprazole 20 mg capsule,delayed 20 mg PO AM Acid reflux 09/21/17 08/23/23 release tiotropium bromide 18 mcg capsule 1 puff inhalation DAILY Breathing 09/21/17 08/23/23 with inhalation device (Spiriva problems with HandiHaler) albuterol sulfate 2.5 mg/3 mL 2.5 mg inhalation Q4-6H PRN 04/13/22 08/23/23 (0.083 %) solution for nebulization Wheezing alendronate 70 mg tablet 70 mg PO WEEKLY Osteoporosis 04/13/22 08/23/23 sodium chloride 1,000 mg soluble 1,000 mg PO DAILY Supplement 07/31/22 08/23/23 tablet aspirin 81 mg tablet,delayed 81 mg PO BID Heart health 08/20/22 08/23/23 release ipratropium 0.5 mg-albuterol 3 mg 3 ml inhalation Q6HP PRN Asthma 08/20/22 08/23/23 (2.5 mg base)/3 mL nebulization soln lisinopril 10 mg tablet 10 mg PO DAILY High blood pressure 08/20/22 08/23/23 Previous Rx's ?Medication ?Instructions ?Recorded nicotine 21 mg/24 hr daily 21 mg transdermal DAILYP PRN 08/02/22 transdermal patch Nicotine Cravings #0 ea sennosides 8.6 mg-docusate sodium 1 tab PO DAILYP PRN Constipation 08/02/22 50 mg tablet (Stool #0 tabs Softener-Stimulant Laxative) acetaminophen 500 mg tablet 500 mg PO Q6HP PRN Fever Or Mild 08/03/22 Pain 30 days #0 tabs cefdinir 300 mg capsule 300 mg PO BID 3 days #6 caps 08/25/22 hydrocodone 5 mg-acetaminophen 325 1 tab PO Q8HP PRN Moderate To 08/25/22 mg tablet Severe Pain 3 days #12 tabs Allergies Allergy/AdvReac Type Severity Reaction Status Date / Time No Known Allergies Allergy Verified 08/23/23 14:54 [facility] Disclaimer: The information contained in this section may have been updated after the patient was seen, as this information can be updated by other users. Medical History Falls Malnutrition Cerebral infarction COPD (chronic obstructive pulmonary disease) Emphysema of lung Closed hip fracture Tobacco dependence in remission Closed right hip fracture Osteoporosis GERD (gastroesophageal reflux disease) Anxiety Cataract Hyponatremia Hypertension COPD (chronic obstructive pulmonary disease) Surgical History History of mandibular surgery H/O right wrist surgery Family History Other Heart attack Hyperlipidemia Hypertension Social History Smoking Status: Current every day smoker tobacco type: cigarettes alcohol intake: never substance use type: denies use current occupational status: retired Travel in the last 8 weeks: None household members: family housing: house marital status: number of children: 4 Other Medical History Have you received the Flu Vaccine for this season: No Have you received the Pneumonia Vaccine: Yes ROS Obtained: Yes Systems reviewed as appropriate & no additional complaints except as documented Physical Exam General General appearance: alert and in no apparent distress Head Head exam: atraumatic and normocephalic Eye Eye exam: Present PERRL ENT ENT exam: Present mucous membranes moist Neck Neck exam: Present normal inspection Chest Chest inspection: Present normal inspection and symmetric chest wall rise Respiratory Respiratory exam: Present wheezes (Decreased air movement right lower lobe); Absent respiratory distress Cardiovascular Cardiovascular exam: Present regular rate and normal rhythm Abdominal Exam Abdominal exam: Present soft; Absent tenderness Extremities Exam Extremities exam: Present normal inspection Neurological Exam Neurological exam: Present alert and CN II-XII intact Psychiatric Psychiatric exam: Present normal affect Skin Skin exam: Present warm and dry Medical Decision Making Medical Records Screening: Per USPSTF and CDC recommendations, given the prevalence of disease in our region, it is our hospital?s policy to screen for HIV and viral Hepatitis for all patients aged 18 and over and those with ongoing risk factors. Jem Inquiry Pt receiving controlled substance: No Vital Signs: 01/15/24 13:10 01/15/24 13:21 01/15/24 13:30 Temperature 98.4 F Temperature Source Oral Pulse Rate 81 77 Pulse Rate [Left Radial] 77 Respiratory Rate 13 Blood Pressure 168/108 H 169/77 H Blood Pressure [Right Arm] 169/76 H Blood Pressure Mean [Right Arm] 107 02 Sat by Pulse Oximetry 95 96 96 Oxygen Delivery Method Nasal Cannula Nasal Cannula Nasal Cannula Oxygen Flow Rate (LPM) 2 01/15/24 14:00 01/15/24 14:47 Temperature Temperature Source Pulse Rate 75 Pulse Rate [Left Radial] 77 Respiratory Rate Blood Pressure 163/78 H Blood Pressure [Right Arm] Blood Pressure Mean [Right Arm] 02 Sat by Pulse Oximetry 95 94 L Oxygen Delivery Method Room Air Oxygen Flow Rate (LPM) Lab Data Lab Results 01/15/24 13:29: WBC 12.5 H, RBC 3.54 L, Hgb 10.5 L, Hct 32.2 L, MCV 90.9, MCH 29.7, MCHC 32.6, RDW 13.8, Plt Count 385, MPV 8.9, Neut % (Auto) 84.0 H, Lymph % (Auto) 7.4 L, Mcmullen % (Auto) 4.6, Eos % (Auto) 3.4, Baso % (Auto) 0.6, Neut # (Auto) 10.5 H, Lymph # (Auto) 0.9, Mcmullen # (Auto) 0.6, Eos # (Auto) 0.4, Baso # (Auto) 0.1, Sodium 136, Potassium 3.8, Chloride 100, Carbon Dioxide 32 H, Anion Gap 7.8, BUN 11, Creatinine 0.50 L, Estimated Creat Clear 34, Estimated GFR 120, Est GFR ( Amer) 145, Glucose 118 H, Calcium 8.8, Total Bilirubin 0.4, AST 25, ALT 11 L, Alkaline Phosphatase 88, Troponin I < 0.01, Total Protein 7.0, Albumin 3.3 L, Globulin 3.7 H, Albumin/Globulin Ratio 0.9 L 01/15/24 13:29 01/15/24 13:29 Orders (Tests/Meds): ED MEDICATIONS Generic Name Dose Route Start Last Admin Trade Name Freq PRN Reason Stop Dose Admin Sodium Chloride 10 ml 01/15/24 13:33 Sodium Chloride 0.9% 10ml Flush Syringe IV 02/14/24 13:32 NEEDED PRN Maintain IV Site Discontinued Medications Generic Name Dose Route Start Last Admin Trade Name Freq PRN Reason Stop Dose Admin Ceftriaxone Sodium 1 gm/ 50 mls @ 100 mls/hr 01/15/24 15:26 01/15/24 15:42 Sodium Chloride IV 01/15/24 15:55 100 mls/hr ONCE ONE Administration Azithromycin 500 mg/ Sodium 250 mls @ 250 mls/hr 01/15/24 15:27 01/15/24 16:04 Chloride IV 01/15/24 15:28 250 mls/hr ONCE ONE Administration ORDERS Category Date Time Status CBC w/Auto Diff [Complete Blood Count Auto Diff] Stat Lab 01/15/24 13:29 Completed CMP [Comprehensive Metabolic Panel] Stat Lab 01/15/24 13:29 Completed HIV (1&2) Antibody Rapid Stat Lab 01/15/24 13:29 Received Hep C Ab with Reflex to RNA Stat Lab 01/15/24 13:24 Ordered Trop I [Troponin I] Stat Lab 01/15/24 13:29 Completed Troponin I Q3H Lab 01/15/24 16:45 Ordered Troponin I Q3H Lab 01/15/24 19:45 Ordered Blood Culture Stat Micro 01/15/24 15:49 Received ECG Data Tracing #1: Independently interpreted by me rate is 76, rhythm is regular, axis is normal, right bundle branch block, no ST elevation in anatomical contiguous leads, QTc 417. Medical Decision Narrative: In summary patient is a 78-year-old female past medical history described above who presents emergency department for evaluation of findings of a cystic lung mass in the setting of COPD and longstanding smoking. Patient is hemodynamically stable nontoxic-appearing upon arrival, afebrile, at her baseline oxygen requirement. Given that she has no increased respiratory symptoms, no fever, no significant respiratory distress I suspect that all these findings on her CT are related to her mass and that she may have a postobstructive pneumonia however does not have an acute lobar pneumonia on top of it. Workup will be conducted with hematologic labs and patient will be started on antibiotics of ceftriaxone and azithromycin. Patient appears euvolemic so crystalloid resuscitation will be deferred. Initial workup reviewed by me, hematologic labs are nonactionable, slight leukocytosis, no GALINA or critical electrolyte abnormality. CT imaging imaging informally interpreted by me and is rather impressive on the right side. However patient is completely at her baseline in terms of respiratory support, respiratory status, and does not have any critical hematologic labs therefore utility of inpatient versus outpatient management requires expert opinion. The case was discussed with [facility] Dr. Márquez who graciously accepted patient for continued evaluation at this time. Given that patient has no increased respiratory drive and is on her baseline oxygen settings has access to mobile oxygen patient is appropriate for transfer via POV at this time. Critical Care Critical Care Time Critical Care Time: No
--- NOTE | 2024-01-15 14:18 | PC.NURSE ---
calling [facility] at this time.
[2024-01-15] MEDS: CEFTRIAXONE 1 GM 1 GM in 0.9 % SODIUM CHLORIDE 50 ML IV (15:42)
[2024-01-15] MEDS: AZITHROMYCIN 500 MG in 0.9 % SODIUM CHLORIDE 250 ML 250 MG IV (16:04)
[2024-01-15 16:46] LABS: HIV (1&2) Antibody Rapid NONREACTIVE (NONREACTIVE)
[2024-01-17 09:38] LABS: HCV Ab Non Reactive (Non Reactive)
--- NOTE | 2024-01-19 10:34 | PC.NURSE ---
blood culture positive, awaiting results. will be sent out for evaluation
== END 2024-01-15 17:36 | disposition short-term general hospital (02) ==
PROVIDERS: Emergency Provider Emergency Medicine; PCP Nurse Practitioner Family
DX: R93.89 Abnormal findings on diagnostic imaging of other specified body structures (principal); N28.89 Other specified disorders of kidney and ureter; J18.9 Pneumonia, unspecified organism; R91.8 Other nonspecific abnormal finding of lung field
CPT/HCPCS: 80053; 84484; 85025; 86803; 87040; 87186; 87389; 93005; 96365; 96374; 99283; J0456; J0696; J7050

== ENCOUNTER 2024-05-31 08:09 | Emergency (ER) | payer OTHER, SELFPAY ==
[2024-05-31] VITALS (14 sets, daily range): BP systolic 121–134; BP diastolic 57–74; PULSE 83–99; RESP 15–30; TEMP 36.5–36.6; O2SAT 64–100; BMI 16.6
--- NOTE | 2024-05-31 08:12 | HMH.EDGENADL ---
Discharge Plan Disposition Chief Complaint: Shortness of Breath/Dyspnea Prescriptions Prescriptions: No Action albuterol sulfate 2.5 mg /3 mL (0.083 %) solution for nebulization 2.5 mg inhalation Q4-6H PRN (Reason: Wheezing) Patient Comments: INHALE THE CONTENTS OF 1 VIAL VIA NEBULIZER EVERY 4 TO 6 HOURS NEEDED FOR WHEEZING alendronate 70 mg tablet 70 mg PO WEEKLY Patient Comments: TAKE 1 TABLET BY MOUTH ONCE WEEKLY ON THE SAME DAY EACH WEEK takes on sundays ipratropium-albuterol 0.5 mg-3 mg(2.5 mg base)/3 mL solution for nebulization 3 ml inhalation Q6HP PRN (Reason: Asthma) aspirin 81 mg tablet,delayed release (DR/EC) 81 mg PO BID lisinopril 10 mg tablet 10 mg PO DAILY hydrocodone-acetaminophen 5-325 mg Tablet 1 tab PO Q8HP PRN (Reason: Moderate To Severe Pain) 3 Days Qty: 12 0RF cefdinir 300 mg capsule 300 mg PO BID 3 Days Qty: 6 0RF buspirone 10 MG tablet 10 mg PO BID Patient Comments: take 1 tablet by mouth twice a day omeprazole 20 MG capsule,delayed release(DR/EC) 20 mg PO AM Rx Instructions: Every morning before breakfast Spiriva with HandiHaler 1 PUFF capsule, w/inhalation device 1 puff inhalation DAILY sodium chloride 1,000 mg tablet,soluble 1,000 mg PO DAILY nicotine 21 mg/24 hr Patch 24 Hour 21 mg transdermal DAILYP PRN (Reason: Nicotine Cravings) Qty: 0 0RF sennosides-docusate sodium [Stool Softener-Stimulant Laxat] 8.6-50 mg Tablet 1 tab PO DAILYP PRN (Reason: Constipation) Qty: 0 0RF acetaminophen 500 mg Tablet 500 mg PO Q6HP PRN (Reason: Fever Or Mild Pain) 30 Days Qty: 0 0RF Referrals Follow up/Referrals: Lona Mc [Primary Care Provider] - See instructions Print Language Print Language: Uzbek Discharge ED Provider: Bal Ruiz General Adult HPI General Chief complaint: Shortness of Breath/Dyspnea Stated complaint: cough, soa, low oxygen levels Time Seen by Provider: 05/31/24 08:12 History of Present Illness HPI narrative: Patient presents for evaluation of dyspnea, gradual in onset, constant, worsening, starting today, in the setting of reported history of lung cancer on reported chemotherapy. No known sick contacts, no fevers, no chills, no chest pain, patient notes chronic bilateral lower extremity edema that has not worsened. Patient has been on steroids recently per son at bedside. No injuries. No hemoptysis. No blood thinner usage. Please note that above description of symptoms, in this electronic medical record under categorization of recalled from ER triage doctor by RN are reflective of an initial nursing assessment, however, is not reflective of my full history and physical exam that was personally taken and clarified. Consequentially, this preceding description of symptoms, which may include the patient's categorized chief complaint in the EMR, do not reflect my personal clinical impression, and the ultimate description of history of present illness and patient stated complaints should be deferred to this section of the note. Unless stated otherwise or congruent with this section of the note, additional signs, symptoms, or incongruence should be interpreted as inaccurate with my clinical impression. Related Data Home Medications ?Medication ?Instructions ?Recorded ?Confirmed buspirone 10 mg tablet 10 mg PO BID Anxiety 09/21/17 08/23/23 omeprazole 20 mg capsule,delayed 20 mg PO AM Acid reflux 09/21/17 08/23/23 release tiotropium bromide 18 mcg capsule 1 puff inhalation DAILY Breathing 09/21/17 08/23/23 with inhalation device (Spiriva problems with HandiHaler) albuterol sulfate 2.5 mg/3 mL 2.5 mg inhalation Q4-6H PRN 04/13/22 08/23/23 (0.083 %) solution for nebulization Wheezing alendronate 70 mg tablet 70 mg PO WEEKLY Osteoporosis 04/13/22 08/23/23 sodium chloride 1,000 mg soluble 1,000 mg PO DAILY Supplement 07/31/22 08/23/23 tablet aspirin 81 mg tablet,delayed 81 mg PO BID Heart health 08/20/22 08/23/23 release ipratropium 0.5 mg-albuterol 3 mg 3 ml inhalation Q6HP PRN Asthma 08/20/22 08/23/23 (2.5 mg base)/3 mL nebulization soln lisinopril 10 mg tablet 10 mg PO DAILY High blood pressure 08/20/22 08/23/23 Previous Rx's ?Medication ?Instructions ?Recorded nicotine 21 mg/24 hr daily 21 mg transdermal DAILYP PRN 08/02/22 transdermal patch Nicotine Cravings #0 ea sennosides 8.6 mg-docusate sodium 1 tab PO DAILYP PRN Constipation 08/02/22 50 mg tablet (Stool #0 tabs Softener-Stimulant Laxative) acetaminophen 500 mg tablet 500 mg PO Q6HP PRN Fever Or Mild 08/03/22 Pain 30 days #0 tabs cefdinir 300 mg capsule 300 mg PO BID 3 days #6 caps 08/25/22 hydrocodone 5 mg-acetaminophen 325 1 tab PO Q8HP PRN Moderate To 08/25/22 mg tablet Severe Pain 3 days #12 tabs Allergies Allergy/AdvReac Type Severity Reaction Status Date / Time No Known Allergies Allergy Verified 08/23/23 14:[address] [facility] Disclaimer: The information contained in this section may have been updated after the patient was seen, as this information can be updated by other users. Medical History Falls Malnutrition Cerebral infarction COPD (chronic obstructive pulmonary disease) Emphysema of lung Closed hip fracture Tobacco dependence in remission Closed right hip fracture Osteoporosis GERD (gastroesophageal reflux disease) Anxiety Cataract Hyponatremia Hypertension COPD (chronic obstructive pulmonary disease) Surgical History History of mandibular surgery H/O right wrist surgery Family History Other Heart attack Hyperlipidemia Hypertension Social History Smoking Status: Former smoker tobacco type: cigarettes alcohol intake: never substance use type: denies use current occupational status: retired Travel in the last 8 weeks: None household members: family housing: house marital status: number of children: 4 Have you lived/traveled outside [place] in past 30 days?: No Contact w/someone who lives/traveled outside US past 30 days?: No Exposure to someone with infectious disease in past 14 days?: No Do you have a fever (greater than 100.4 F or 38 C)?: No Have you tested positive for COVID-19: No Exposed to someone with COVID-19 in past 14 days?: No Do you have a sore throat?: No Do you have a cough?: Yes Do you have any weakness?: No Do you have any diarrhea?: No Are you experiencing any unusual bleeding?: No Do you have any muscle aches/pain?: No Do you have any abdominal pain?: No Are you experiencing loss of taste or smell?: No Other Medical History Have you received the Flu Vaccine for this season: No Have you received the Pneumonia Vaccine: Yes ROS Obtained: Yes other As per HPI Physical Exam General General appearance: alert Head Head exam: atraumatic and normocephalic Eye Eye exam: Present normal appearance Neck Neck exam: Present normal inspection Chest Chest inspection: Present normal inspection and symmetric chest wall rise Respiratory Respiratory exam: Present accessory muscle use Cardiovascular Cardiovascular exam: Present regular rate and normal rhythm Abdominal Exam Abdominal exam: Present soft Neurological Exam Neurological exam: Present alert and oriented X3 Psychiatric Psychiatric exam: Present normal affect and normal mood Skin Skin exam: Present warm and dry Medical Decision Making Medical Records Medical records reviewed: Yes I reviewed the patient's medical records. Screening: Per USPSTF and CDC recommendations, given the prevalence of disease in our region, it is our hospital?s policy to screen for HIV and viral Hepatitis for all patients aged 18 and over and those with ongoing risk factors. Jem Inquiry Pt receiving controlled substance: No Vital Signs: 05/31/24 08:21 05/31/24 08:24 05/31/24 08:30 Temperature 97.7 F Temperature Source Axillary Pulse Rate 94 H 92 H Pulse Rate [Right] 91 H Respiratory Rate 30 H 25 H 24 Blood Pressure 130/74 133/68 Blood Pressure [Right Arm] 130/74 Blood Pressure Mean 99 Blood Pressure Mean [Right Arm] 92 02 Sat by Pulse Oximetry 78 L 100 100 Oxygen Delivery Method Nasal Cannula Oxygen Flow Rate (LPM) 4 05/31/24 09:00 05/31/24 09:30 05/31/24 10:00 Temperature Temperature Source Pulse Rate 93 H 99 H 92 H Pulse Rate [Right] Respiratory Rate 20 23 20 Blood Pressure 125/65 128/65 134/65 Blood Pressure [Right Arm] Blood Pressure Mean 88 86 91 Blood Pressure Mean [Right Arm] 02 Sat by Pulse Oximetry 100 100 98 Oxygen Delivery Method Oxygen Flow Rate (LPM) 05/31/24 10:30 Temperature Temperature Source Pulse Rate 89 Pulse Rate [Right] Respiratory Rate 19 Blood Pressure 125/62 Blood Pressure [Right Arm] Blood Pressure Mean 95 Blood Pressure Mean [Right Arm] 02 Sat by Pulse Oximetry 97 Oxygen Delivery Method Oxygen Flow Rate (LPM) Lab Data Lab Results 05/31/24 08:15: SARS-CoV-2 (PCR) Detected A, Influenza A Untype (PCR) Not detected, Influenza Type B (PCR) Not detected 05/31/24 08:35: WBC 19.8 H, RBC 3.17 L, Hgb 8.8 L, Hct 29.3 L, MCV 92.4, MCH 27.8, MCHC 30.0 L, RDW 15.8, Plt Count 256, MPV 10.6 H, Neut % (Auto) 96.3 H, Lymph % (Auto) 1.6 L, Beaver % (Auto) 1.4 L, Eos % (Auto) 0.1, Baso % (Auto) 0.1, Neut # (Auto) 19.1 H, Lymph # (Auto) 0.3 L, Beaver # (Auto) 0.3, Eos # (Auto) 0.0, Baso # (Auto) 0.0, Total Counted 100, Neutrophils % (Manual) 95 H, Lymphocytes % (Manual) 4 L, Monocytes % (Manual) 1 L, Platelet Estimate Normal, Hypochromasia 2+, PT 10.5, INR 0.93, Sodium 134 L, Potassium 4.5, Chloride 99, Carbon Dioxide 34 H, Anion Gap 5.5, BUN 25 H, Creatinine 0.50 L, Estimated Creat Clear 31, Estimated GFR 120, Est GFR ( Amer) 145, Glucose 129 H, Uric Acid 5.0, Calcium 8.5, Magnesium 1.8, Total Bilirubin 0.2, AST 24, ALT 24, Alkaline Phosphatase 98, Lactate Dehydrogenase 134 L, Troponin I 0.02, C-Reactive Protein 167.6 H, NT-Pro-B Natriuret Pep 1750 H, Total Protein 6.6, Albumin 3.2 L, Globulin 3.4 H, Albumin/Globulin Ratio 0.9 L, Lipase 13 L 05/31/24 08:53: VBG pH 7.33, VBG pCO2 56.5 H, VBG pO2 53.2 H, VBG HCO3 29.0, VBG Total CO2 30.7 H, VBG O2 Saturation 85.9 H, VBG Base Excess 3.0 H, VBG Lactic Acid 1.1 05/31/24 09:20: Urine Color Yellow, Urine Appearance Clear, Urine pH 5.0, Ur Specific Pompey >= 1.030, Urine Protein 1+ A, Urine Glucose (UA) Negative, Urine Ketones Negative, Urine Blood Trace A, Urine Nitrate Negative, Urine Bilirubin Negative, Urine Urobilinogen 0.2, Ur Leukocyte Esterase Negative, Urine RBC Occasional, Urine WBC None, Ur Squamous Epith Cells None, Urine Bacteria None 05/31/24 08:35 05/31/24 08:35 Orders (Tests/Meds): ED MEDICATIONS Discontinued Medications Generic Name Dose Route Start Last Admin Trade Name Freq PRN Reason Stop Dose Admin Albuterol/Ipratropium 3 ml 05/31/24 10:50 Ipratropium/Albuterol 3 Ml Neb IH 05/31/24 10:51 ONCE ONE Dexamethasone Sodium Phosphate 6 mg 05/31/24 10:48 Dexamethasone 4mg/Ml 1ml Vial IV 05/31/24 10:49 ONCE ONE ORDERS Category Date Time Status XR chest portable Stat Exams 05/31/24 08:48 Completed BNP [NT Pro Brain Natriuretic Pep.] Stat Lab 05/31/24 08:35 Completed CBC w/Auto Diff [Complete Blood Count Auto Diff] Stat Lab 05/31/24 08:35 Completed CMP [Comprehensive Metabolic Panel] Stat Lab 05/31/24 08:35 Completed CRP [C-Reactive Protein] Stat Lab 05/31/24 08:35 Completed LDH [Lactate Dehydrogenase] Stat Lab 05/31/24 08:35 Completed Lactate Venous Stat Lab 05/31/24 08:54 Ordered Lipase Stat Lab 05/31/24 08:35 Completed MAG [Magnesium] Stat Lab 05/31/24 08:35 Completed PT INR [Prothrombin Time INR] Stat Lab 05/31/24 08:35 Completed Rapid PCR Covid and Flu A/B Stat Lab 05/31/24 08:15 Completed Troponin I Q3H Lab 05/31/24 08:35 Completed Troponin I Q3H Lab 05/31/24 12:00 Ordered Uric Acid Stat Lab 05/31/24 08:35 Completed Urinalysis and Microscopic Stat Lab 05/31/24 09:20 Completed Blood Culture Stat Micro 05/31/24 09:07 Received VBG [Venous Blood Gas] Stat RT 05/31/24 08:53 Completed Medical Decision Narrative: Patient with history and exam per above presenting for evaluation of shortness of breath in the setting of history of lung cancer Diagnoses considered include ACS, pneumonia, pulmonary embolism, among others. ED workup and treatment included: ED MEDICATIONS Discontinued Medications Generic Name Dose Route Start Last Admin Trade Name Freq PRN Reason Stop Dose Admin Albuterol/Ipratropium 3 ml 05/31/24 10:50 Ipratropium/Albuterol 3 Ml Neb IH 05/31/24 10:51 ONCE ONE Dexamethasone Sodium Phosphate 6 mg 05/31/24 10:48 Dexamethasone 4mg/Ml 1ml Vial IV 05/31/24 10:49 ONCE ONE ORDERS Category Date Time Status XR chest portable Stat Exams 05/31/24 08:48 Completed BNP [NT Pro Brain Natriuretic Pep.] Stat Lab 05/31/24 08:35 Completed CBC w/Auto Diff [Complete Blood Count Auto Diff] Stat Lab 05/31/24 08:35 Completed CMP [Comprehensive Metabolic Panel] Stat Lab 05/31/24 08:35 Completed CRP [C-Reactive Protein] Stat Lab 05/31/24 08:35 Completed LDH [Lactate Dehydrogenase] Stat Lab 05/31/24 08:35 Completed Lactate Venous Stat Lab 05/31/24 08:54 Ordered Lipase Stat Lab 05/31/24 08:35 Completed MAG [Magnesium] Stat Lab 05/31/24 08:35 Completed PT INR [Prothrombin Time INR] Stat Lab 05/31/24 08:35 Completed Rapid PCR Covid and Flu A/B Stat Lab 05/31/24 08:15 Completed Troponin I Q3H Lab 05/31/24 08:35 Completed Troponin I Q3H Lab 05/31/24 12:00 Ordered Uric Acid Stat Lab 05/31/24 08:35 Completed Urinalysis and Microscopic Stat Lab 05/31/24 09:20 Completed Blood Culture Stat Micro 05/31/24 09:07 Received VBG [Venous Blood Gas] Stat RT 05/31/24 08:53 Completed Labs were independently interpreted by me, significant for chronic leukocytosis, VBG with pH 7.33, bicarb 29.0. Creatinine within normal limits. BNP 1750, elevated CRP, COVID-19 detected Imaging was independently visualized and interpreted by me, significant for right-sided pleural effusion, chronic disease in the setting of lung cancer. Please refer to radiology report for full details. Patient was treated with dexamethasone in the emergency department for COVID-19. I suspect symptoms are likely overall attributable to COVID-19. Given comorbidities, I believe she will benefit from transfer to [facility] for ongoing care. She is up 1 L nasal cannula to 4 L nasal cannula from her baseline of 3. Patient was accepted to [facility] emergency department by Dr. Nunez Critical Care Critical Care Time Critical Care Time: No
--- NOTE | 2024-05-31 08:18 | ECG_ITS ---
APPROVED REPORT Exam: Resting ECG HR:102 bpm ECG Measurements Heart Rate 102 AXES NM 154 P 70 QRSd 128 QRS 89 QT 339 T 63 QTc 398 Conclusion SINUS TACHYCARDIA RIGHT BUNDLE BRANCH BLOCK [120+ ms QRS DURATION, UPRIGHT V1, 40+ ms S IN I/aVL/V4/V5/V6] POSSIBLE SEPTAL MYOCARDIAL INFARCTION , PROBABLY OLD [30 ms Q WAVE IN V1/V2] ABNORMAL ECG Significant wandering nondiagnostic Electronically signed by : ALISON PANIAGUA, 06/01/2024 10:30:21
--- NOTE | 2024-05-31 08:48 | XR_ITS ---
FINAL REPORT CLINICAL HISTORY: hx lung ca, R sided effusion on pocus COMPARISON: 12/23/2023 FINDINGS: A single view of the chest was obtained. The heart size is normal. The mediastinum is normal. There is a patchy airspace opacity at the right base. There is a coarse interstitial opacity in both lungs, which is more evident than previous and may be due to edema. There is a moderate right pleural effusion, which is significantly larger than previous exam. There is no pneumothorax. There is a sideplate and screws securing the proximal right humerus. IMPRESSION: Increased right pleural effusion and increased bilateral interstitial opacities all concerning for acute edema. Reviewed, Interpreted and Dictated by Rubén Adam MD Transcribed by Lucie Rosenbaum Authenticated and [facility]
--- NOTE | 2024-05-31 08:53 | PC.NURSE ---
spoke with respiratory regarding VBG
[2024-05-31 08:54] LABS: Basophils % 0.1 % (0.1-2.0); Eosinophils % 0.1 % (0.1-12.0); Hematocrit 29.3 % (37.0-47.0); Hemoglobin 8.8 g/dL (12.2-16.2); Lymphocytes # 0.3 K/mm3 (0.7-4.5); Lymphocytes % 1.6 % (10-50); Mean Corpuscular Hemoglobin 27.8 pg (27.0-31.2); Mean Corpuscular Volume 92.4 fl (81-99); Mean Platelet Volume 10.6 fl (7.4-10.4); Monocytes # 0.3 K/mm3 (0.1-1.0); Monocytes % 1.4 % (1.7-9.3); Neutrophils # 19.1 K/mm3 (1.8-7.8); Neutrophils % 96.3 % (37.0-80.0); Platelet Count 256 K/mm3 (142-424); Red Blood Count 3.17 M/mm3 (4.20-5.40); Red Cell Distribution Width 15.8 % (11.5-17.5); White Blood Count 19.8 K/mm3 (4.8-10.8)
[2024-05-31 08:56] LABS: Lactate Venous 1.1 mmol/L (0.4-2.0); VBG Oxygen Saturation 85.9 % (50-70); VBG PH 7.33 mmol/L (7.31-7.41); VBG PO2 53.2 mmol/L (28-40); VBG Total CO2 30.7 mmol/L (23-27)
[2024-05-31 08:58] LABS: MANUAL DIFFERENTIAL MANUAL DIFFERENTIAL (MANUAL DIFF)
[2024-05-31 08:58] LABS: VBG PCO2 56.5 mmol/L (35-51)
[2024-05-31 09:01] LABS: INR 0.93 (0.9-1.1); Prothrombin Time 10.5 seconds (10.1-12.5)
[2024-05-31 09:04] LABS: Influenza A, PCR Not Detected (NotDetected); Influenza B, PCR Not Detected (NotDetected)
[2024-05-31 09:08] LABS: Alanine Aminotransferase 24 U/L (12-78); Albumin Level 3.2 g/dl (3.5-5.0); Albumin/Globulin Ratio 0.9 (1.1-1.8); Alkaline Phosphatase 98 U/L (38-126); Anion Gap 5.5 mEq/L (5-15); Aspartate Amino Transferase 24 U/L (14-36); Bilirubin,Total 0.2 mg/dl (0.2-1.3); Blood Urea Nitrogen 25 mg/dl (7-17); Calcium 8.5 mg/dl (8.4-10.2); Carbon Dioxide 34 mmol/L (22.0-30.0); Chloride 99 mmol/L (98-107); Creatinine Clearance Estimated 31 mL/min (50-200); Estimated Glomerular Filt Rate 120 ml/min (>60); GFR (African American) 145 ML/MIN (>60); Globulin 3.4 g/dL (1.3-3.2); Glucose 129 mg/dl (74-100); Lactate Dehydrogenase 134 U/L (313-618); Lipase 13 U/L (23-300); Magnesium 1.8 mg/dl (1.6-2.3); Potassium 4.5 mmoL/L (3.5-5.1); Sodium 134 mmol/L (136-145); Total Protein,Serum 6.6 g/dl (6.3-8.2)
[2024-05-31 09:13] LABS: C-Reactive Protein 167.6 mg/L (0-4)
[2024-05-31 09:18] LABS: Hypochromasia 2+; Lymphocytes % 4 % (10-50); Monocytes % 1 % (2-9); Neutrophils % 95 % (42-76); Platelet Estimate Normal; Total Cells Counted 100
[2024-05-31 09:22] LABS: NT Pro Brain Natriuretic Pep. 1750 pg/mL (0-450); Troponin I 0.02 ng/ml (0.00-0.034)
--- NOTE | 2024-05-31 09:24 | PC.NURSE ---
pt in and out cathed to obtain urine specimen
[2024-05-31 09:26] LABS: Microscopic, Urine URINE MICROSCOPIC (MICROSCOPIC)
[2024-05-31 09:27] LABS: Coronavirus 19, PCR Detected (NotDetected)
--- NOTE | 2024-05-31 09:46 | PC.NURSE ---
pt saturation was 100% on nonrebreather. i put her back on her home 02 of 4lnc. will see how she tolerates
[2024-05-31 10:29] LABS: Appearance,Urine Clear (Clear); Color,Urine Yellow (Yellow)
[2024-05-31 10:30] LABS: Glucose,Urine (UA) Negative (Negative); Ketones,Urine Negative (Negative); Protein,Urine 1+ (Negative); Specific Gravity, Urine >= 1.030 (1.005-1.030)
[2024-05-31 10:31] LABS: Bilirubin,Urine Negative (Negative); Blood, Urine Trace (Negative); Leukocyte Esterase,Urine Negative (Negative); Nitrate,Urine Negative (Negative); RBC,Urine Occasional #/hpf (0-3); Urobilinogen,Urine 0.2 EU/dl (0.2)
--- NOTE | 2024-05-31 11:34 | PC.NURSE ---
Called [facility] per Dr Ruiz to speak with them about this pt. has me on hold while they connect us with the Hospitalist. Dr Ruiz is speaking with [facility] now.
--- NOTE | 2024-05-31 11:38 | PC.NURSE ---
Images were powershared to [employer] and [employer] on this pt
[2024-05-31] MEDS: DEXAMETHASONE 4MG/ML 1ML VIAL 6 MG IV (11:55)
[2024-05-31] MEDS: IPRATROPIUM/ALBUTEROL 3 ML NEB IH (11:55)
[2024-05-31 12:19] LABS: Troponin I < 0.01 ng/ml (0.00-0.034)
--- NOTE | 2024-05-31 13:29 | PC.NURSE ---
REGULAR LUNCH TRAY REQUESTED FOR PT
--- NOTE | 2024-05-31 13:35 | PC.NURSE ---
report called to Irma Vazquez Zay
== END 2024-05-31 15:30 | disposition short-term general hospital (02) ==
PROVIDERS: Emergency Provider Emergency Medicine; PCP Nurse Practitioner Family
DX: U07.1 COVID-19 (principal); C34.90 Malignant neoplasm of unspecified part of unspecified bronchus or lung; R06.00 Dyspnea, unspecified; Z87.891 Personal history of nicotine dependence
CPT/HCPCS: 71045; 80053; 81001; 82803; 83615; 83690; 83735; 83880; 84484; 84550; 85007; 85025; 85027; 85610; 86140; 87040; 87636; 93005; 96374; 99284; J1100; J7620

== ENCOUNTER 2024-07-05 13:01 | Emergency (ER) | payer OTHER, SELFPAY ==
[2024-07-05] VITALS (57 sets, daily range): BP systolic 93–149; BP diastolic 52–97; PULSE 71–127; RESP 15–38; TEMP 37.1–37.7; O2SAT 69–100; BMI 16.0
--- NOTE | 2024-07-05 13:14 | ED_ITS ---
Discharge Plan Disposition Patient Disposition: Xfer Short-Term Hosp Condition: Critical Prescriptions Prescriptions: No Action albuterol sulfate 2.5 mg /3 mL (0.083 %) solution for nebulization 2.5 mg inhalation Q4HP PRN (Reason: Wheezing) Patient Comments: INHALE THE CONTENTS OF 1 VIAL VIA NEBULIZER EVERY 4 TO 6 HOURS NEEDED FOR WHEEZING alendronate 70 mg tablet 70 mg PO WEEKLY Patient Comments: TAKE 1 TABLET BY MOUTH ONCE WEEKLY ON THE SAME DAY EACH WEEK takes on sundays cefdinir 300 mg capsule 300 mg PO BID 3 Days Qty: 6 0RF buspirone 10 MG tablet 10 mg PO BID Patient Comments: take 1 tablet by mouth twice a day omeprazole 20 MG capsule,delayed release(DR/EC) 20 mg PO DAILY sodium chloride 1,000 mg tablet,soluble 1,000 mg PO DAILY nifedipine 30 mg tablet extended release 30 mg PO DAILY Patient Comments: TAKE 1 TABLET BY MOUTH ONCE DAILY DO NOT CRUSH, CHEW, OR SPLIT prochlorperazine maleate 10 mg tablet 10 mg PO Q6HP PRN (Reason: Nausea And Vomiting) lisinopril 40 mg tablet 40 mg PO DAILY Patient Comments: TAKE 1 TABLET BY MOUTH ONCE DAILY Breztri Aerosphere 160-9-4.8 mcg/actuation HFA aerosol inhaler 2 puff INHALATION BID Patient Comments: INHALE 2 PUFFS BY MOUTH TWICE DAILY Referrals Follow up/Referrals: Lona Mc [Primary Care Provider] - See instructions Activity Restrictions/Add. Instructions Additional Instructions/Restrictions: [facility] Dr. Muñoz Clinical Impressions Clinical Impression: Acute on chronic respiratory failure with hypoxia and hypercapnia, Sepsis without septic shock, Compressive atelectasis, Pleural effusion Pneumonia Qualifiers: Pneumonia type: due to unspecified organism Laterality: bilateral Stand Alone Forms Stand Alone Forms: Transfer Record - ED Print Language Print Language: Pashto Discharge ED Provider: Jose Staples General Adult HPI <TAMMY Couch - Last Filed: 07/05/24 20:32> General Chief complaint: Upper Respiratory Infection Stated complaint: +pneumonia-SOA Time Seen by Provider: 07/05/24 13:14 Mode of Arrival: Wheelchair Source of Information: Patient and Relative Description of Symptoms (Recalled from ER Triage Doc. by RN): Pt presents for evaluations of concerns for worsening pneumonia. Pt was diagnosed with pneumonia 2 days ago and started on an antibiotic. Pt has had a worsening cough. Pt is on 5L of oxygen baseline. Family states oxygen was reading in the 60s on their home pulse ox. Pt noted to be 97% History of Present Illness HPI narrative: Patient presents for evaluation dyspnea and hypoxia. Patient has a known past medical history of squamous cell carcinoma currently undergoing treatment at the [facility] with Keytruda infusions. She patient was recently diagnosed with pneumonia by her PCPs office 2 days ago and started on an antibiotic unfortunately are unsure which one. At baseline patient wears 4 L by nasal cannula and they are home O2 monitor showed that she was satting in the 60s. She has had increasing cough dyspnea and oxygen requirements and hence came to the emergency department for evaluation. Patient herself reports that she is short of breath even sitting still however she denies fever chills hemoptysis hematochezia melena nausea vomiting diarrhea. Related Data Home Medications ?Medication ?Instructions ?Recorded ?Confirmed buspirone 10 mg tablet 10 mg PO BID 09/21/17 07/05/24 omeprazole 20 mg capsule,delayed 20 mg PO DAILY 09/21/17 07/05/24 release albuterol sulfate 2.5 mg/3 mL 2.5 mg inhalation Q4HP PRN Wheezing 04/13/22 07/05/24 (0.083 %) solution for nebulization alendronate 70 mg tablet 70 mg PO WEEKLY 04/13/22 07/05/24 sodium chloride 1,000 mg soluble 1,000 mg PO DAILY 07/31/22 07/05/24 tablet budesonide 160 mcg-glycopyr 9 2 puff inhalation BID 07/05/24 07/05/24 mcg-formot 4.8 mcg/actuation HFA inhaler (Breztri Aerosphere) lisinopril 40 mg tablet 40 mg PO DAILY 07/05/24 07/05/24 nifedipine 30 mg tablet,extended 30 mg PO DAILY 07/05/24 07/05/24 release prochlorperazine maleate 10 mg 10 mg PO Q6HP PRN Nausea And 07/05/24 07/05/24 tablet Vomiting Previous Rx's ?Medication ?Instructions ?Recorded cefdinir 300 mg capsule 300 mg PO BID 3 days #6 caps 08/25/22 Allergies Allergy/AdvReac Type Severity Reaction Status Date / Time No Known Allergies Allergy Verified 06/21/24 13:27 [facility] <TAMMY Couch - Last Filed: 07/05/24 20:32> [facility] Disclaimer: The information contained in this section may have been updated after the patient was seen, as this information can be updated by other users. Medical History Falls Malnutrition Cerebral infarction COPD (chronic obstructive pulmonary disease) Emphysema of lung Closed hip fracture Tobacco dependence in remission Closed right hip fracture Osteoporosis GERD (gastroesophageal reflux disease) Anxiety Cataract Hyponatremia Hypertension COPD (chronic obstructive pulmonary disease) Surgical History History of mandibular surgery H/O right wrist surgery Family History Other Heart attack Hyperlipidemia Hypertension Social History Smoking Status: Former smoker tobacco type: cigarettes alcohol intake: never substance use type: denies use current occupational status: retired Travel in the last 8 weeks: None household members: family housing: house marital status: number of children: 4 Have you lived/traveled outside [place] in past 30 days?: No Contact w/someone who lives/traveled outside US past 30 days?: No Exposure to someone with infectious disease in past 14 days?: No Do you have a fever (greater than 100.4 F or 38 C)?: No Have you tested positive for COVID-19: No Exposed to someone with COVID-19 in past 14 days?: No Do you have a sore throat?: No Do you have a cough?: No Do you have any weakness?: No Do you have any diarrhea?: No Are you experiencing any unusual bleeding?: No Do you have any muscle aches/pain?: No Do you have any abdominal pain?: No Are you experiencing loss of taste or smell?: No Other Medical History Have you received the Flu Vaccine for this season: No Have you received the Pneumonia Vaccine: Yes <TAMMY Couch - Last Filed: 07/05/24 20:32> ROS Obtained: Yes Systems reviewed as appropriate & no additional complaints except as documented Physical Exam <TAMMY Couch - Last Filed: 07/05/24 20:32> General General appearance: alert and in no apparent distress Respiratory Respiratory exam: Present respiratory distress, accessory muscle use and prolonged expiratory phase; Absent normal lung sounds bilaterally Cardiovascular Cardiovascular exam: Present regular rate Neurological Exam Neurological exam: Present alert and oriented X3 Medical Decision Making <TAMMY Couch - Last Filed: 07/05/24 20:32> Medical Records Medical records reviewed: Yes I reviewed the patient's medical records. Screening: Per USPSTF and CDC recommendations, given the prevalence of disease in our region, it is our hospital?s policy to screen for HIV and viral Hepatitis for all patients aged 18 and over and those with ongoing risk factors. Jem Inquiry Pt receiving controlled substance: No Vital Signs: 07/05/24 13:07 07/05/24 13:46 07/05/24 14:00 Temperature 98.7 F Temperature Source Oral Pulse Rate 96 H 92 H Pulse Rate [Right] 95 H Respiratory Rate 18 21 22 Blood Pressure 118/58 L 120/58 L Blood Pressure [Right Arm] 119/53 L Blood Pressure Mean [Right Arm] 75 Blood Pressure Source Blood Pressure Source [Right Arm] Automatic Cuff Blood Pressure Position Blood Pressure Position [Right Arm] Sitting 02 Sat by Pulse Oximetry 99 96 98 Oxygen Delivery Method Nasal Cannula Nasal Cannula Nasal Cannula Oxygen Flow Rate (LPM) 5 Fraction of Inspired Oxygen 07/05/24 14:21 07/05/24 14:24 07/05/24 14:30 Temperature Temperature Source Pulse Rate 107 H 98 H 106 H Pulse Rate [Right] Respiratory Rate 18 22 23 Blood Pressure 120/58 L 122/67 135/63 Blood Pressure [Right Arm] Blood Pressure Mean [Right Arm] Blood Pressure Source Automatic Cuff Blood Pressure Source [Right Arm] Blood Pressure Position Sitting Blood Pressure Position [Right Arm] 02 Sat by Pulse Oximetry 78 L 89 L 86 L Oxygen Delivery Method Nasal Cannula Nasal Cannula Nasal Cannula Oxygen Flow Rate (LPM) 6 Fraction of Inspired Oxygen 07/05/24 14:45 07/05/24 14:49 07/05/24 14:55 Temperature Temperature Source Pulse Rate 102 H 103 H Pulse Rate [Right] Respiratory Rate 21 22 Blood Pressure 129/63 Blood Pressure [Right Arm] Blood Pressure Mean [Right Arm] Blood Pressure Source Blood Pressure Source [Right Arm] Blood Pressure Position Blood Pressure Position [Right Arm] 02 Sat by Pulse Oximetry 97 69 L Oxygen Delivery Method Nasal Cannula BiPAP Oxygen Flow Rate (LPM) 35 Fraction of Inspired Oxygen 30 07/05/24 15:00 07/05/24 15:00 07/05/24 15:15 Temperature Temperature Source Pulse Rate 102 H 103 H 109 H Pulse Rate [Right] Respiratory Rate 20 24 21 Blood Pressure 129/63 132/66 131/68 Blood Pressure [Right Arm] Blood Pressure Mean [Right Arm] Blood Pressure Source Automatic Cuff Blood Pressure Source [Right Arm] Blood Pressure Position Sitting Blood Pressure Position [Right Arm] 02 Sat by Pulse Oximetry 94 L 93 L 100 Oxygen Delivery Method BiPAP Nasal Cannula Nasal Cannula Oxygen Flow Rate (LPM) 100 Fraction of Inspired Oxygen 07/05/24 15:30 07/05/24 15:45 07/05/24 15:47 Temperature Temperature Source Pulse Rate 108 H 89 95 H Pulse Rate [Right] Respiratory Rate 24 20 20 Blood Pressure 120/57 L 116/55 L 116/55 L Blood Pressure [Right Arm] Blood Pressure Mean [Right Arm] Blood Pressure Source Automatic Cuff Blood Pressure Source [Right Arm] Blood Pressure Position Sitting Blood Pressure Position [Right Arm] 02 Sat by Pulse Oximetry 100 100 100 Oxygen Delivery Method BiPAP BiPAP BiPAP Oxygen Flow Rate (LPM) 90 Fraction of Inspired Oxygen 07/05/24 16:00 07/05/24 16:09 07/05/24 16:11 Temperature Temperature Source Pulse Rate 98 H 105 H Pulse Rate [Right] Respiratory Rate 18 20 Blood Pressure 123/62 123/62 Blood Pressure [Right Arm] Blood Pressure Mean [Right Arm] Blood Pressure Source Automatic Cuff Blood Pressure Source [Right Arm] Blood Pressure Position Sitting Blood Pressure Position [Right Arm] 02 Sat by Pulse Oximetry 100 89 L Oxygen Delivery Method Room Air BiPAP Oxygen Flow Rate (LPM) 50 Fraction of Inspired Oxygen 50 07/05/24 16:15 07/05/24 16:25 07/05/24 16:30 Temperature Temperature Source Pulse Rate 103 H 118 H Pulse Rate [Right] Respiratory Rate 28 H 22 Blood Pressure 138/64 115/74 Blood Pressure [Right Arm] Blood Pressure Mean [Right Arm] Blood Pressure Source Blood Pressure Source [Right Arm] Blood Pressure Position Blood Pressure Position [Right Arm] 02 Sat by Pulse Oximetry 87 L 96 Oxygen Delivery Method BiPAP Oxygen Flow Rate (LPM) Fraction of Inspired Oxygen 55 07/05/24 16:31 07/05/24 16:45 07/05/24 17:00 Temperature Temperature Source Pulse Rate 115 H 119 H 92 H Pulse Rate [Right] Respiratory Rate 20 26 H 19 Blood Pressure 115/74 129/73 117/55 L Blood Pressure [Right Arm] Blood Pressure Mean [Right Arm] Blood Pressure Source Automatic Cuff Blood Pressure Source [Right Arm] Blood Pressure Position Sitting Blood Pressure Position [Right Arm] 02 Sat by Pulse Oximetry 96 99 99 Oxygen Delivery Method BiPAP BiPAP BiPAP Oxygen Flow Rate (LPM) 55 Fraction of Inspired Oxygen 07/05/24 17:15 07/05/24 17:30 07/05/24 17:45 Temperature Temperature Source Pulse Rate 96 H 98 H 101 H Pulse Rate [Right] Respiratory Rate 21 17 22 Blood Pressure 112/59 L 117/68 133/69 Blood Pressure [Right Arm] Blood Pressure Mean [Right Arm] Blood Pressure Source Blood Pressure Source [Right Arm] Blood Pressure Position Blood Pressure Position [Right Arm] 02 Sat by Pulse Oximetry 98 99 100 Oxygen Delivery Method BiPAP BiPAP BiPAP Oxygen Flow Rate (LPM) Fraction of Inspired Oxygen 07/05/24 17:57 07/05/24 18:00 07/05/24 18:07 Temperature Temperature Source Pulse Rate 71 99 H Pulse Rate [Right] Respiratory Rate 22 28 H Blood Pressure 133/69 134/68 Blood Pressure [Right Arm] Blood Pressure Mean [Right Arm] Blood Pressure Source Automatic Cuff Blood Pressure Source [Right Arm] Blood Pressure Position Sitting Blood Pressure Position [Right Arm] 02 Sat by Pulse Oximetry 92 L 89 L Oxygen Delivery Method BiPAP BiPAP Oxygen Flow Rate (LPM) 100 Fraction of Inspired Oxygen 100 07/05/24 18:15 07/05/24 18:31 07/05/24 18:34 Temperature Temperature Source Pulse Rate 95 H 103 H 105 H Pulse Rate [Right] Respiratory Rate 31 H 33 H 22 Blood Pressure 127/62 133/69 133/69 Blood Pressure [Right Arm] Blood Pressure Mean [Right Arm] Blood Pressure Source Automatic Cuff Blood Pressure Source [Right Arm] Blood Pressure Position Sitting Blood Pressure Position [Right Arm] 02 Sat by Pulse Oximetry 86 L 85 L 86 L Oxygen Delivery Method BiPAP BiPAP BiPAP Oxygen Flow Rate (LPM) Fraction of Inspired Oxygen 07/05/24 18:57 07/05/24 19:00 07/05/24 19:00 Temperature Temperature Source Pulse Rate 103 H 97 H 127 H Pulse Rate [Right] Respiratory Rate 38 H 24 25 H Blood Pressure 135/68 135/68 125/77 Blood Pressure [Right Arm] Blood Pressure Mean [Right Arm] Blood Pressure Source Automatic Cuff Blood Pressure Source [Right Arm] Blood Pressure Position Sitting Blood Pressure Position [Right Arm] 02 Sat by Pulse Oximetry 84 L 100 92 L Oxygen Delivery Method Mechanical Ventilation Oxygen Flow Rate (LPM) Fraction of Inspired Oxygen 07/05/24 19:04 07/05/24 19:05 07/05/24 19:10 Temperature Temperature Source Pulse Rate 119 H 117 H 104 H Pulse Rate [Right] Respiratory Rate 18 18 25 H Blood Pressure 138/81 143/78 H 149/83 H Blood Pressure [Right Arm] Blood Pressure Mean [Right Arm] Blood Pressure Source Blood Pressure Source [Right Arm] Blood Pressure Position Blood Pressure Position [Right Arm] 02 Sat by Pulse Oximetry 100 100 97 Oxygen Delivery Method Oxygen Flow Rate (LPM) Fraction of Inspired Oxygen 07/05/24 19:15 07/05/24 19:20 07/05/24 19:25 Temperature Temperature Source Pulse Rate 111 H 121 H 111 H Pulse Rate [Right] Respiratory Rate 17 15 18 Blood Pressure 146/82 H 143/81 H 117/64 Blood Pressure [Right Arm] Blood Pressure Mean [Right Arm] Blood Pressure Source Blood Pressure Source [Right Arm] Blood Pressure Position Blood Pressure Position [Right Arm] 02 Sat by Pulse Oximetry 99 100 100 Oxygen Delivery Method Oxygen Flow Rate (LPM) Fraction of Inspired Oxygen 07/05/24 19:29 07/05/24 19:30 07/05/24 19:30 Temperature Temperature Source Pulse Rate 110 H 111 H Pulse Rate [Right] Respiratory Rate 19 24 17 Blood Pressure 117/64 118/69 Blood Pressure [Right Arm] Blood Pressure Mean [Right Arm] Blood Pressure Source Automatic Cuff Blood Pressure Source [Right Arm] Blood Pressure Position Sitting Blood Pressure Position [Right Arm] 02 Sat by Pulse Oximetry 80 L 100 Oxygen Delivery Method Mechanical Ventilation Oxygen Flow Rate (LPM) Fraction of Inspired Oxygen 80 07/05/24 19:35 07/05/24 19:40 07/05/24 19:46 Temperature Temperature Source Pulse Rate 112 H 111 H 105 H Pulse Rate [Right] Respiratory Rate 17 17 15 Blood Pressure 133/72 131/97 H 110/60 Blood Pressure [Right Arm] Blood Pressure Mean [Right Arm] Blood Pressure Source Blood Pressure Source [Right Arm] Blood Pressure Position Blood Pressure Position [Right Arm] 02 Sat by Pulse Oximetry 98 100 100 Oxygen Delivery Method Oxygen Flow Rate (LPM) Fraction of Inspired Oxygen 07/05/24 19:50 07/05/24 19:53 07/05/24 19:55 Temperature Temperature Source Pulse Rate 103 H 104 H 100 H Pulse Rate [Right] Respiratory Rate 18 18 18 Blood Pressure 117/62 117/62 111/57 L Blood Pressure [Right Arm] Blood Pressure Mean [Right Arm] Blood Pressure Source Blood Pressure Source [Right Arm] Blood Pressure Position Blood Pressure Position [Right Arm] 02 Sat by Pulse Oximetry 100 100 100 Oxygen Delivery Method Mechanical Ventilation Oxygen Flow Rate (LPM) Fraction of Inspired Oxygen 07/05/24 20:00 07/05/24 20:05 07/05/24 20:09 Temperature Temperature Source Pulse Rate 101 H 109 H 113 H Pulse Rate [Right] Respiratory Rate 16 19 16 Blood Pressure 120/67 112/70 124/72 Blood Pressure [Right Arm] Blood Pressure Mean [Right Arm] Blood Pressure Source Blood Pressure Source [Right Arm] Blood Pressure Position Blood Pressure Position [Right Arm] 02 Sat by Pulse Oximetry 97 96 97 Oxygen Delivery Method Oxygen Flow Rate (LPM) Fraction of Inspired Oxygen 07/05/24 20:15 07/05/24 20:20 07/05/24 20:25 Temperature Temperature Source Pulse Rate 100 H 98 H 93 H Pulse Rate [Right] Respiratory Rate 18 18 18 Blood Pressure 107/55 L 97/53 L 94/53 L Blood Pressure [Right Arm] Blood Pressure Mean [Right Arm] Blood Pressure Source Blood Pressure Source [Right Arm] Blood Pressure Position Blood Pressure Position [Right Arm] 02 Sat by Pulse Oximetry 98 99 99 Oxygen Delivery Method Oxygen Flow Rate (LPM) Fraction of Inspired Oxygen 07/05/24 20:30 07/05/24 20:35 07/05/24 20:35 Temperature Temperature Source Pulse Rate 94 H 94 H Pulse Rate [Right] Respiratory Rate 18 16 16 Blood Pressure 96/52 L 93/56 L Blood Pressure [Right Arm] Blood Pressure Mean [Right Arm] Blood Pressure Source Blood Pressure Source [Right Arm] Blood Pressure Position Blood Pressure Position [Right Arm] 02 Sat by Pulse Oximetry 96 95 Oxygen Delivery Method Oxygen Flow Rate (LPM) Fraction of Inspired Oxygen 45 07/05/24 20:39 07/05/24 21:21 Temperature 99.8 F H Temperature Source Axillary Pulse Rate 91 H 86 Pulse Rate [Right] Respiratory Rate 16 16 Blood Pressure 96/52 L 108/54 L Blood Pressure [Right Arm] Blood Pressure Mean [Right Arm] Blood Pressure Source Automatic Cuff Blood Pressure Source [Right Arm] Blood Pressure Position Supine Blood Pressure Position [Right Arm] 02 Sat by Pulse Oximetry 95 Oxygen Delivery Method Mechanical Ventilation Oxygen Flow Rate (LPM) Fraction of Inspired Oxygen Lab Data Lab results reviewed: Yes I reviewed the patient's lab results. Lab Results 07/05/24 13:20: WBC 22.8 H*, RBC 3.39 L, Hgb 9.7 L, Hct 32.4 L, MCV 95.6, MCH 28.6, MCHC 29.9 L, RDW 15.9, Plt Count 409, MPV 10.5 H, Neut % (Auto) 91.6 H, L ymph % (Auto) 2.8 L, [place] % (Auto) 4.4, Eos % (Auto) 0.1, Baso % (Auto) 0.3, N eut # (Auto) 20.9 H, Lymph # (Auto) 0.6 L, [place] # (Auto) 1.0, Eos # (Auto) 0.0, Baso # (Auto) 0.1, Total Counted 100, Neutrophils % (Manual) 95 H, Lymphocytes % (Manual) 3 L, Monocytes % (Manual) 2, Sodium 139, Potassium 4.4, Chloride 93 L, Carbon Dioxide 36 H, Anion Gap 14.4, BUN 21 H, Creatinine 0.60, Estimated Creat Clear 32, Estimated GFR 97, Est GFR ( Amer) 118, Glucose 185 H, Lactate 1.0, Calcium 9.0, Total Bilirubin 0.3, AST 24, ALT 18, Alkaline Phosphatase 113, Troponin I 0.01, NT-Pro-B Natriuret Pep 3020 H, Total Protein 7.4, Albumin 3.3 L , Globulin 4.1 H, Albumin/Globulin Ratio 0.8 L, Procalcitonin 0.093 07/05/24 13:29: VBG pH 7.36, VBG pCO2 69.8 H, VBG pO2 59.3 H, VBG HCO3 38.2 H, V BG Total CO2 40.3 H, VBG O2 Saturation 89.8 H, VBG Base Excess 12.7 H, VBG Lactic Acid 1.2 07/05/24 13:53: Chlamy pneumoniae PCR Not detected, Adenovirus (PCR) Not detected, B. pertussis DNA (PCR) Not detected, Coronavirus OC43 (PCR) Not detected, Coronavirus HKU1 (PCR) Not detected, Coronavirus 229E (PCR) Not detected, SARS-CoV-2 (PCR) Not detected, Coronavirus NL63 (PCR) Not detected, Human Metapneumovir PCR Not detected, Influenza A (H1) PCR Not detected, Influ A (H1N1/09) PCR Not detected, Influenza A (H3) PCR Not detected, Influenza Type A (PCR) Not detected, Influenza Type B (PCR) Not detected, M. pneumoniae (PCR) Not detected, Parainfluenza 1 (PCR) Not detected, Parainfluenza 2 (PCR) Not detected, Parainfluenza 3 (PCR) Not detected, Parainfluenza 4 (PCR) Not detected, RSV (PCR) Not detected, Entero/Rhino (PCR) Not detected 07/05/24 14:27: Urine Color Yellow, Urine Appearance Clear, Urine pH 6.0, Ur Specific [place] 1.015, Urine Protein Negative, Urine Glucose (UA) Negative, Urine Ketones Negative, Urine Blood Negative, Urine Nitrate Negative, Urine Bilirubin Negative, Urine Urobilinogen 0.2, Ur Leukocyte Esterase Negative, Urine RBC None, Urine WBC 5-10, Ur Squamous Epith Cells 20-50, Urine Bacteria Trace 07/05/24 16:51: Specimen Source Right radial, O2 % 70%, ABG pH 7.33 L, ABG pCO2 85.4 H, ABG pO2 52.5 L, ABG HCO3 43.9 H, ABG Total CO2 46.5 H, ABG O2 Saturation 86 L*, ABG Base Excess 18.0 H, [place] Test Acceptable, Vent Rate 20 07/05/24 19:44: Troponin I < 0.01 07/05/24 19:58: Specimen Source Right radial, O2 % 60, ABG pH 7.50 H, ABG pCO2 47.8 H, ABG pO2 135.7 H, ABG HCO3 36.1 H, ABG Total CO2 37.6 H, ABG O2 Saturation 99, ABG Base Excess 12.9 H, [place] Test Non applicable, Vent Rate 18, Tidal Volume 400, PEEP 5 07/05/24 13:20 07/05/24 13:20 Orders (Tests/Meds): ED MEDICATIONS Discontinued Medications Generic Name Dose Route Start Last Admin Trade Name Freq PRN Reason Stop Dose Admin Albuterol/Ipratropium 9 ml 07/05/24 13:27 07/05/24 13:39 Ipratropium/Albuterol 3 Ml Critical [facility] hospital 07/05/24 13:28 9 ml ONCE ONE Administration Albuterol/Ipratropium 9 ml 07/05/24 14:29 07/05/24 19:38 Ipratropium/Albuterol 3 Ml Critical access hospital 07/05/24 14:30 Not Given ONCE ONE Dexamethasone Sodium Phosphate 10 mg 07/05/24 13:46 07/05/24 13:59 Dexamethasone 4mg/Ml 5ml Mdv IV 07/05/24 13:47 10 mg ONCE ONE Administration Etomidate 20 mg 07/05/24 18:59 07/05/24 19:35 Etomidate 40mg/20ml Vial IV 07/05/24 19:00 20 mg ONCE ONE Administration Furosemide 40 mg 07/05/24 13:28 07/05/24 13:40 Furosemide 40mg/4ml Vial IV 07/05/24 13:29 40 mg ONCE ONE Administration Piperacillin Sod/Tazobactam 50 mls @ 100 mls/hr 07/05/24 14:01 07/05/24 14:46 Sod 3.375 gm/ Sodium Chloride IV 07/05/24 14:30 100 mls/hr ONCE ONE Administration Vancomycin HCl 750 mg/ Sodium 250 mls @ 125 mls/hr 07/05/24 14:15 07/05/24 14:46 Chloride IV 07/05/24 16:14 125 mls/hr ONCE ONE Administration Propofol 100 mls @ 2.531 mls/hr 07/05/24 19:06 07/05/24 20:35 Diprivan 10mg/Ml 100ml Bottle IV 08/04/24 19:05 30 mcg/kg/min .Q24H SUSAN 7.59 mls/hr Titration Protocol 10 MCG/KG/MIN Sodium Chloride 1,000 mls @ 999 mls/hr 07/05/24 20:11 07/05/24 20:24 Sod Chlor 0.9% 1000ml Bag IV 07/05/24 21:11 999 mls/hr .Q1H1M ONE Administration Iopamidol 75 ml 07/05/24 14:13 07/05/24 14:18 Iopamidol-370 (76%);100ml Bottle IV 07/05/24 14:14 75 ml ONCE ONE Administration Miscellaneous 1 each 07/05/24 14:00 07/05/24 14:37 Vancomycin Consult Request NOTAPPLIC 08/04/24 13:59 1 each CONSULT PHARMACY SUSAN Administration Sodium Chloride 10 ml 07/05/24 13:24 Sodium Chloride 0.9% 10ml Flush Syringe IV 08/04/24 13:23 NEEDED PRN Maintain IV Site Sodium Chloride 3 ml 07/05/24 13:28 Sodium Chloride 3% 15ml Neb IH 08/04/24 13:27 ONCE PRN INDUCE SPUTUM COLLECTION Sodium Chloride 50 ml 07/05/24 14:13 07/05/24 14:17 0.9 % Sodium Chloride 50 Ml Vial IV 07/05/24 14:14 50 ml ONCE ONE Administration Sodium Chloride 10 ml 07/05/24 14:13 07/05/24 14:18 Sodium Chloride 0.9% 10ml Syr (Rad Only) IV 07/05/24 14:14 10 ml ONCE ONE Administration Sodium Chloride 3 ml 07/05/24 19:31 Sodium Chloride 3% 15ml Neb IH 08/04/24 19:30 ONCE PRN INDUCE SPUTUM COLLECTION Succinylcholine Chloride 50 mg 07/05/24 18:59 07/05/24 19:36 Succinylcholine 20mg/Ml 10 Ml Mdv IV 07/05/24 19:00 50 mg ONCE ONE Administration ORDERS Category Date Time Status CT angio chest PE protocol Stat Cat Scan 07/05/24 13:27 Completed CXR --portable [XR chest portable] Stat Exams 07/05/24 19:07 Completed KUB (single view) [XR KUB] Stat Exams 07/05/24 19:18 Completed XR chest portable Stat Exams 07/05/24 13:22 Completed Complete Blood Count Auto Diff Stat Lab 07/05/24 13:20 Completed Comprehensive Metabolic Panel Stat Lab 07/05/24 13:20 Completed Full Resp Panel w/COVID ([facility]) Routine Lab 07/05/24 13:53 Completed Lactic Acid Stat Lab 07/05/24 13:20 Completed NT Pro Brain Natriuretic Pep. Stat Lab 07/05/24 13:20 Completed Procalcitonin Stat Lab 07/05/24 13:20 Completed Troponin I Q3H Lab 07/05/24 19:44 Completed Troponin I Stat Lab 07/05/24 13:20 Completed UA [Urinalysis and Microscopic] Stat Lab 07/05/24 14:27 Completed Blood Culture Stat Micro 07/05/24 14:36 Received Sputum Culture & Gram Stain Stat Micro 07/05/24 19:12 Results ABG [Arterial Blood Gas] Stat RT 07/05/24 16:51 Completed ABG [Arterial Blood Gas] Timed RT 07/05/24 19:58 Completed VBG [Venous Blood Gas] Stat RT 07/05/24 13:29 Completed Tissue Perfus/Sepsis Re-Eval Sepsis Re-Evaluation Performed: Yes Date Performed: 07/05/24 Time Performed: 16:00 HEART Score History (anamnesis): Slightly suspicious ECG: Non-specific disturbance Age: >65 years Risk factors: 3 or more risk factors Troponin: </= normal limit HEART Score: 5 Medical Decision Narrative: In summary patient is a 78-year-old female who presents to the emergency department for evaluation of dyspnea and hypoxia. Patient is initially normotensive at 119/53 with a heart rate of 95 normal sinus rhythm on the bedside monitor breathing 18 times a minute satting at 75% on her 4 L by nasal cannula that corrects to 99% initially on 5 L upon arrival, afebrile at 98.7. Physical exam is remarkable for a very petite but cachectic appearing 78-year-old female who appears to be chronically ill. Patient has increased work of breathing tachypnea accessory muscle use. Auscultation the breath sounds reveals a significantly diminished and absent breath sounds in the right lower lung field with rhonchi in the upper lung shaver bilaterally and in the lower lung shaver. Patient has no dependent edema. Heart sounds are S1 is 2 regular rate rhythm no murmurs gallops rubs or thrills.. Differential diagnosis includes PE pneumonia postobstructive pneumonia pleural effusion worsening lung cancer etc. Initial workup will be conducted with hematologic labs blood cultures VBG plain film chest x-ray CT PE protocol. Initial interventions include DuoNeb Decadron and Lasix. Initial workup reviewed by me and her hematologic labs are significant for white count of 22.8 hemoglobin hematocrit 9.7 and 32.4 respectively with an absolute neutrophil count of 20.9, VBG shows a pH of 7.36 pCO2 of 69.8 with a VBG lactic acid of 1.2, troponins normal at 0.01 NT proBNP is 3020 procalcitonin 0.093 urinalysis is bland full respiratory is negative for any active viral pathogens in my informal interpretation of her CT PE protocol does not show any evidence of thrombus but shows significant right pleural effusion with total collapse of the middle and right lower lobe and a small left pleural effusion.. Upon repeat evaluation patient is now desatting into the 80s on 6 L and given her blood gases decision was made to transition to BiPAP. Initial BiPAP settings were 16/8. Patient was started on broad-spectrum antibiotics after blood cultures sputum cultures obtained.. Given this I had an initial interactive discussion with the [facility] regarding patient presentation [place] and findings and they do not have any beds currently and she has been waitlisted. Upon reevaluation at 1700 hrs. patient was desatting down into the 60s on BiPAP but was only on 35% FiO2. I increased her to 100% and she slowly preoxygenated to 100%. Upon reassessment at 1800 hrs. however patient's ABG showed a increasing hypercarbia. Patient felt better and interactive discussion will and shared decision making discussion was had with the patient and her family regarding advanced directives and intubation. Patient currently is a full code and was agreeable to intubation if required. Approximately 30 minutes later after BiPAP adjustments of 20/8 and 100% FiO2 patient still desatting down into the 80s. Dr. Thomson had a interactive discussion with the family regarding intubation at this point she was made a DNR but was okay for intubation. Please see her intubation note below for full details but patient was excessively intubated. I then had an interactive discussion again with the [facility] regarding patient's status change. They have agreed that she is an ICU admission and plan to move her to the ICU when a bed becomes available but they cannot give a determine time. Given that [place] [facility] [place] Dr. Muñoz. DO Berto: I was consulted by the CARINA, and we discussed the complexity of the problems being addressed. I approved the treatment and management plan for this patient's care in the emergency department, thus performing a substantive portion of the medical decision making. Patient unfortunately had decompensated respiratory status on BiPAP at my time of arrival at 1500. She has postobstructive pneumonia in the setting of lung cancer, sepsis secondary to pneumonia, acute on chronic respiratory failure. Despite being on maximal BiPAP settings, she continued to have worsening respiratory acidosis as well as hypoxia with an O2 saturation in the mid 80s on 20/8 100% FiO2 on BiPAP. Given this, after extensive goals of care discussion with the family, patient was intubated. They advised they did want her intubated for her respiratory failure, but they do not want chest compressions if her heart were to stop. Patient confirmed this prior to intubation. I did explain to her that she may never come off the ventilator, but she is still requesting to be put on the ventilator. CODE STATUS was changed to DNR/okay to intubate. Patient has been treated here with broad-spectrum IV antibiotics. She was stabilized on the ventilator with propofol for maintenance of sedation. She tolerated this well with no immediate complications. I was able to gradually wean down her FiO2 on the vent to 60%. Sputum culture was sent and is pending. Patient was waitlisted for bed at where she follows for cancer care, however they do not have a bed and our hospitalist does not feel comfortable admitting her here given her respiratory status and the fact we do not have pulmonology. We then called , who graciously except the patient for transfer. Please see CARINA note for further documentation of this. Flight crew transportation was arranged, the patient was ultimately transferred in stabilized condition. Sachi Thomson DO <Sachi Thomson DO - Last Filed: 07/05/24 20:01> Vital Signs: 07/05/24 13:07 07/05/24 13:46 07/05/24 14:00 Temperature 98.7 F Temperature Source Oral Pulse Rate 96 H 92 H Pulse Rate [Right] 95 H Respiratory Rate 18 21 22 Blood Pressure 118/58 L 120/58 L Blood Pressure [Right Arm] 119/53 L Blood Pressure Mean [Right Arm] 75 Blood Pressure Source Blood Pressure Source [Right Arm] Automatic Cuff Blood Pressure Position Blood Pressure Position [Right Arm] Sitting 02 Sat by Pulse Oximetry 99 96 98 Oxygen Delivery Method Nasal Cannula Nasal Cannula Nasal Cannula Oxygen Flow Rate (LPM) 5 Fraction of Inspired Oxygen 07/05/24 14:21 07/05/24 14:24 07/05/24 14:30 Temperature Temperature Source Pulse Rate 107 H 98 H 106 H Pulse Rate [Right] Respiratory Rate 18 22 23 Blood Pressure 120/58 L 122/67 135/63 Blood Pressure [Right Arm] Blood Pressure Mean [Right Arm] Blood Pressure Source Automatic Cuff Blood Pressure Source [Right Arm] Blood Pressure Position Sitting Blood Pressure Position [Right Arm] 02 Sat by Pulse Oximetry 78 L 89 L 86 L Oxygen Delivery Method Nasal Cannula Nasal Cannula Nasal Cannula Oxygen Flow Rate (LPM) 6 Fraction of Inspired Oxygen 07/05/24 14:45 07/05/24 14:49 07/05/24 14:55 Temperature Temperature Source Pulse Rate 102 H 103 H Pulse Rate [Right] Respiratory Rate 21 22 Blood Pressure 129/63 Blood Pressure [Right Arm] Blood Pressure Mean [Right Arm] Blood Pressure Source Blood Pressure Source [Right Arm] Blood Pressure Position Blood Pressure Position [Right Arm] 02 Sat by Pulse Oximetry 97 69 L Oxygen Delivery Method Nasal Cannula BiPAP Oxygen Flow Rate (LPM) 35 Fraction of Inspired Oxygen 30 07/05/24 15:00 07/05/24 15:00 07/05/24 15:15 Temperature Temperature Source Pulse Rate 102 H 103 H 109 H Pulse Rate [Right] Respiratory Rate 20 24 21 Blood Pressure 129/63 132/66 131/68 Blood Pressure [Right Arm] Blood Pressure Mean [Right Arm] Blood Pressure Source Automatic Cuff Blood Pressure Source [Right Arm] Blood Pressure Position Sitting Blood Pressure Position [Right Arm] 02 Sat by Pulse Oximetry 94 L 93 L 100 Oxygen Delivery Method BiPAP Nasal Cannula Nasal Cannula Oxygen Flow Rate (LPM) 100 Fraction of Inspired Oxygen 07/05/24 15:30 07/05/24 15:45 07/05/24 15:47 Temperature Temperature Source Pulse Rate 108 H 89 95 H Pulse Rate [Right] Respiratory Rate 24 20 20 Blood Pressure 120/57 L 116/55 L 116/55 L Blood Pressure [Right Arm] Blood Pressure Mean [Right Arm] Blood Pressure Source Automatic Cuff Blood Pressure Source [Right Arm] Blood Pressure Position Sitting Blood Pressure Position [Right Arm] 02 Sat by Pulse Oximetry 100 100 100 Oxygen Delivery Method BiPAP BiPAP BiPAP Oxygen Flow Rate (LPM) 90 Fraction of Inspired Oxygen 07/05/24 16:00 07/05/24 16:09 07/05/24 16:11 Temperature Temperature Source Pulse Rate 98 H 105 H Pulse Rate [Right] Respiratory Rate 18 20 Blood Pressure 123/62 123/62 Blood Pressure [Right Arm] Blood Pressure Mean [Right Arm] Blood Pressure Source Automatic Cuff Blood Pressure Source [Right Arm] Blood Pressure Position Sitting Blood Pressure Position [Right Arm] 02 Sat by Pulse Oximetry 100 89 L Oxygen Delivery Method Room Air BiPAP Oxygen Flow Rate (LPM) 50 Fraction of Inspired Oxygen 50 07/05/24 16:15 07/05/24 16:25 07/05/24 16:30 Temperature Temperature Source Pulse Rate 103 H 118 H Pulse Rate [Right] Respiratory Rate 28 H 22 Blood Pressure 138/64 115/74 Blood Pressure [Right Arm] Blood Pressure Mean [Right Arm] Blood Pressure Source Blood Pressure Source [Right Arm] Blood Pressure Position Blood Pressure Position [Right Arm] 02 Sat by Pulse Oximetry 87 L 96 Oxygen Delivery Method BiPAP Oxygen Flow Rate (LPM) Fraction of Inspired Oxygen 55 07/05/24 16:31 07/05/24 16:45 07/05/24 17:00 Temperature Temperature Source Pulse Rate 115 H 119 H 92 H Pulse Rate [Right] Respiratory Rate 20 26 H 19 Blood Pressure 115/74 129/73 117/55 L Blood Pressure [Right Arm] Blood Pressure Mean [Right Arm] Blood Pressure Source Automatic Cuff Blood Pressure Source [Right Arm] Blood Pressure Position Sitting Blood Pressure Position [Right Arm] 02 Sat by Pulse Oximetry 96 99 99 Oxygen Delivery Method BiPAP BiPAP BiPAP Oxygen Flow Rate (LPM) 55 Fraction of Inspired Oxygen 07/05/24 17:15 07/05/24 17:30 07/05/24 17:45 Temperature Temperature Source Pulse Rate 96 H 98 H 101 H Pulse Rate [Right] Respiratory Rate 21 17 22 Blood Pressure 112/59 L 117/68 133/69 Blood Pressure [Right Arm] Blood Pressure Mean [Right Arm] Blood Pressure Source Blood Pressure Source [Right Arm] Blood Pressure Position Blood Pressure Position [Right Arm] 02 Sat by Pulse Oximetry 98 99 100 Oxygen Delivery Method BiPAP BiPAP BiPAP Oxygen Flow Rate (LPM) Fraction of Inspired Oxygen 07/05/24 17:57 07/05/24 18:00 07/05/24 18:07 Temperature Temperature Source Pulse Rate 71 99 H Pulse Rate [Right] Respiratory Rate 22 28 H Blood Pressure 133/69 134/68 Blood Pressure [Right Arm] Blood Pressure Mean [Right Arm] Blood Pressure Source Automatic Cuff Blood Pressure Source [Right Arm] Blood Pressure Position Sitting Blood Pressure Position [Right Arm] 02 Sat by Pulse Oximetry 92 L 89 L Oxygen Delivery Method BiPAP BiPAP Oxygen Flow Rate (LPM) 100 Fraction of Inspired Oxygen 100 07/05/24 18:15 07/05/24 18:31 07/05/24 18:34 Temperature Temperature Source Pulse Rate 95 H 103 H 105 H Pulse Rate [Right] Respiratory Rate 31 H 33 H 22 Blood Pressure 127/62 133/69 133/69 Blood Pressure [Right Arm] Blood Pressure Mean [Right Arm] Blood Pressure Source Automatic Cuff Blood Pressure Source [Right Arm] Blood Pressure Position Sitting Blood Pressure Position [Right Arm] 02 Sat by Pulse Oximetry 86 L 85 L 86 L Oxygen Delivery Method BiPAP BiPAP BiPAP Oxygen Flow Rate (LPM) Fraction of Inspired Oxygen 07/05/24 18:57 07/05/24 19:00 07/05/24 19:00 Temperature Temperature Source Pulse Rate 103 H 97 H 127 H Pulse Rate [Right] Respiratory Rate 38 H 24 25 H Blood Pressure 135/68 135/68 125/77 Blood Pressure [Right Arm] Blood Pressure Mean [Right Arm] Blood Pressure Source Automatic Cuff Blood Pressure Source [Right Arm] Blood Pressure Position Sitting Blood Pressure Position [Right Arm] 02 Sat by Pulse Oximetry 84 L 100 92 L Oxygen Delivery Method Mechanical Ventilation Oxygen Flow Rate (LPM) Fraction of Inspired Oxygen 07/05/24 19:04 07/05/24 19:05 07/05/24 19:10 Temperature Temperature Source Pulse Rate 119 H 117 H 104 H Pulse Rate [Right] Respiratory Rate 18 18 25 H Blood Pressure 138/81 143/78 H 149/83 H Blood Pressure [Right Arm] Blood Pressure Mean [Right Arm] Blood Pressure Source Blood Pressure Source [Right Arm] Blood Pressure Position Blood Pressure Position [Right Arm] 02 Sat by Pulse Oximetry 100 100 97 Oxygen Delivery Method Oxygen Flow Rate (LPM) Fraction of Inspired Oxygen 07/05/24 19:15 07/05/24 19:20 07/05/24 19:25 Temperature Temperature Source Pulse Rate 111 H 121 H 111 H Pulse Rate [Right] Respiratory Rate 17 15 18 Blood Pressure 146/82 H 143/81 H 117/64 Blood Pressure [Right Arm] Blood Pressure Mean [Right Arm] Blood Pressure Source Blood Pressure Source [Right Arm] Blood Pressure Position Blood Pressure Position [Right Arm] 02 Sat by Pulse Oximetry 99 100 100 Oxygen Delivery Method Oxygen Flow Rate (LPM) Fraction of Inspired Oxygen 07/05/24 19:29 07/05/24 19:30 07/05/24 19:30 Temperature Temperature Source Pulse Rate 110 H 111 H Pulse Rate [Right] Respiratory Rate 19 24 17 Blood Pressure 117/64 118/69 Blood Pressure [Right Arm] Blood Pressure Mean [Right Arm] Blood Pressure Source Automatic Cuff Blood Pressure Source [Right Arm] Blood Pressure Position Sitting Blood Pressure Position [Right Arm] 02 Sat by Pulse Oximetry 80 L 100 Oxygen Delivery Method Mechanical Ventilation Oxygen Flow Rate (LPM) Fraction of Inspired Oxygen 80 07/05/24 19:35 07/05/24 19:40 07/05/24 19:46 Temperature Temperature Source Pulse Rate 112 H 111 H 105 H Pulse Rate [Right] Respiratory Rate 17 17 15 Blood Pressure 133/72 131/97 H 110/60 Blood Pressure [Right Arm] Blood Pressure Mean [Right Arm] Blood Pressure Source Blood Pressure Source [Right Arm] Blood Pressure Position Blood Pressure Position [Right Arm] 02 Sat by Pulse Oximetry 98 100 100 Oxygen Delivery Method Oxygen Flow Rate (LPM) Fraction of Inspired Oxygen 07/05/24 19:50 07/05/24 19:53 07/05/24 19:55 Temperature Temperature Source Pulse Rate 103 H 104 H 100 H Pulse Rate [Right] Respiratory Rate 18 18 18 Blood Pressure 117/62 117/62 111/57 L Blood Pressure [Right Arm] Blood Pressure Mean [Right Arm] Blood Pressure Source Blood Pressure Source [Right Arm] Blood Pressure Position Blood Pressure Position [Right Arm] 02 Sat by Pulse Oximetry 100 100 100 Oxygen Delivery Method Mechanical Ventilation Oxygen Flow Rate (LPM) Fraction of Inspired Oxygen 07/05/24 20:00 07/05/24 20:05 07/05/24 20:09 Temperature Temperature Source Pulse Rate 101 H 109 H 113 H Pulse Rate [Right] Respiratory Rate 16 19 16 Blood Pressure 120/67 112/70 124/72 Blood Pressure [Right Arm] Blood Pressure Mean [Right Arm] Blood Pressure Source Blood Pressure Source [Right Arm] Blood Pressure Position Blood Pressure Position [Right Arm] 02 Sat by Pulse Oximetry 97 96 97 Oxygen Delivery Method Oxygen Flow Rate (LPM) Fraction of Inspired Oxygen 07/05/24 20:15 07/05/24 20:20 07/05/24 20:25 Temperature Temperature Source Pulse Rate 100 H 98 H 93 H Pulse Rate [Right] Respiratory Rate 18 18 18 Blood Pressure 107/55 L 97/53 L 94/53 L Blood Pressure [Right Arm] Blood Pressure Mean [Right Arm] Blood Pressure Source Blood Pressure Source [Right Arm] Blood Pressure Position Blood Pressure Position [Right Arm] 02 Sat by Pulse Oximetry 98 99 99 Oxygen Delivery Method Oxygen Flow Rate (LPM) Fraction of Inspired Oxygen 07/05/24 20:30 07/05/24 20:35 07/05/24 20:35 Temperature Temperature Source Pulse Rate 94 H 94 H Pulse Rate [Right] Respiratory Rate 18 16 16 Blood Pressure 96/52 L 93/56 L Blood Pressure [Right Arm] Blood Pressure Mean [Right Arm] Blood Pressure Source Blood Pressure Source [Right Arm] Blood Pressure Position Blood Pressure Position [Right Arm] 02 Sat by Pulse Oximetry 96 95 Oxygen Delivery Method Oxygen Flow Rate (LPM) Fraction of Inspired Oxygen 45 07/05/24 20:39 07/05/24 21:21 Temperature 99.8 F H Temperature Source Axillary Pulse Rate 91 H 86 Pulse Rate [Right] Respiratory Rate 16 16 Blood Pressure 96/52 L 108/54 L Blood Pressure [Right Arm] Blood Pressure Mean [Right Arm] Blood Pressure Source Automatic Cuff Blood Pressure Source [Right Arm] Blood Pressure Position Supine Blood Pressure Position [Right Arm] 02 Sat by Pulse Oximetry 95 Oxygen Delivery Method Mechanical Ventilation Oxygen Flow Rate (LPM) Fraction of Inspired Oxygen Lab Data Lab Results 07/05/24 13:20: WBC 22.8 H*, RBC 3.39 L, Hgb 9.7 L, Hct 32.4 L, MCV 95.6, MCH 28.6, MCHC 29.9 L, RDW 15.9, Plt Count 409, MPV 10.5 H, Neut % (Auto) 91.6 H, L ymph % (Auto) 2.8 L, [place] % (Auto) 4.4, Eos % (Auto) 0.1, Baso % (Auto) 0.3, N eut # (Auto) 20.9 H, Lymph # (Auto) 0.6 L, [place] # (Auto) 1.0, Eos # (Auto) 0.0, Baso # (Auto) 0.1, Total Counted 100, Neutrophils % (Manual) 95 H, Lymphocytes % (Manual) 3 L, Monocytes % (Manual) 2, Sodium 139, Potassium 4.4, Chloride 93 L, Carbon Dioxide 36 H, Anion Gap 14.4, BUN 21 H, Creatinine 0.60, Estimated Creat Clear 32, Estimated GFR 97, Est GFR ( Amer) 118, Glucose 185 H, Lactate 1.0, Calcium 9.0, Total Bilirubin 0.3, AST 24, ALT 18, Alkaline Phosphatase 113, Troponin I 0.01, NT-Pro-B Natriuret Pep 3020 H, Total Protein 7.4, Albumin 3.3 L , Globulin 4.1 H, Albumin/Globulin Ratio 0.8 L, Procalcitonin 0.093 07/05/24 13:29: VBG pH 7.36, VBG pCO2 69.8 H, VBG pO2 59.3 H, VBG HCO3 38.2 H, V BG Total CO2 40.3 H, VBG O2 Saturation 89.8 H, VBG Base Excess 12.7 H, VBG Lactic Acid 1.2 07/05/24 13:53: Chlamy pneumoniae PCR Not detected, Adenovirus (PCR) Not detected, B. pertussis DNA (PCR) Not detected, Coronavirus OC43 (PCR) Not detected, Coronavirus HKU1 (PCR) Not detected, Coronavirus 229E (PCR) Not detected, SARS-CoV-2 (PCR) Not detected, Coronavirus NL63 (PCR) Not detected, Human Metapneumovir PCR Not detected, Influenza A (H1) PCR Not detected, Influ A (H1N1/09) PCR Not detected, Influenza A (H3) PCR Not detected, Influenza Type A (PCR) Not detected, Influenza Type B (PCR) Not detected, M. pneumoniae (PCR) Not detected, Parainfluenza 1 (PCR) Not detected, Parainfluenza 2 (PCR) Not detected, Parainfluenza 3 (PCR) Not detected, Parainfluenza 4 (PCR) Not detected, RSV (PCR) Not detected, Entero/Rhino (PCR) Not detected 07/05/24 14:27: Urine Color Yellow, Urine Appearance Clear, Urine pH 6.0, Ur Specific [place] 1.015, Urine Protein Negative, Urine Glucose (UA) Negative, Urine Ketones Negative, Urine Blood Negative, Urine Nitrate Negative, Urine Bilirubin Negative, Urine Urobilinogen 0.2, Ur Leukocyte Esterase Negative, Urine RBC None, Urine WBC 5-10, Ur Squamous Epith Cells 20-50, Urine Bacteria Trace 07/05/24 16:51: Specimen Source Right radial, O2 % 70%, ABG pH 7.33 L, ABG pCO2 85.4 H, ABG pO2 52.5 L, ABG HCO3 43.9 H, ABG Total CO2 46.5 H, ABG O2 Saturation 86 L*, ABG Base Excess 18.0 H, [place] Test Acceptable, Vent Rate 20 07/05/24 19:44: Troponin I < 0.01 07/05/24 19:58: Specimen Source Right radial, O2 % 60, ABG pH 7.50 H, ABG pCO2 47.8 H, ABG pO2 135.7 H, ABG HCO3 36.1 H, ABG Total CO2 37.6 H, ABG O2 Saturation 99, ABG Base Excess 12.9 H, [place] Test Non applicable, Vent Rate 18, Tidal Volume 400, PEEP 5 Orders (Tests/Meds): ED MEDICATIONS Discontinued Medications Generic Name Dose Route Start Last Admin Trade Name Freq PRN Reason Stop Dose Admin Albuterol/Ipratropium 9 ml 07/05/24 13:27 07/05/24 13:39 Ipratropium/Albuterol 3 Ml [facility] hospital 07/05/24 13:28 9 ml ONCE ONE Administration Albuterol/Ipratropium 9 ml 07/05/24 14:29 07/05/24 19:38 Ipratropium/Albuterol 3 Ml Critical access hospital 07/05/24 14:30 Not Given ONCE ONE Dexamethasone Sodium Phosphate 10 mg 07/05/24 13:46 07/05/24 13:59 Dexamethasone 4mg/Ml 5ml Mdv IV 07/05/24 13:47 10 mg ONCE ONE Administration Etomidate 20 mg 07/05/24 18:59 07/05/24 19:35 Etomidate 40mg/20ml Vial IV 07/05/24 19:00 20 mg ONCE ONE Administration Furosemide 40 mg 07/05/24 13:28 07/05/24 13:40 Furosemide 40mg/4ml Vial IV 07/05/24 13:29 40 mg ONCE ONE Administration Piperacillin Sod/Tazobactam 50 mls @ 100 mls/hr 07/05/24 14:01 07/05/24 14:46 Sod 3.375 gm/ Sodium Chloride IV 07/05/24 14:30 100 mls/hr ONCE ONE Administration Vancomycin HCl 750 mg/ Sodium 250 mls @ 125 mls/hr 07/05/24 14:15 07/05/24 14:46 Chloride IV 07/05/24 16:14 125 mls/hr ONCE ONE Administration Propofol 100 mls @ 2.531 mls/hr 07/05/24 19:06 07/05/24 20:35 Diprivan 10mg/Ml 100ml Bottle IV 08/04/24 19:05 30 mcg/kg/min .Q24H SUSAN 7.59 mls/hr Titration Protocol 10 MCG/KG/MIN Sodium Chloride 1,000 mls @ 999 mls/hr 07/05/24 20:11 07/05/24 20:24 Sod Chlor 0.9% 1000ml Bag IV 07/05/24 21:11 999 mls/hr .Q1H1M ONE Administration Iopamidol 75 ml 07/05/24 14:13 07/05/24 14:18 Iopamidol-370 (76%);100ml Bottle IV 07/05/24 14:14 75 ml ONCE ONE Administration Miscellaneous 1 each 07/05/24 14:00 07/05/24 14:37 Vancomycin Consult Request NOTAPPLIC 08/04/24 13:59 1 each CONSULT PHARMACY SUSAN Administration Sodium Chloride 10 ml 07/05/24 13:24 Sodium Chloride 0.9% 10ml Flush Syringe IV 08/04/24 13:23 NEEDED PRN Maintain IV Site Sodium Chloride 3 ml 07/05/24 13:28 Sodium Chloride 3% 15ml Neb IH 08/04/24 13:27 ONCE PRN INDUCE SPUTUM COLLECTION Sodium Chloride 50 ml 07/05/24 14:13 07/05/24 14:17 0.9 % Sodium Chloride 50 Ml Vial IV 07/05/24 14:14 50 ml ONCE ONE Administration Sodium Chloride 10 ml 07/05/24 14:13 07/05/24 14:18 Sodium Chloride 0.9% 10ml Syr (Rad Only) IV 07/05/24 14:14 10 ml ONCE ONE Administration Sodium Chloride 3 ml 07/05/24 19:31 Sodium Chloride 3% 15ml Neb IH 08/04/24 19:30 ONCE PRN INDUCE SPUTUM COLLECTION Succinylcholine Chloride 50 mg 07/05/24 18:59 07/05/24 19:36 Succinylcholine 20mg/Ml 10 Ml Mdv IV 07/05/24 19:00 50 mg ONCE ONE Administration ORDERS Category Date Time Status CT angio chest PE protocol Stat Cat Scan 07/05/24 13:27 Completed CXR --portable [XR chest portable] Stat Exams 07/05/24 19:07 Completed KUB (single view) [XR KUB] Stat Exams 07/05/24 19:18 Completed XR chest portable Stat Exams 07/05/24 13:22 Completed Complete Blood Count Auto Diff Stat Lab 07/05/24 13:20 Completed Comprehensive Metabolic Panel Stat Lab 07/05/24 13:20 Completed Full Resp Panel w/COVID ([facility]) Routine Lab 07/05/24 13:53 Completed Lactic Acid Stat Lab 07/05/24 13:20 Completed NT Pro Brain Natriuretic Pep. Stat Lab 07/05/24 13:20 Completed Procalcitonin Stat Lab 07/05/24 13:20 Completed Troponin I Q3H Lab 07/05/24 19:44 Completed Troponin I Stat Lab 07/05/24 13:20 Completed UA [Urinalysis and Microscopic] Stat Lab 07/05/24 14:27 Completed Blood Culture Stat Micro 07/05/24 14:36 Received Sputum Culture & Gram Stain Stat Micro 07/05/24 19:12 Results ABG [Arterial Blood Gas] Stat RT 07/05/24 16:51 Completed ABG [Arterial Blood Gas] Timed RT 07/05/24 19:58 Completed VBG [Venous Blood Gas] Stat RT 07/05/24 13:29 Completed Medical Decision Narrative: In summary patient is a [age, sex] who presents to the emergency department for evaluation of [complaint]. Patient is [hemodynamically stable/unstable] upon arrival, [febrile/afebrile]. [Unremarkable physical exam, nonfocal exam versus focal remarkable exam]. Differential diagnosis includes [DDx]. Initial workup will be conducted with [hematologic labs, imaging, respiratory swab, describe workup]. Initial interventions include [crystalloid bolus, medications, p.o. challenge, etc.] initial workup reviewed by me [hematologic labs are remarkable for... Imaging remarkable for... Urinalysis remarkable for]. Upon repeat evaluation [patient had acceptable resolution of symptoms, had persistent pain for which additional interventions were conducted (describe interventions), tolerated p.o., was ambulatory, etc.]. Given this [patient is appropriate for discharge at this time and will be discharged with a prescription for... The case was discussed with hospital medicine regarding management and they will admit the patient their service for continued evaluation at this time... Etc.] the patient was placed in observation status at 1630. Medical necessity for observational status is bed availability at [facility]. The patient was provided serial reevaluations supplemental O2 and BiPAP along with continuous cardiac monitoring pulse oximetry while awaiting results. [Results of testing during observation remarkable for:]. [Because of these results I feel the patient can be discharged with follow-up with her PCP versus I feel the patient requires admission due to]. Total time in observation was [total time]. Places where you can increase complexity: I informally interpreted the patient's chest x-ray or CT read and is remarkable for... Supplemental Documenting what the telemetry monitor shows with rate and rhythm Consideration of test but deferring. Ex: I considered chest x-ray on this patient however given that they have no oxygen requirement and are clear to auscultation all lung shaver will be deferred. Social determinants of health: Given that patient is undomiciled increases complexity. Given that patient has polysubstance abuse compounds all aspects of care DO Berto: I was consulted by the CARINA, and we discussed the complexity of the problems being addressed. I approved the treatment and management plan for this patient's care in the emergency department, thus performing a substantive portion of the medical decision making. Patient unfortunately had decompensated respiratory status on BiPAP at my time of arrival at 1500. She has postobstructive pneumonia in the setting of lung cancer, sepsis secondary to pneumonia, acute on chronic respiratory failure. Despite being on maximal BiPAP settings, she continued to have worsening respiratory acidosis as well as hypoxia with an O2 saturation in the mid 80s on 20/8 100% FiO2 on BiPAP. Given this, after extensive goals of care discussion with the family, patient was intubated. They advised they did want her intubated for her respiratory failure, but they do not want chest compressions if her heart were to stop. Patient confirmed this prior to intubation. I did explain to her that she may never come off the ventilator, but she is still requesting to be put on the ventilator. CODE STATUS was changed to DNR/okay to intubate. Patient has been treated here with broad-spectrum IV antibiotics. She was stabilized on the ventilator with propofol for maintenance of sedation. She tolerated this well with no immediate complications. I was able to gradually wean down her FiO2 on the vent to 60%. Sputum culture was sent and is pending. Patient was waitlisted for bed at where she follows for cancer care, however they do not have a bed and our hospitalist does not feel comfortable admitting her here given her respiratory status and the fact we do not have pulmonology. We then called , who graciously except the patient for transfer. Please see CARINA note for further documentation of this. Flight crew transportation was arranged, the patient was ultimately transferred in stabilized condition. Sachi Thomson DO <Jose Staples MD - Last Filed: 07/06/24 07:23> Vital Signs: 07/05/24 13:07 07/05/24 13:46 07/05/24 14:00 Temperature 98.7 F Temperature Source Oral Pulse Rate 96 H 92 H Pulse Rate [Right] 95 H Respiratory Rate 18 21 22 Blood Pressure 118/58 L 120/58 L Blood Pressure [Right Arm] 119/53 L Blood Pressure Mean [Right Arm] 75 Blood Pressure Source Blood Pressure Source [Right Arm] Automatic Cuff Blood Pressure Position Blood Pressure Position [Right Arm] Sitting 02 Sat by Pulse Oximetry 99 96 98 Oxygen Delivery Method Nasal Cannula Nasal Cannula Nasal Cannula Oxygen Flow Rate (LPM) 5 Fraction of Inspired Oxygen 07/05/24 14:21 07/05/24 14:24 07/05/24 14:30 Temperature Temperature Source Pulse Rate 107 H 98 H 106 H Pulse Rate [Right] Respiratory Rate 18 22 23 Blood Pressure 120/58 L 122/67 135/63 Blood Pressure [Right Arm] Blood Pressure Mean [Right Arm] Blood Pressure Source Automatic Cuff Blood Pressure Source [Right Arm] Blood Pressure Position Sitting Blood Pressure Position [Right Arm] 02 Sat by Pulse Oximetry 78 L 89 L 86 L Oxygen Delivery Method Nasal Cannula Nasal Cannula Nasal Cannula Oxygen Flow Rate (LPM) 6 Fraction of Inspired Oxygen 07/05/24 14:45 07/05/24 14:49 07/05/24 14:55 Temperature Temperature Source Pulse Rate 102 H 103 H Pulse Rate [Right] Respiratory Rate 21 22 Blood Pressure 129/63 Blood Pressure [Right Arm] Blood Pressure Mean [Right Arm] Blood Pressure Source Blood Pressure Source [Right Arm] Blood Pressure Position Blood Pressure Position [Right Arm] 02 Sat by Pulse Oximetry 97 69 L Oxygen Delivery Method Nasal Cannula BiPAP Oxygen Flow Rate (LPM) 35 Fraction of Inspired Oxygen 30 07/05/24 15:00 07/05/24 15:00 07/05/24 15:15 Temperature Temperature Source Pulse Rate 102 H 103 H 109 H Pulse Rate [Right] Respiratory Rate 20 24 21 Blood Pressure 129/63 132/66 131/68 Blood Pressure [Right Arm] Blood Pressure Mean [Right Arm] Blood Pressure Source Automatic Cuff Blood Pressure Source [Right Arm] Blood Pressure Position Sitting Blood Pressure Position [Right Arm] 02 Sat by Pulse Oximetry 94 L 93 L 100 Oxygen Delivery Method BiPAP Nasal Cannula Nasal Cannula Oxygen Flow Rate (LPM) 100 Fraction of Inspired Oxygen 07/05/24 15:30 07/05/24 15:45 07/05/24 15:47 Temperature Temperature Source Pulse Rate 108 H 89 95 H Pulse Rate [Right] Respiratory Rate 24 20 20 Blood Pressure 120/57 L 116/55 L 116/55 L Blood Pressure [Right Arm] Blood Pressure Mean [Right Arm] Blood Pressure Source Automatic Cuff Blood Pressure Source [Right Arm] Blood Pressure Position Sitting Blood Pressure Position [Right Arm] 02 Sat by Pulse Oximetry 100 100 100 Oxygen Delivery Method BiPAP BiPAP BiPAP Oxygen Flow Rate (LPM) 90 Fraction of Inspired Oxygen 07/05/24 16:00 07/05/24 16:09 07/05/24 16:11 Temperature Temperature Source Pulse Rate 98 H 105 H Pulse Rate [Right] Respiratory Rate 18 20 Blood Pressure 123/62 123/62 Blood Pressure [Right Arm] Blood Pressure Mean [Right Arm] Blood Pressure Source Automatic Cuff Blood Pressure Source [Right Arm] Blood Pressure Position Sitting Blood Pressure Position [Right Arm] 02 Sat by Pulse Oximetry 100 89 L Oxygen Delivery Method Room Air BiPAP Oxygen Flow Rate (LPM) 50 Fraction of Inspired Oxygen 50 07/05/24 16:15 07/05/24 16:25 07/05/24 16:30 Temperature Temperature Source Pulse Rate 103 H 118 H Pulse Rate [Right] Respiratory Rate 28 H 22 Blood Pressure 138/64 115/74 Blood Pressure [Right Arm] Blood Pressure Mean [Right Arm] Blood Pressure Source Blood Pressure Source [Right Arm] Blood Pressure Position Blood Pressure Position [Right Arm] 02 Sat by Pulse Oximetry 87 L 96 Oxygen Delivery Method BiPAP Oxygen Flow Rate (LPM) Fraction of Inspired Oxygen 55 07/05/24 16:31 07/05/24 16:45 07/05/24 17:00 Temperature Temperature Source Pulse Rate 115 H 119 H 92 H Pulse Rate [Right] Respiratory Rate 20 26 H 19 Blood Pressure 115/74 129/73 117/55 L Blood Pressure [Right Arm] Blood Pressure Mean [Right Arm] Blood Pressure Source Automatic Cuff Blood Pressure Source [Right Arm] Blood Pressure Position Sitting Blood Pressure Position [Right Arm] 02 Sat by Pulse Oximetry 96 99 99 Oxygen Delivery Method BiPAP BiPAP BiPAP Oxygen Flow Rate (LPM) 55 Fraction of Inspired Oxygen 07/05/24 17:15 07/05/24 17:30 07/05/24 17:45 Temperature Temperature Source Pulse Rate 96 H 98 H 101 H Pulse Rate [Right] Respiratory Rate 21 17 22 Blood Pressure 112/59 L 117/68 133/69 Blood Pressure [Right Arm] Blood Pressure Mean [Right Arm] Blood Pressure Source Blood Pressure Source [Right Arm] Blood Pressure Position Blood Pressure Position [Right Arm] 02 Sat by Pulse Oximetry 98 99 100 Oxygen Delivery Method BiPAP BiPAP BiPAP Oxygen Flow Rate (LPM) Fraction of Inspired Oxygen 07/05/24 17:57 07/05/24 18:00 07/05/24 18:07 Temperature Temperature Source Pulse Rate 71 99 H Pulse Rate [Right] Respiratory Rate 22 28 H Blood Pressure 133/69 134/68 Blood Pressure [Right Arm] Blood Pressure Mean [Right Arm] Blood Pressure Source Automatic Cuff Blood Pressure Source [Right Arm] Blood Pressure Position Sitting Blood Pressure Position [Right Arm] 02 Sat by Pulse Oximetry 92 L 89 L Oxygen Delivery Method BiPAP BiPAP Oxygen Flow Rate (LPM) 100 Fraction of Inspired Oxygen 100 07/05/24 18:15 07/05/24 18:31 07/05/24 18:34 Temperature Temperature Source Pulse Rate 95 H 103 H 105 H Pulse Rate [Right] Respiratory Rate 31 H 33 H 22 Blood Pressure 127/62 133/69 133/69 Blood Pressure [Right Arm] Blood Pressure Mean [Right Arm] Blood Pressure Source Automatic Cuff Blood Pressure Source [Right Arm] Blood Pressure Position Sitting Blood Pressure Position [Right Arm] 02 Sat by Pulse Oximetry 86 L 85 L 86 L Oxygen Delivery Method BiPAP BiPAP BiPAP Oxygen Flow Rate (LPM) Fraction of Inspired Oxygen 07/05/24 18:57 07/05/24 19:00 07/05/24 19:00 Temperature Temperature Source Pulse Rate 103 H 97 H 127 H Pulse Rate [Right] Respiratory Rate 38 H 24 25 H Blood Pressure 135/68 135/68 125/77 Blood Pressure [Right Arm] Blood Pressure Mean [Right Arm] Blood Pressure Source Automatic Cuff Blood Pressure Source [Right Arm] Blood Pressure Position Sitting Blood Pressure Position [Right Arm] 02 Sat by Pulse Oximetry 84 L 100 92 L Oxygen Delivery Method Mechanical Ventilation Oxygen Flow Rate (LPM) Fraction of Inspired Oxygen 07/05/24 19:04 07/05/24 19:05 07/05/24 19:10 Temperature Temperature Source Pulse Rate 119 H 117 H 104 H Pulse Rate [Right] Respiratory Rate 18 18 25 H Blood Pressure 138/81 143/78 H 149/83 H Blood Pressure [Right Arm] Blood Pressure Mean [Right Arm] Blood Pressure Source Blood Pressure Source [Right Arm] Blood Pressure Position Blood Pressure Position [Right Arm] 02 Sat by Pulse Oximetry 100 100 97 Oxygen Delivery Method Oxygen Flow Rate (LPM) Fraction of Inspired Oxygen 07/05/24 19:15 07/05/24 19:20 07/05/24 19:25 Temperature Temperature Source Pulse Rate 111 H 121 H 111 H Pulse Rate [Right] Respiratory Rate 17 15 18 Blood Pressure 146/82 H 143/81 H 117/64 Blood Pressure [Right Arm] Blood Pressure Mean [Right Arm] Blood Pressure Source Blood Pressure Source [Right Arm] Blood Pressure Position Blood Pressure Position [Right Arm] 02 Sat by Pulse Oximetry 99 100 100 Oxygen Delivery Method Oxygen Flow Rate (LPM) Fraction of Inspired Oxygen 07/05/24 19:29 07/05/24 19:30 07/05/24 19:30 Temperature Temperature Source Pulse Rate 110 H 111 H Pulse Rate [Right] Respiratory Rate 19 24 17 Blood Pressure 117/64 118/69 Blood Pressure [Right Arm] Blood Pressure Mean [Right Arm] Blood Pressure Source Automatic Cuff Blood Pressure Source [Right Arm] Blood Pressure Position Sitting Blood Pressure Position [Right Arm] 02 Sat by Pulse Oximetry 80 L 100 Oxygen Delivery Method Mechanical Ventilation Oxygen Flow Rate (LPM) Fraction of Inspired Oxygen 80 07/05/24 19:35 07/05/24 19:40 07/05/24 19:46 Temperature Temperature Source Pulse Rate 112 H 111 H 105 H Pulse Rate [Right] Respiratory Rate 17 17 15 Blood Pressure 133/72 131/97 H 110/60 Blood Pressure [Right Arm] Blood Pressure Mean [Right Arm] Blood Pressure Source Blood Pressure Source [Right Arm] Blood Pressure Position Blood Pressure Position [Right Arm] 02 Sat by Pulse Oximetry 98 100 100 Oxygen Delivery Method Oxygen Flow Rate (LPM) Fraction of Inspired Oxygen 07/05/24 19:50 07/05/24 19:53 07/05/24 19:55 Temperature Temperature Source Pulse Rate 103 H 104 H 100 H Pulse Rate [Right] Respiratory Rate 18 18 18 Blood Pressure 117/62 117/62 111/57 L Blood Pressure [Right Arm] Blood Pressure Mean [Right Arm] Blood Pressure Source Blood Pressure Source [Right Arm] Blood Pressure Position Blood Pressure Position [Right Arm] 02 Sat by Pulse Oximetry 100 100 100 Oxygen Delivery Method Mechanical Ventilation Oxygen Flow Rate (LPM) Fraction of Inspired Oxygen 07/05/24 20:00 07/05/24 20:05 07/05/24 20:09 Temperature Temperature Source Pulse Rate 101 H 109 H 113 H Pulse Rate [Right] Respiratory Rate 16 19 16 Blood Pressure 120/67 112/70 124/72 Blood Pressure [Right Arm] Blood Pressure Mean [Right Arm] Blood Pressure Source Blood Pressure Source [Right Arm] Blood Pressure Position Blood Pressure Position [Right Arm] 02 Sat by Pulse Oximetry 97 96 97 Oxygen Delivery Method Oxygen Flow Rate (LPM) Fraction of Inspired Oxygen 07/05/24 20:15 07/05/24 20:20 07/05/24 20:25 Temperature Temperature Source Pulse Rate 100 H 98 H 93 H Pulse Rate [Right] Respiratory Rate 18 18 18 Blood Pressure 107/55 L 97/53 L 94/53 L Blood Pressure [Right Arm] Blood Pressure Mean [Right Arm] Blood Pressure Source Blood Pressure Source [Right Arm] Blood Pressure Position Blood Pressure Position [Right Arm] 02 Sat by Pulse Oximetry 98 99 99 Oxygen Delivery Method Oxygen Flow Rate (LPM) Fraction of Inspired Oxygen 07/05/24 20:30 07/05/24 20:35 07/05/24 20:35 Temperature Temperature Source Pulse Rate 94 H 94 H Pulse Rate [Right] Respiratory Rate 18 16 16 Blood Pressure 96/52 L 93/56 L Blood Pressure [Right Arm] Blood Pressure Mean [Right Arm] Blood Pressure Source Blood Pressure Source [Right Arm] Blood Pressure Position Blood Pressure Position [Right Arm] 02 Sat by Pulse Oximetry 96 95 Oxygen Delivery Method Oxygen Flow Rate (LPM) Fraction of Inspired Oxygen 45 07/05/24 20:39 07/05/24 21:21 Temperature 99.8 F H Temperature Source Axillary Pulse Rate 91 H 86 Pulse Rate [Right] Respiratory Rate 16 16 Blood Pressure 96/52 L 108/54 L Blood Pressure [Right Arm] Blood Pressure Mean [Right Arm] Blood Pressure Source Automatic Cuff Blood Pressure Source [Right Arm] Blood Pressure Position Supine Blood Pressure Position [Right Arm] 02 Sat by Pulse Oximetry 95 Oxygen Delivery Method Mechanical Ventilation Oxygen Flow Rate (LPM) Fraction of Inspired Oxygen Lab Data Lab Results 07/05/24 13:20: WBC 22.8 H*, RBC 3.39 L, Hgb 9.7 L, Hct 32.4 L, MCV 95.6, MCH 28.6, MCHC 29.9 L, RDW 15.9, Plt Count 409, MPV 10.5 H, Neut % (Auto) 91.6 H, L ymph % (Auto) 2.8 L, [place] % (Auto) 4.4, Eos % (Auto) 0.1, Baso % (Auto) 0.3, N eut # (Auto) 20.9 H, Lymph # (Auto) 0.6 L, [place] # (Auto) 1.0, Eos # (Auto) 0.0, Baso # (Auto) 0.1, Total Counted 100, Neutrophils % (Manual) 95 H, Lymphocytes % (Manual) 3 L, Monocytes % (Manual) 2, Sodium 139, Potassium 4.4, Chloride 93 L, Carbon Dioxide 36 H, Anion Gap 14.4, BUN 21 H, Creatinine 0.60, Estimated Creat Clear 32, Estimated GFR 97, Est GFR ( Amer) 118, Glucose 185 H, Lactate 1.0, Calcium 9.0, Total Bilirubin 0.3, AST 24, ALT 18, Alkaline Phosphatase 113, Troponin I 0.01, NT-Pro-B Natriuret Pep 3020 H, Total Protein 7.4, Albumin 3.3 L , Globulin 4.1 H, Albumin/Globulin Ratio 0.8 L, Procalcitonin 0.093 07/05/24 13:29: VBG pH 7.36, VBG pCO2 69.8 H, VBG pO2 59.3 H, VBG HCO3 38.2 H, V BG Total CO2 40.3 H, VBG O2 Saturation 89.8 H, VBG Base Excess 12.7 H, VBG Lactic Acid 1.2 07/05/24 13:53: Chlamy pneumoniae PCR Not detected, Adenovirus (PCR) Not detected, B. pertussis DNA (PCR) Not detected, Coronavirus OC43 (PCR) Not detected, Coronavirus HKU1 (PCR) Not detected, Coronavirus 229E (PCR) Not detected, SARS-CoV-2 (PCR) Not detected, Coronavirus NL63 (PCR) Not detected, Human Metapneumovir PCR Not detected, Influenza A (H1) PCR Not detected, Influ A (H1N1/09) PCR Not detected, Influenza A (H3) PCR Not detected, Influenza Type A (PCR) Not detected, Influenza Type B (PCR) Not detected, M. pneumoniae (PCR) Not detected, Parainfluenza 1 (PCR) Not detected, Parainfluenza 2 (PCR) Not detected, Parainfluenza 3 (PCR) Not detected, Parainfluenza 4 (PCR) Not detected, RSV (PCR) Not detected, Entero/Rhino (PCR) Not detected 07/05/24 14:27: Urine Color Yellow, Urine Appearance Clear, Urine pH 6.0, Ur Specific [place] 1.015, Urine Protein Negative, Urine Glucose (UA) Negative, Urine Ketones Negative, Urine Blood Negative, Urine Nitrate Negative, Urine Bilirubin Negative, Urine Urobilinogen 0.2, Ur Leukocyte Esterase Negative, Urine RBC None, Urine WBC 5-10, Ur Squamous Epith Cells 20-50, Urine Bacteria Trace 07/05/24 16:51: Specimen Source Right radial, O2 % 70%, ABG pH 7.33 L, ABG pCO2 85.4 H, ABG pO2 52.5 L, ABG HCO3 43.9 H, ABG Total CO2 46.5 H, ABG O2 Saturation 86 L*, ABG Base Excess 18.0 H, [place] Test Acceptable, Vent Rate 20 07/05/24 19:44: Troponin I < 0.01 07/05/24 19:58: Specimen Source Right radial, O2 % 60, ABG pH 7.50 H, ABG pCO2 47.8 H, ABG pO2 135.7 H, ABG HCO3 36.1 H, ABG Total CO2 37.6 H, ABG O2 Saturation 99, ABG Base Excess 12.9 H, [place] Test Non applicable, Vent Rate 18, Tidal Volume 400, PEEP 5 Orders (Tests/Meds): ED MEDICATIONS Discontinued Medications Generic Name Dose Route Start Last Admin Trade Name Freq PRN Reason Stop Dose Admin Albuterol/Ipratropium 9 ml 07/05/24 13:27 07/05/24 13:39 Ipratropium/Albuterol 3 Ml [facility] hospital 07/05/24 13:28 9 ml ONCE ONE Administration Albuterol/Ipratropium 9 ml 07/05/24 14:29 07/05/24 19:38 Ipratropium/Albuterol 3 Ml Critical access hospital 07/05/24 14:30 Not Given ONCE ONE Dexamethasone Sodium Phosphate 10 mg 07/05/24 13:46 07/05/24 13:59 Dexamethasone 4mg/Ml 5ml Mdv IV 07/05/24 13:47 10 mg ONCE ONE Administration Etomidate 20 mg 07/05/24 18:59 07/05/24 19:35 Etomidate 40mg/20ml Vial IV 07/05/24 19:00 20 mg ONCE ONE Administration Furosemide 40 mg 07/05/24 13:28 07/05/24 13:40 Furosemide 40mg/4ml Vial IV 07/05/24 13:29 40 mg ONCE ONE Administration Piperacillin Sod/Tazobactam 50 mls @ 100 mls/hr 07/05/24 14:01 07/05/24 14:46 Sod 3.375 gm/ Sodium Chloride IV 07/05/24 14:30 100 mls/hr ONCE ONE Administration Vancomycin HCl 750 mg/ Sodium 250 mls @ 125 mls/hr 07/05/24 14:15 07/05/24 14:46 Chloride IV 07/05/24 16:14 125 mls/hr ONCE ONE Administration Propofol 100 mls @ 2.531 mls/hr 07/05/24 19:06 07/05/24 20:35 Diprivan 10mg/Ml 100ml Bottle IV 08/04/24 19:05 30 mcg/kg/min .Q24H SUSAN 7.59 mls/hr Titration Protocol 10 MCG/KG/MIN Sodium Chloride 1,000 mls @ 999 mls/hr 07/05/24 20:11 07/05/24 20:24 Sod Chlor 0.9% 1000ml Bag IV 07/05/24 21:11 999 mls/hr .Q1H1M ONE Administration Iopamidol 75 ml 07/05/24 14:13 07/05/24 14:18 Iopamidol-370 (76%);100ml Bottle IV 07/05/24 14:14 75 ml ONCE ONE Administration Miscellaneous 1 each 07/05/24 14:00 07/05/24 14:37 Vancomycin Consult Request NOTAPPLIC 08/04/24 13:59 1 each CONSULT PHARMACY SUSAN Administration Sodium Chloride 10 ml 07/05/24 13:24 Sodium Chloride 0.9% 10ml Flush Syringe IV 08/04/24 13:23 NEEDED PRN Maintain IV Site Sodium Chloride 3 ml 07/05/24 13:28 Sodium Chloride 3% 15ml Neb IH 08/04/24 13:27 ONCE PRN INDUCE SPUTUM COLLECTION Sodium Chloride 50 ml 07/05/24 14:13 07/05/24 14:17 0.9 % Sodium Chloride 50 Ml Vial IV 07/05/24 14:14 50 ml ONCE ONE Administration Sodium Chloride 10 ml 07/05/24 14:13 07/05/24 14:18 Sodium Chloride 0.9% 10ml Syr (Rad Only) IV 07/05/24 14:14 10 ml ONCE ONE Administration Sodium Chloride 3 ml 07/05/24 19:31 Sodium Chloride 3% 15ml Neb IH 08/04/24 19:30 ONCE PRN INDUCE SPUTUM COLLECTION Succinylcholine Chloride 50 mg 07/05/24 18:59 07/05/24 19:36 Succinylcholine 20mg/Ml 10 Ml Mdv IV 07/05/24 19:00 50 mg ONCE ONE Administration ORDERS Category Date Time Status CT angio chest PE protocol Stat Cat Scan 07/05/24 13:27 Completed CXR --portable [XR chest portable] Stat Exams 07/05/24 19:07 Completed KUB (single view) [XR KUB] Stat Exams 07/05/24 19:18 Completed XR chest portable Stat Exams 07/05/24 13:22 Completed Complete Blood Count Auto Diff Stat Lab 07/05/24 13:20 Completed Comprehensive Metabolic Panel Stat Lab 07/05/24 13:20 Completed Full Resp Panel w/COVID ([facility]) Routine Lab 07/05/24 13:53 Completed Lactic Acid Stat Lab 07/05/24 13:20 Completed NT Pro Brain Natriuretic Pep. Stat Lab 07/05/24 13:20 Completed Procalcitonin Stat Lab 07/05/24 13:20 Completed Troponin I Q3H Lab 07/05/24 19:44 Completed Troponin I Stat Lab 07/05/24 13:20 Completed UA [Urinalysis and Microscopic] Stat Lab 07/05/24 14:27 Completed Blood Culture Stat Micro 07/05/24 14:36 Received Sputum Culture & Gram Stain Stat Micro 07/05/24 19:12 Results ABG [Arterial Blood Gas] Stat RT 07/05/24 16:51 Completed ABG [Arterial Blood Gas] Timed RT 07/05/24 19:58 Completed VBG [Venous Blood Gas] Stat RT 07/05/24 13:29 Completed HEART Score HEART Score: 5 Medical Decision Narrative: In summary patient is a 78-year-old female who presents to the emergency department for evaluation of dyspnea and hypoxia. Patient is initially normotensive at 119/53 with a heart rate of 95 normal sinus rhythm on the bedside monitor breathing 18 times a minute satting at 75% on her 4 L by nasal cannula that corrects to 99% initially on 5 L upon arrival, afebrile at 98.7. Physical exam is remarkable for a very petite but cachectic appearing 78-year-old female who appears to be chronically ill. Patient has increased work of breathing tachypnea accessory muscle use. Auscultation the breath sounds reveals a significantly diminished and absent breath sounds in the right lower lung field with rhonchi in the upper lung shaver bilaterally and in the lower lung shaver. Patient has no dependent edema. Heart sounds are S1 is 2 regular rate rhythm no murmurs gallops rubs or thrills.. Differential diagnosis includes PE pneumonia postobstructive pneumonia pleural effusion worsening lung cancer etc. Initial workup will be conducted with hematologic labs blood cultures VBG plain film chest x-ray CT PE protocol. Initial interventions include DuoNeb Decadron and Lasix. Initial workup reviewed by me and her hematologic labs are significant for white count of 22.8 hemoglobin hematocrit 9.7 and 32.4 respectively with an absolute neutrophil count of 20.9, VBG shows a pH of 7.36 pCO2 of 69.8 with a VBG lactic acid of 1.2, troponins normal at 0.01 NT proBNP is 3020 procalcitonin 0.093 urinalysis is bland full respiratory is negative for any active viral pathogens in my informal interpretation of her CT PE protocol does not show any evidence of thrombus but shows significant right pleural effusion with total collapse of the middle and right lower lobe and a small left pleural effusion.. Upon repeat evaluation patient is now desatting into the 80s on 6 L and given her blood gases decision was made to transition to BiPAP. Initial BiPAP settings were 16/8. Patient was started on broad-spectrum antibiotics after blood cultures sputum cultures obtained.. Given this I had an initial interactive discussion with the [facility] regarding patient presentation [place] and findings and they do not have any beds currently and she has been waitlisted. Upon reevaluation at 1700 hrs. patient was desatting down into the 60s on BiPAP but was only on 35% FiO2. I increased her to 100% and she slowly preoxygenated to 100%. Upon reassessment at 1800 hrs. however patient's ABG showed a increasing hypercarbia. Patient felt better and interactive discussion will and shared decision making discussion was had with the patient and her family regarding advanced directives and intubation. Patient currently is a full code and was agreeable to intubation if required. Approximately 30 minutes later after BiPAP adjustments of 20/8 and 100% FiO2 patient still desatting down into the 80s. Dr. Thomson had a interactive discussion with the family regarding intubation at this point she was made a DNR but was okay for intubation. Please see her intubation note below for full details but patient was excessively intubated. I then had an interactive discussion again with the [facility] regarding patient's status change. They have agreed that she is an ICU admission and plan to move her to the ICU when a bed becomes available but they cannot give a determine time. Given that [place] [facility] [place] by Dr. Muñoz. I was consulted by the CARINA, and we discussed the complexity of the problems being addressed. I approved the treatment and management plan for this patient's care in the Emergency Department, thus performing a substantive portion of the medical decision making. Patient beginning to decompensate on nasal cannula so placed her on BiPAP, initially 14/8. Patient still having mild desaturations on 30% FiO2, was increased to 100% temporarily. Tapered off of FiO2 shortly thereafter. Patient workup independently interpreted, large right-sided effusion and near whiteout of the right lung. Leukocytosis of 23,000 with neutrophilia, but normal lactate 1.0. Patient's BNP greater than 3000, which is significantly higher than where she has previously been. Respiratory viral panel negative. Patient treated empirically for sepsis. Fluids withheld due to overloaded exam and large effusion on x-ray. [facility] was contacted and case was discussed. Prior to disposition and transfer, care handed off. MD Berto Hooks, DO: I was consulted by the CARINA, and we discussed the complexity of the problems being addressed. I approved the treatment and management plan for this patient's care in the emergency department, thus performing a substantive portion of the medical decision making. Patient unfortunately had decompensated respiratory status on BiPAP at my time of arrival at 1500. She has postobstructive pneumonia in the setting of lung cancer, sepsis secondary to pneumonia, acute on chronic respiratory failure. Despite being on maximal BiPAP settings, she continued to have worsening respiratory acidosis as well as hypoxia with an O2 saturation in the mid 80s on 20/8 100% FiO2 on BiPAP. Given this, after extensive goals of care discussion with the family, patient was intubated. They advised they did want her intubated for her respiratory failure, but they do not want chest compressions if her heart were to stop. Patient confirmed this prior to intubation. I did explain to her that she may never come off the ventilator, but she is still requesting to be put on the ventilator. CODE STATUS was changed to DNR/okay to intubate. Patient has been treated here with broad-spectrum IV antibiotics. She was stabilized on the ventilator with propofol for maintenance of sedation. She tolerated this well with no immediate complications. I was able to gradually wean down her FiO2 on the vent to 60%. Sputum culture was sent and is pending. Patient was waitlisted for bed at where she follows for cancer care, however they do not have a bed and our hospitalist does not feel comfortable admitting her here given her respiratory status and the fact we do not have pulmonology. We then called , who graciously except the patient for transfer. Please see CARINA note for further documentation of this. Flight crew transportation was arranged, the patient was ultimately transferred in stabilized condition. Sachi Thomson DO Procedures <Sachi Thomson DO - Last Filed: 07/05/24 20:01> Risk/Benefits of Procedure(s) Were Explained: Yes Intubation Mallampati Score:: Class II Time out performed: Yes sedative: Etomidate Mg Given: 20 paralytic: Succinylcholine Mg Given: 50 Laryngoscope: Rick (Video-assisted Mac 3) ET Tube Size: 7 Tube Secured Depth (cm): 22 Tube Secured Location: lips Tube Placement Confirmation: visualized tube passing through cords, equal breath sounds bilaterally, no breath sounds over epigastrium and confirmation by capnometry Patient Tolerated Procedure: well and no complications Intubation Complications: none Critical Care <TAMMY Couch - Last Filed: 07/05/24 20:32> Critical Care Time Critical Care Time: Yes Attestation: On 07/05/24, the high probability of a clinically significant, sudden or life threatening deterioration of the following system(s) required my full and direct attention, intervention and personal management. The time I documented below is in addition to time spent performing reported procedures but includes the following listed in this critical care notation. Total Time Total Critical Care Time: 90
--- NOTE | 2024-07-05 13:22 | XR_ITS ---
FINAL REPORT CLINICAL HISTORY: shortness of breath COMPARISON: 05/31/2024 FINDINGS: A single view of the chest was obtained. There is mild cardiomegaly. There is a moderate right pleural effusion, increased from the prior exam. There is pulmonary vascular congestion. There are coarse interstitial opacities in both lungs, right greater than left. Incidental note is made of orthopedic hardware securing the right humerus. IMPRESSION: Worsening right pleural effusion. Reviewed, Interpreted and Dictated by Rubén Adam MD Transcribed by Lisy Kauffman Authenticated and [facility]
--- OUTSIDE RECORDS SUMMARY | 2024-07-05 13:22 | XMS_ITS | Continuity of Care Document ---
Author Organization [facility] Phone Care Team Providers Care Architect Intern Name Role Phone NANCY DAMON Admitting STACEY MCFARLANE Primary Care STACEY MCFARLANE Unavailable NANCY DAMON Primary Attending ALLERGIES AND ADVERSE REACTIONS ALLERGIES AND ADVERSE REACTIONS Code System Allergy Substance Adverse Reaction Date Reaction (Severity) Comment Status Reported By Updated By No Known Allergies [id number] on July 02, 2014 4:18:27 PM [facility] FAMILY HISTORY RELATION: Father Status: Cause of : Accident while engaged in work-related activity Age at : Unknown SNOMED-CT Diagnosis Age At Onset Information not available RELATION: Mother Status: Cause of : Unknown Age at : 78 SNOMED-CT Diagnosis Age At Onset [id number] Heart disease [id number] Diabetes mellitus RESULTS Patient: FRANCI Quintero Date of : 1945 2 LABORATORY RESULTS Information is not available LABORATORY NARRATIVE RESULTS Information is not available RADIOLOGY RESULTS ORDER 100: CHEST 2 VIEWS ( INC: [id number]) ORDER DATE: July 03, 2024 3:35:00 PM [facility] PERFORMING LAB: [address] [id number] Final Result Date: July 03, 2024 3:57:18 PM [facility] [address] [place] [address] Name: ESTELA KOROMA Exam Date: 07/03/2024 : 1945 Age 78 years Gender: F Physician: NANCY DAMON Facility: [facility] Facility HSV: Outpatient Exam: CHEST 2 VIEWS EXAM DESCRIPTION: CHEST 2 VIEWS CLINICAL HISTORY: acute cough COMPARISON: 05/24/2019 FINDINGS: There is a moderate to large right pleural effusion. There is airspace opacity and interstitial thickening in the lower right lung. There is interstitial thickening in the left lung without focal consolidation. No pneumothorax. There is exaggeration of the thoracic kyphosis and suggestion of hyperexpansion of the lungs. Right humerus fixation hardware is partially imaged. IMPRESSION: Moderate to large right pleural effusion. Pneumonia in the right lung base. Interstitial thickening suggests pulmonary edema or atypical multifocal pneumonia. Hyperexpansion of the lungs is suggestive of COPD. Electronically signed by: Maynor Mccray MD 07/04/2024 02:09 PM EDT Dictated By: Maynor Mccray Transcribed By: Transcribed On: 07/03/2024 11:57 AM Electronically signed by: Maynor Mccray 07/03/2024 Thank you for referring ESTELA KOROMA to [facility]. Legally authenticated by JESSICA RAZO 2024-07-03 11:57:18 PATHOLOGY NARRATIVE RESULTS Information is not available MICROBIOLOGY RESULTS No Micro Labs/Results Exist for Patient BLOOD ADMIN RESULTS Information is not available MEDICATIONS HOME MEDICATIONS Status RXNORM NDC Medication Dose Route Frequency Dates Comments Reported By Updated By Drug Treatment Unknown DISCHARGE MEDICATIONS Status RXNORM NDC Medication Dose Route Frequency Dates Comments Physician Updated By No Discharge Medication Info rmation Available INPATIENT MEDICATIONS Status RXNORM NDC Medication Dose Route Frequency Rat e Quantity Dates Comments Physician Updated By No Inpatient Medication Info rmation Available SOCIAL HISTORY SOCIAL HISTORY SNOMED-CT Social History Element Description Effective Dates Offered Cessation Comment UpdatedBy [id number] Historical Tobacco smoking status Current Every Day Smoker Start: July 03, 1984 5:00:00 AM [facility] End: July 03, 2014 4:00:00 AM [facility] Yes 1 ppd [id number] on July 03, 2014 10:56:01 AM [facility] SOCIAL HISTORY - Gender Sex: Female SOCIAL HISTORY - Status : status i nformation is not available Intention in Next Year: intention information is not available SOCIAL HISTORY - Sexual Behavior Sexual Orientation Gender Identity SNOMED-CT Description SNO MED -CT Description Activity Level No of Partners Partner Type UpdatedBy Information is not available HEALTH CONCERNS Problems Concern Status Health Concern problem infor mation not available. Smoking Status Status Years Used Consumed packs p er day Health Concern smoking histo ry information not available. Family History Concern Status Health Concern family histor y information not available. ENCOUNTERS ENCOUNTER INFORMATION Reason for Visit XR Admission July 03, 2024 3:21:00 PM [facility] [address] [facility] [id number] Discharge July 03, 2024 3:21:00 PM [facility] DI SCHARGED TO HOME OR SELF CARE ENCOUNTER DIAGNOSES Notes information is not viviane ilable. Code System Diagnosis Onset Date Diagnosis information is not available. ABSTRACT DIAGNOSES Code System Diagnosis Updated By R05.1 ICD10 ACUTE COUGH [id number] on 2024 5:41:21 AM [facility] J18.9 ICD10 PNEUMONIA, UNSPECIFIED ORGAN ISM [id number] on July 05, 2024 5:41:21 AM [facility] J90 ICD10 PLEURAL EFFUSION , NOT ELSEWHERE CLASSIFIED [id number] on July 05, 2024 5:41:21 AM [facility] J98.4 ICD10 OTHER DISORDERS OF LUNG [id number] on July 05, 2024 5:41:21 AM [facility] R05.1 ICD10 ACUTE COUGH [id number] on 2024 5:41:21 AM [facility] CARE TEAM Care Architect Intern Role NANCY DAMON Admitting STACEY MCFARLANE Primary Care STACEY MCFARLANE Referring NANCY DAMON Primary Attending CARE TEAM CARE road manager Role on Team Status Start Date End Date Update d By DENYS Gonzalez Referring normal July 03 4:00:00 AM [facility] July 03, 2024 3:21:00 PM [facility] [id number] on July 03, 2024 3:25:50 PM [facility] MARISOL Diaz Attending normal July 03, 2024 4:00:00 AM [facility] July 03, 2024 3:21:00 PM [facility] [id number] on July 03, 2024 3:25:50 PM [facility] MARISOL Diaz Admitting normal July 03, 2024 4:00:00 AM [facility] July 03, 2024 3:21:00 PM [facility] [id number] on July 03, 2024 3:25:50 PM [facility] DENYS Gonzalez PCP normal July 03 4:00:00 AM [facility] July 03, 2024 3:21:00 PM [facility] [id number] on July 03, 2024 3:25:50 PM [facility]
--- NOTE | 2024-07-05 13:27 | CT_ITS ---
FINAL REPORT TECHNIQUE: The patient was injected with IV contrast. Axial images were obtained through the chest in a PE protocol. 3-D reconstruction images were also performed. Individualized dose reduction techniques using automated exposure control or adjustment of the MA and/or KV according to patient's size were employed. CLINICAL HISTORY: Acute on chronic resp failure, H/O lung cancer COMPARISON: None FINDINGS: CTA CHEST: Mediastinal vasculature is adequately opacified. No pulmonary artery filling defects are identified to suggest PE. There is no aortic dissection. There is no axillary adenopathy. There is no hilar or mediastinal adenopathy. The heart size is normal. There is no pericardial effusion. There is dense consolidation in both right middle lobe and right lower lobe, with a large right pleural effusion. There is also consolidation present in the posterior left upper lobe, with a small left pleural effusion. Underlying centrally obstructing neoplasia is not excluded, would consider diagnostic and therapeutic thoracentesis on the right. Limited images of the upper abdomen are unremarkable. IMPRESSION: No pulmonary embolus or dissection. Dense consolidation in the right middle lobe and right lower lobe with a large right pleural effusion. There is also consolidation present in the posterior left upper lobe, with a small left pleural effusion. Underlying centrally obstructing neoplasm is not excluded, would consider diagnostic/therapeutic thoracentesis as clinically indicated. Reviewed, Interpreted and Dictated by uRbén Adam MD Transcribed by Mirna Velázquez Authenticated and [facility]
[2024-07-05 13:30] LABS: Basophils # 0.1 K/mm3 (0-0.2); Basophils % 0.3 % (0.1-2.0); Eosinophils % 0.1 % (0.1-12.0); Hematocrit 32.4 % (37.0-47.0); Hemoglobin 9.7 g/dL (12.2-16.2); Lymphocytes # 0.6 K/mm3 (0.7-4.5); Lymphocytes % 2.8 % (10-50); Mean Corpuscular HGB Conc 29.9 g/dL (31.8-35.4); Mean Corpuscular Hemoglobin 28.6 pg (27.0-31.2); Mean Corpuscular Volume 95.6 fl (81-99); Mean Platelet Volume 10.5 fl (7.4-10.4); Monocytes % 4.4 % (1.7-9.3); Neutrophils # 20.9 K/mm3 (1.8-7.8); Neutrophils % 91.6 % (37.0-80.0); Nucleated Red Blood Cells # 0 10^3/uL; Nucleated Red Blood Cells % 0 %; Platelet Count 409 K/mm3 (142-424); Red Blood Count 3.39 M/mm3 (4.20-5.40); Red Cell Distribution Width 15.9 % (11.5-17.5); Red Cell Distribution Width-SD 55.4 fL; White Blood Count 22.8 K/mm3 (4.8-10.8)
[2024-07-05 13:38] LABS: MANUAL DIFFERENTIAL MANUAL DIFFERENTIAL (MANUAL DIFF)
[2024-07-05] MEDS: IPRATROPIUM/ALBUTEROL 3 ML NEB 9 ML IH (13:39)
[2024-07-05] MEDS: FUROSEMIDE 40MG/4ML VIAL 40 MG IV (13:40)
[2024-07-05 13:42] LABS: Albumin Level 3.3 g/dl (3.5-5.0); Chloride 93 mmol/L (98-107); Potassium 4.4 mmoL/L (3.5-5.1); Sodium 139 mmol/L (136-145)
[2024-07-05 13:45] LABS: Alanine Aminotransferase 18 U/L (12-78); Albumin/Globulin Ratio 0.8 (1.1-1.8); Alkaline Phosphatase 113 U/L (38-126); Aspartate Amino Transferase 24 U/L (14-36); Bilirubin,Total 0.3 mg/dl (0.2-1.3); Blood Urea Nitrogen 21 mg/dl (7-17); Creatinine Clearance Estimated 32 mL/min (50-200); Estimated Glomerular Filt Rate 97 ml/min (>60); GFR (African American) 118 ML/MIN (>60); Globulin 4.1 g/dL (1.3-3.2); Glucose 185 mg/dl (74-100); Total Protein,Serum 7.4 g/dl (6.3-8.2)
[2024-07-05 13:48] LABS: Lactate Venous 1.2 mmol/L (0.4-2.0); VBG Base Excess 12.7 mmol/L (-2.4-2.3); VBG HCO3 38.2 mmol/L (23-30); VBG Oxygen Saturation 89.8 % (50-70); VBG PH 7.36 mmol/L (7.31-7.41); VBG PO2 59.3 mmol/L (28-40); VBG Total CO2 40.3 mmol/L (23-27)
[2024-07-05 13:51] LABS: VBG PCO2 69.8 mmol/L (35-51)
[2024-07-05 13:52] LABS: Anion Gap 14.4 mEq/L (5-15); Carbon Dioxide 36 mmol/L (22.0-30.0)
[2024-07-05 13:54] LABS: NT Pro Brain Natriuretic Pep. 3020 pg/mL (0-450)
[2024-07-05 13:58] LABS: Troponin I 0.01 ng/ml (0.00-0.034)
[2024-07-05 13:58] LABS: Adenovirus,PCR Not Detected (NotDetected); Bordetella Pertussis Not Detected (NotDetected); Chlamydophila Pneumoniae, PCR Not Detected (NotDetected); Coronavirus 19, PCR Not Detected (NotDetected); Coronavirus 229E Not Detected (NotDetected); Coronavirus NL63 Not Detected (NotDetected); Coronavirus OC43 Not Detected (NotDetected); Coronovirus HKU1,PCR Not Detected (NotDetected); Human Metapneumovirus Not Detected (NotDetected); Influenza A, PCR Not Detected (NotDetected); Influenza AH1, 2009 Not Detected (NotDetected); Influenza AH1, PCR Not Detected (NotDetected); Influenza AH3,PCR Not Detected (NotDetected); Influenza B, PCR Not Detected (NotDetected); Mycoplasma Pneumoniae, PCR Not Detected (NotDetected); Parainfluenza 1, PCR Not Detected (NotDetected); Parainfluenza 2, PCR Not Detected (NotDetected); Parainfluenza 3, PCR Not Detected (NotDetected); Parainfluenza 4, PCR Not Detected (NotDetected); Respiratory Syncytial Virus Not Detected (NotDetected); Rhinovirus/Enterovirus Not Detected (NotDetected)
[2024-07-05] MEDS: DEXAMETHASONE 4MG/ML 5ML MDV 10 MG IV (13:59)
[2024-07-05 14:00] LABS: Lymphocytes % 3 % (10-50); Monocytes % 2 % (2-9); Neutrophils % 95 % (42-76); Total Cells Counted 100
[2024-07-05] MEDS: 0.9 % SODIUM CHLORIDE 50 ML VIAL IV (14:17)
--- NOTE | 2024-07-05 14:17 | HMH.PHAINT1 ---
Pharmacy Intervention Comments: MEDICATION RECONCILIATION COMPLETED ON PATIENT USING EXTERNAL FILL HISTORY FROM PHARMACY. -JOE ALFRED, FARHAND
[2024-07-05] MEDS: SODIUM CHLORIDE 0.9% 10ML SYR (RAD ONLY) 10 ML IV (14:18)
[2024-07-05] MEDS: IOPAMIDOL-370 (76%);100ML BOTTLE 75 ML IV (14:18)
--- NOTE | 2024-07-05 14:20 | PC.NURSE ---
radiology at bedside.
[2024-07-05 14:26] LABS: Procalcitonin 0.093 ng/mL (0.0-2.0)
--- NOTE | 2024-07-05 14:29 | PC.NURSE ---
RT notified of bipap need.
[2024-07-05 14:32] LABS: Microscopic, Urine URINE MICROSCOPIC (MICROSCOPIC)
[2024-07-05] MEDS: VANCOMYCIN CONSULT REQUEST 1 EACH NOTAPPLIC (14:37)
--- NOTE | 2024-07-05 14:38 | PC.NURSE ---
second set of blood cultures drawn by Madhuri Ayers.
--- NOTE | 2024-07-05 14:39 | PC.NURSE ---
pt placed on bipap at this time .
[2024-07-05 14:46] LABS: Appearance,Urine CLEAR (Clear); Bilirubin,Urine Negative (Negative); Blood, Urine Negative (Negative); Color,Urine YELLOW (Yellow); Glucose,Urine (UA) Negative (Negative); Ketones,Urine Negative (Negative); Leukocyte Esterase,Urine Negative (Negative); Nitrate,Urine Negative (Negative); Protein,Urine Negative (Negative); Specific Gravity, Urine 1.015 (1.005-1.030); Urobilinogen,Urine 0.2 EU/dl (0.2)
[2024-07-05] MEDS: PIPERCILLIN/TAZO 3.375 GM in 0.9 % SODIUM CHLORIDE 50 ML IV (14:46)
[2024-07-05] MEDS: VANCOMYCIN HCL 750 MG in 0.9 % SODIUM CHLORIDE 250 ML 125 MG IV (14:46)
--- NOTE | 2024-07-05 14:55 | PC.NURSE ---
pt desat to 69% on FIO2 35%. RT called. TAMMY Anderson into room and titrated FIO2 to 100T
--- NOTE | 2024-07-05 15:03 | PC.NURSE ---
CALLED MD FOR TRANSFER ON PT SEPSIS WITHOUT SHOCK,ACUTE CHRONIC RESP FAILURE, LUNG CANCER AND POST OBSTRUCTIVE PNEUMONIA PER TAMMY FUENTES
--- NOTE | 2024-07-05 15:07 | PC.NURSE ---
TAMMY Anderson speaking with regarding possible transfer.
--- NOTE | 2024-07-05 15:07 | PC.NURSE ---
TAMMY DEVLIN SPEAKING WITH AT THIS TIME
[2024-07-05 15:12] LABS: Squamous Epithelial Cell,Urine 20-50 #/hpf (0-5)
[2024-07-05 15:15] LABS: Bacteria,Urine Trace /lpf
--- NOTE | 2024-07-05 15:21 | PC.NURSE ---
pt titrated to 90% FIO2 per RT. Sats 100%.
--- NOTE | 2024-07-05 16:18 | PC.NURSE ---
checked flight status with [employer], will call back with weather check
--- NOTE | 2024-07-05 16:21 | PC.NURSE ---
TAMMY DEVLIN SPEAKING WITH NURSE PRACTITIONER FROM [facility]
--- NOTE | 2024-07-05 16:28 | PC.NURSE ---
PT WAS CHANGED AND NEW BED SHEETS PLACED AND BRIEF WAS PUT TO HELP HOLD PUREWICK IN PLACE
--- NOTE | 2024-07-05 16:29 | PC.NURSE ---
flight declined due to weather. [facility] declined due to patient now requiring a bipap
--- NOTE | 2024-07-05 17:41 | PC.NURSE ---
RT called for [facility].
[2024-07-05 17:51] LABS: ABG HCO3 43.9 mmhg (22.0-26.0); ABG Oxygen Saturation 86 % (90-100); ABG PH 7.33 mmol/L (7.35-7.45); ABG PO2 52.5 mmhg (80-100); ABG TCO2 46.5 mmhg (23-27)
--- NOTE | 2024-07-05 17:51 | PC.NURSE ---
Called [facility] back per TAMMY Hill about a follow up for this pt being admitted to . [facility] advised that they were on the waiting list and as soon as a bed opens up they would make contact with us about transferring the pt.
[2024-07-05 18:05] LABS: Allen's Test Acceptable; Oxygen 70% %; Pressure Support 18/8; Vent Rate 20
[2024-07-05 18:06] LABS: ABG PCO2 85.4 mmhg (35.0-45.0); Source Right Radial
--- NOTE | 2024-07-05 18:48 | PC.NURSE ---
Dr. Thomson at bedside to intubate.
[2024-07-05] MEDS: propofoL 100 ML 2.53 MG IV (19:06)
--- NOTE | 2024-07-05 19:07 | XR_ITS ---
PROCEDURE INFORMATION: Exam: XR Chest Exam date and time: 07/05/2024 7:02 PM Age: 78 years old Clinical indication: Device placement; Ett placement (vent status); Additional info: Post intubation TECHNIQUE: Imaging protocol: Radiologic exam of the chest. Views: 1 view. COMPARISON: CR XR CHEST PORTABLE 07/05/2024 2:20 PM FINDINGS: Tubes, catheters and devices: There has been interval placement of endotracheal tube which appears to be in good position, with the tip approximately 4 cm above the mine. Lungs: Dense consolidative atelectasis throughout the right lower lung. Focal consolidative atelectasis in the lingula appears stable. Pleural spaces: Large volume right pleural fluid persists. No pneumothorax. Heart/Mediastinum: Unremarkable. No cardiomegaly. Vasculature: Moderate atherosclerotic calcification of the aorta Bones/joints: Bones are diffusely osteopenic. Orthopedic hardware partially visualized in the right humerus. No acute fracture evident IMPRESSION: 1. Appropriate position of the endotracheal tube. 2. Persistent significant right pleural fluid and consolidative atelectasis and lingular consolidative atelectasis
--- NOTE | 2024-07-05 19:18 | XR_ITS ---
PROCEDURE INFORMATION: Exam: XR Abdomen Exam date and time: 07/05/2024 7:30 PM Age: 78 years old Clinical indication: Device placement; Gi device; Nasogastric tube; Additional info: Ng placement TECHNIQUE: Imaging protocol: Radiologic exam of the abdomen. Views: Frontal supine view of the abdomen. 1 View. COMPARISON: CR XR CHEST PORTABLE 07/05/2024 7:02 PM FINDINGS: Tubes, catheters and devices: Distal end of esophagogastric tube is in the mid stomach with side port in the proximal stomach. Lungs: Dense consolidative atelectasis persists in the right lower chest. Pleural spaces: Persistent right pleural fluid Gastrointestinal tract: Normal. No bowel dilation. Bones/joints: Unremarkable. IMPRESSION: Appropriate position of the esophagogastric tube
--- NOTE | 2024-07-05 19:24 | PC.NURSE ---
current vent settings FIO2-80%, TV-400, peep-5, rate-18.
--- NOTE | 2024-07-05 19:28 | PC.NURSE ---
Updated [facility] about this pt. Justin MUNOZ is speaking with them at this time
--- NOTE | 2024-07-05 19:34 | PC.NURSE ---
Radiology at bedside for xray of NG placement.
[2024-07-05] MEDS: ETOMIDATE 40MG/20ML VIAL 20 MG IV (19:35)
[2024-07-05] MEDS: SUCCINYLCHOLINE 20MG/ML 10 ML MDV 50 MG IV (19:36)
--- NOTE | 2024-07-05 19:41 | PC.NURSE ---
Spoke with [facility] about transfer, TAMMY Couch speaking with transfer physician at this time
--- NOTE | 2024-07-05 19:57 | PC.NURSE ---
[facility] phone [facility]. He is waiting for weather report from [employer] to say yes or no
--- NOTE | 2024-07-05 19:58 | PC.NURSE ---
[facility] minute ETA. Face sheet and PCS being faxed now
[2024-07-05 20:18] LABS: ABG Base Excess 12.9 mmol/L (-2.4-2.3); ABG HCO3 36.1 mmhg (22.0-26.0); ABG Oxygen Saturation 99 % (90-100); ABG PCO2 47.8 mmhg (35.0-45.0); ABG PO2 135.7 mmhg (80-100); ABG TCO2 37.6 mmhg (23-27); Oxygen 60 %; Tidal Volume 400
[2024-07-05 20:19] LABS: Allen's Test Non Applicable; PEEP 5; Source Right Radial; Vent Rate 18
[2024-07-05 20:24] LABS: Troponin I < 0.01 ng/ml (0.00-0.034)
[2024-07-05] MEDS: 0.9 % SODIUM CHLORIDE 1000ML 1,000 ML 999 ML IV (20:24)
--- NOTE | 2024-07-05 20:48 | PC.NURSE ---
report called to Rose FOX at [facility] at this time.
--- NOTE | 2024-07-05 21:03 | PC.NURSE ---
[facility] at bedside.
--- NOTE | 2024-07-05 21:20 | PC.NURSE ---
Pt DC with [facility]. report given to flight nurse.
--- NOTE | 2024-07-08 10:32 | PC.NURSE ---
Called [facility] and s/w Charge Nurse Franco to review ET sputum culture results. I also updated him that Blood cultures are negative thus far at 48hr. He did want to let staff know per their Full Respiratory panel, she is COVID + obtain on 07/05/24 @ 2300.
== END 2024-07-05 21:23 | disposition short-term general hospital (02) ==
PROVIDERS: Emergency Medicine; Physician Assistant; Emergency Provider Emergency Medicine; PCP Nurse Practitioner Family
DX: A41.9 Sepsis, unspecified organism (principal); J96.21 Acute and chronic respiratory failure with hypoxia; J18.9 Pneumonia, unspecified organism; J98.11 Atelectasis; J90 Pleural effusion, not elsewhere classified
CPT/HCPCS: 31500; 51702; 71045; 71275; 74018; 80053; 81001; 82803; 83605; 83880; 84145; 84484; 85007; 85025; 85027; 87040; 87070; 87205; 87633; 96361; 96365; 96366; 96367; 96374; 96375; 99291; J0330; J1100; J1938; J2543; J2704; J3370; J7030; Q9967